=== PATIENT | female | born 1950 | race Caucasian/White ===

== ENCOUNTER 2024-10-26 14:21 | Outpatient (AMB) | payer MEDICARE, SELFPAY ==
--- NOTE | 2024-10-26 14:25 | HO.NEPHOV_ITS ---
Vital Signs 10/26/24 14:31 Height 5 ft 8 in Weight 183 lb 2 oz BMI 27.8 BP 150/72 H Blood Pressure Location Lt brachial Position Sitting Pulse 61 Pulse Source Pulse Oximeter Pulse Oximetry (%) 95 Oxygen Delivery Method Room Air Intake Visit Reasons: ENP: Abnormality of albumin-Conf Supervisor Of Instruction Required: No Accompanied by: Spouse Allergies hydrochlorothiazide Allergy (Verified 10/26/24 14:31) Unknown lisinopril Allergy (Verified 10/26/24 14:31) Unknown verapamil Allergy (Verified 10/26/24 14:31) Unknown adhesives Allergy (Uncoded 10/24/24 14:54) Unknown HPI Comments Details: I had the privilege of seeing Jessica in consultation for CKD and hypertension. She is a delightful 74 year old with H/O hypertension, dyslipidemia, CAD as well as cardiac arrest in 2009. She also has H/O CVA. She has H/O proteinuria. She has no H/O DM. She has some edema. She denies chest pain, SOB, PND or orthopnea. She is not aware of any renal artery stenosis. She denies nausea, vomiting, diarrhea, abdominal pain or orthostatic symptoms. She has no recurrent sore throat, epistaxis, hematuria, photosensitivity, skin rashes, sensori neural deafness. She did not have other complaints at the time of this office visit [facility] Medical History (Updated 12/09/24 @ 21:13 by Phani Lucas MD) Cerebral infarction Atrial fibrillation Pacemaker CAD (coronary artery disease) Hyperlipidemia Hypertension Surgical History (Updated 10/26/24 @ 14:28 by Becky Saleh MA) H/O heart artery stent H/O wrist surgery History of cataract surgery S/P ablation of atrial fibrillation Family History (Updated 10/26/24 @ 14:28 by Becky Saleh MA) Brother Cancer Heart disease Hypertension Atrial fibrillation Father Heart disease Sister Stroke Hypertension Social History (Updated 10/26/24 @ 14:26 by Becky Saleh MA) Alcohol intake: current Comment: Wine- Occasionally Patient Tobacco Use Status: Former Tobacco user Review of Systems Const All systems reviewed & are unremarkable except as noted in HPI and below Physical Exam Vital Signs: Last Vital Signs Pulse 61 10/26/24 14:31 BP 150/72 H 10/26/24 14:31 Pulse Ox 95 02/27/25 14:31 Oxygen Delivery Method Room Air 02/27/25 14:31 BMI result Body Mass Index 27.8 Const General: comfortable and no acute distress Orientation/consciousness: patient oriented x3 HEENT Head: Yes normocephalic Mouth: Normal oral and palatal mucosa present Eyes EOM: EOMs intact bilaterally Neck Neck: Yes supple Resp Auscultation: clear to auscultation bilaterally Cardio Jugular venous distension: no JVD Rate: regular rate GI Palpation (GI): Soft to palpation Auscultation: normal bowel sounds General: Yes no CVA tenderness Back/Spine/Pelvis Back: no CVA tenderness Skin General skin exam: no rashes or lesions noted Neuro General: patient oriented x3 and moves all extremities Extrem General: Yes edema Results Reviewed Nephrology Results: No Data to Display Assessment & Plan Assessment & Plan (1) Hypertension: Code(s): I10 - Essential (primary) hypertension Category: Medical Qualifiers: Hypertension type: primary hypertension Qualified Code(s): I10 - Essential (primary) hypertension (2) CKD stage 3a, GFR 45-59 ml/min: Code(s): N18.31 - Chronic kidney disease, stage 3a Category: Medical Plan 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 She has H/O CAD as well as CVA. She has H/O mild proteinuria. She is on Valsartan. She has some edema. I started her on furosemide. She may need Doppler of renal arteries. Her serum creatinine is currently stable. She does not take excess Na and avoids NSAID's. I did not make any other medication changes but further management is pending evolving data. Answered all questions. Orders: Orders Immunofixation Pnl, Serum 3 Months N18.31 - Chronic kidney disease, stage 3a, I10 - Essential (primary) hypertension Blood Urea Nitrogen 6 Months I10 - Essential (primary) hypertension, N18.31 - Chronic kidney disease, stage 3a Creatinine 3 Months N18.31 - Chronic kidney disease, stage 3a, I10 - Essential (primary) hypertension Blood Urea Nitrogen 3 Months N18.31 - Chronic kidney disease, stage 3a, I10 - Essential (primary) hypertension Electrolytes 3 Months N18.31 - Chronic kidney disease, stage 3a, I10 - Essential (primary) hypertension Calcium 3 Months N18.31 - Chronic kidney disease, stage 3a, I10 - Essential (primary) hypertension Creatinine 6 Months I10 - Essential (primary) hypertension, N18.31 - Chronic kidney disease, stage 3a Electrolytes 6 Months I10 - Essential (primary) hypertension, N18.31 - Chronic kidney disease, stage 3a Medications: New furosemide (Lasix) 20 mg PO 3XW 40 tabs 3RF 3 months Coding Level of Care Code New Pt Level 4 (89838) Diagnoses Primary hypertension I10 Hypertension type: primary hypertension CKD stage 3a, GFR 45-59 ml/min N18.31
[2024-10-26 14:31] VITALS: BP 150/72; PULSE 61; O2SAT 95; BMI 27.8
--- OUTSIDE RECORDS SUMMARY | 2024-10-26 17:29 | XMS_ITS | Clinical Summary ---
Author Organization [address] [place] [address] [place] [phone] Phone Care Team Providers Care Retail Account Manager Name Role Phone Loyd Moore MD Primary Care Provider [phone] Allergies Active Allergy Reactions Criticality Noted Date Comments Hydrochlorothiazide Rash Low 10/30/2019 Lisinopril Cough 10/30/2019 cough Verapamil Nausea Only 07/30/2020 Upset stomach Medications rosuvastatin (CRESTOR) 40 mg tablet Take 1 tablet (40 mg total) by mouth 1 (one) time each day. Active valsartan (DIOVAN) 320 mg tablet Take 1 tablet (320 mg total) by mouth 1 (one) time each day. Active nitroglycerin (NITROSTAT) 0.[address] 1 Tab under the tongue as needed for Chest pain. - Sublingual Active DICLOFENAC SODIUM TOP Place on the skin if needed. Diclofenac Sodium 1 % Gel-Apply 1 Int'l Units topically as needed. - Topical Active cholecalciferol (VITAMIN D-3) 25 mcg (1,000 unit) tablet Take 4 tablets (4,000 Units total) by mouth 1 (one) time each day. Active alendronate (FOSAMAX) 70 mg tablet Take 1 tablet (70 mg total) by mouth every 7 (seven) days. 4 Active aspirin 81 mg EC tablet Take 1 tablet (81 mg total) by mouth 1 (one) time each day. Active clopidogreL (PLAVIX) 75 mg tablet Take 1 tablet (75 mg total) by mouth 1 (one) time each day. Active amLODIPine (NORVASC) 10 mg tabletIndication s:Hypertension, unspecified type Take 1 tablet (10 mg total) by mouth 1 (one) time each day. 90 each 3 4 Active Active Problems Problem Noted Date Diagnosed Date Permanent atrial fibrillation 07/20/2024 PAH (pulmonary artery hypertension) 07/20/2024 Nonrheumatic tricuspid valve regurgitation 07/20 Nonrheumatic mitral valve regurgitation 07/20/20 24 Presence of Watchman left atrial appendage closu re device 07/10/2024 Mixed hyperlipidemia 06/13/2024 Edema 06/13/2024 Postural dizziness with presyncope 06/13/2024 Cough 06/13/2024 Coronary arteriosclerosis 06/13/2024 Assessment & Plan (07/03/2024 10:33 AM EST): No active angina. Tolerating aspirin, blood pressure lowering medicines and antiplatelet therapy with Plavix. Significant bruising noted. Continues on rosuvastatin with excellent lipid control. Nonrheumatic aortic valve regurgitation 06/13/20 24 Chronic venous insufficiency 06/13/2024 Occlusion of middle cerebral artery 06/13/2024 HTN (hypertension) 06/13/2024 Assessment & Plan (07/03/2024 10:34 AM EST): Systolic hypertension is not adequately controlled on current medicines. She confirmed that her home readings are elevated as well. She will continue a low- sodium diet, avoidance of heavy alcohol or constant NSAID use. Am going to increase amlodipine to 10 mg daily. Resolved Problems Problem Noted Date Diagnosed Date Resolved Date Arrhythmia 06/13/2024 07/20/2024 Assessment & Plan (07/03/2024 10:44 AM EST): Chronic persistent atrial fibrillation status post AV node ablation and permanent pacemaker. Status post Watchman device. Continue dual antiplatelet therapy until October. Will schedule transesophageal echocardiogram. Encounters Date Type Department Care Team Description 09/06/2024 9:55 AM EST Ancillary Procedure [facility] - [address] [place] [address] from Last 3 Months Immunizations Name Administration Dates Next Due Pfizer (ages 12 & older) VILLA S-CoV-2 COVID-19, mRNA, LNP-S, katie-sucrose, preservative free 01/15/2022 Pfizer SARS-CoV-2 COVID-19, mRNA, LNP-S, preservative free 06/19/2021,11/25/2020,11/03/2020 Surgical History Surgery Date Site/Laterality Comments CARDIAC CATH PROCEDURE Medical History Medical History Date Comments CKD (chronic kidney disease) Aphasia Social History Tobacco Use Types Packs/Day Years [...] Orientation Straight 07/10/2024 11 :29 AM EST Obstetrics History Last Filed Vital Signs Vital Sign Reading Time Taken Comments Blood Pressure 136/70 07/20/2024 3:16 PM EST Pulse 78 07/20/2024 3:16 PM EST Temperature 36.6 ??C (97.8 ??F) 07/10/2024 11:[address] Respiratory Rate 18 07/10/2024 11:55 AM EST Oxygen Saturation 98% 07/20/2024 3:16 PM EST Inhaled Oxygen Concentration - - Weight 81.2 kg (179 lb) 07/20/2024 3:16 PM EST Height 172.7 cm (5' 8 ) 07/20/2024 3:16 PM EST Body Mass Index 27.22 07/20/2024 3:16 PM EST Plan of Treatment Upcoming Encounters Date Type Department Care Team (Late st Contact Info) Description 12/07/2024 8:30 AM EDT Ancillary Procedure [facility] - [address] [place] [address] 01/17/2025 1:30 PM EDT Ancillary Procedure [facility] - [address] [phone] Health Maintenance Due Date Last Done Comments Pneumococcal Vaccine: 50+ Years (1 of 1 - PCV) 1998 Depression Screening 08/06/2022 Falls Risk Assessment 08/06/2022 Hepatitis C Screening 08/06/2022 Osteoporosis Screening (Bone Density Screening) 08/06/2022 Social Influencers of Health Screening 08/06/2022 RSV Immunization Patients 60+ Years Old (1 - 1-dose 75+ series) 2023 Medicare Annual Wellness Visit 10/15/2023 10/15/2022 COVID-19 Vaccine ( - season) 2024 01/15/2022, 06/19/2021, 11/25/2020, Additional history exists Influenza Vaccine (#1) 2024 , 05/11/2023, 05/25/2022, Additional history exists Hypertension/CHF/CAD Annual BMP Blood Test 10/06/2025 10/06/2024, 05/02/2024, 05/02/2024 Cholesterol Screening (Lipid Panel) 10/06/2029 10/06/2024 DTaP,Tdap,and Td Vaccines (2 - Td or Tdap) 05/23/2032 05/23/2022 Zoster Vaccines Completed 04/10/2024, 0601/2024, 07/09/2014 HIB Vaccines Aged Out No longer eligi ble based on patient's age to complete this topic HPV Vaccines Aged Out No longer eligi ble based on patient's age to complete this topic Hepatitis A Vaccines Aged Out No long er eligible based on patient's age to complete this topic Hepatitis B Vaccines Aged Out No long er eligible based on patient's age to complete this topic IPV Vaccines Aged Out No longer eligi ble based on patient's age to complete this topic MMR Vaccines Aged Out No longer eligi ble based on patient's age to complete this topic Meningococcal ACWY Vaccine Aged Out N o longer eligible based on patient's age to complete this topic Meningococcal B Vacine Aged Out No lo nger eligible based on patient's age to complete this topic RSV Immunization Patients Under 20 months Aged Out No longer eligible based on patient's age to complete this topic Varicella Vaccines Aged Out No longer eligible based on patient's age to complete this topic Medical Devices Implanted Type Area Quarantine Officer Device Identifier Shelf Expiration Date Model / Serial / Lot Medt-Card [id number] Implanted:03/2020 (Quantity not on file) Cardiac Pacemaker [employer] - CARDIAC RHYTH-CRDM [id number] / [id number] S / Device Clsur Watchman Flx Pro Aurea 35mm Bsci-Prnt [id number] Implanted:Qty : 1 on 05/11/2024 by Chito Cuellar MD Left: Chest Your Image by Brooke BRANDEN 01/19/2027 [id number] / / [id number] Procedures Procedure Name Priority Date/Time Associated Diagnosis Comments MICROALBUMIN CREATININE URINE RATIO Routine 10/06/2024 12:40 PM EST Essential hypertension, malignant COMPREHENSIVE METABOLIC PANEL Routine 10/06/2024 9:27 AM EST Essential hypertension, malignant LIPID PANEL WITH REFLEX TO DIRECT LDL Routine 10/06/2024 9:27 AM EST Essential hypertension, malignant CARDIAC DEVICE CHECK- REMOTE- MURJ Routine 09/06/2024 9:51 AM EST from Last 3 Months Results * (ABNORMAL) Microalbumin creatinine urine ratio (10/06/2024 12:40 PM EST) Creatinine, Urine 129.0 mg/dL LAB CHEMISTRY METHOD 10/06/2024 3:52 PM EST [facility] Microalb, Ur 474.0(H) 0.0 - 29.0 mg/L LAB CHEMISTRY METHOD 10/06/2024 3:52 PM EST [facility] Microalb/Crea t Ratio 367(H) <30 mg/g creat LAB CHEMISTRY METHOD 10/06/2024 3:52 PM EST [facility] Urine Urine specimen obtained by clean catch procedure / Unknown Non-blood Collection / Unknown 10/06/2024 12:40 PM EST 10/06/2024 12:40 PM EST us Vi [facility] URINE ORDERABLES Final Result [facility] [address] [place] [address], [place] [phone] * Lipid panel with reflex to direct LDL (10/06/2024 9:27 AM EST) Cholesterol 134 0 - 200 mg/dL LAB CHEMISTRY METHOD 10/06/2024 12:57 PM EST [facility] Triglycerides 49 0 - 150 mg/dL LAB CHEMISTRY METHOD 10/06/2024 12:57 PM EST [facility] HDL 83 >=40 mg/dL LAB CHEMISTRY METHOD 10/06/2024 12:57 PM [facility] LDL Calculated 41 0 - 100 mg/dL LAB CHEMISTRY METHOD 10/06/2024 12:57 PM [facility] VLDL Cholesterol Huey 9.8 mg/dL LAB CHEMISTRY METHOD 10/06/2024 12:57 PM [facility] Non HDL Chol. (LDL+VLDL) 51 <145 mg/dL LAB CHEMISTRY METHOD 10/06/2024 12:57 PM [facility] Chol/HDL Ratio 1.6 0.0 - 4.4 LAB CHEMISTRY METHOD 10/06/2024 12:57 PM [facility] Blood Venous blood specimen / Unknown Venipuncture / Unknown 10/06/2024 9:27 AM EST 10/06/2024 9:27 AM EST us Vi [facility] BLOOD ORDERABLES Final Result [facility] [address] [place] [address], [place] [phone] * (ABNORMAL) Comprehensive metabolic panel (10/06/2024 9:27 AM EST) Sodium 140 133 - 145 mmol/L LAB CHEMISTRY METHOD 10/06/2024 12:54 PM [facility] Potassium 4.3 3.5 - 5.5 mmol/L LAB CHEMISTRY METHOD 10/06/2024 12:54 PM [facility] Chloride 109 96 - 110 mmol/L LAB CHEMISTRY METHOD 10/06/2024 12:54 PM [facility] CO2 24 21 - 32 mmol/L LAB CHEMISTRY METHOD 10/06/2024 12:54 PM [facility] Anion Gap 7 3 - 11 LAB CHEMISTRY METHOD 10/06/2024 12:54 PM [facility] Glucose 92 70 - 100 mg/dL LAB CHEMISTRY METHOD 10/06/2024 12:54 PM [facility] BUN 27(H) 5 - 25 mg/dL LAB CHEMISTRY METHOD 10/06/2024 12:54 PM [facility] Creatinine 1.11(H) 0.50 - 1.10 mg/dL LAB CHEMISTRY METHOD 10/06/2024 12:54 PM [facility] eGFR 52(L) >=60 mL/min/1. 73m2 LAB CHEMISTRY METHOD 10/06/2024 12:54 PM [facility] Comment:Calculation based on the??Chronic Kidney Disease Epidemiology Collaboration (CKD-EPI) equation refit??without adjustment for race. BUN/Creatinine Ratio 24.3 LAB CHEMISTRY METHOD 10/06/2024 12:54 PM [facility] Calcium 9.1 8.5 - 10.5 mg/dL LAB CHEMISTRY METHOD 10/06/2024 12:54 PM [facility] AST (SGOT) 21 10 - 42 unit/L LAB CHEMISTRY METHOD 10/06/2024 12:54 PM [facility] ALT (SGPT) 17 10 - 60 unit/L LAB CHEMISTRY METHOD 10/06/2024 12:54 PM [facility] Alkaline Phosphatase 76 42 - 121 unit/L LAB CHEMISTRY METHOD 10/06/2024 12:54 PM EST [facility] Total Protein 6.8 6.0 - 8.0 g/dL LAB CHEMISTRY METHOD 10/06/2024 12:54 PM EST [facility] Albumin 3.9 3.2 - 5.0 g/dL LAB CHEMISTRY METHOD 10/06/2024 12:54 PM EST [facility] Total Bilirubin 0.7 0.0 - 1.4 mg/dL LAB CHEMISTRY METHOD 10/06/2024 12:54 PM EST [facility] Blood Venous blood specimen / Unknown Venipuncture / Unknown 10/06/2024 9:27 AM EST 10/06/2024 9:27 AM EST [facility] BLOOD ORDERABLES Final Result Performing Organization Address City/State/[facility] Co de Phone Number [facility] [address] [place] [address], * Cardiac device check - Remote- MURJ (09/06/2024 9:51 AM EST) Date Time Interrogation Session [id number] CV DEVICE CHECK Type Interrogation Session Remote CV DEVICE CHECK Implantable Pulse Generator Quarantine Officer MDT CV DEVICE CHECK Implantable Pulse Generator Type IPG CV DEVICE CHECK Implantable Pulse Generator Model [id number] CV DEVICE CHECK Implantable Pulse Generator Serial Number [id number] CV DEVICE CHECK Implantable Pulse Generator Implant Date [id number] CV DEVICE CHECK Battery Remaining Longevity 96.0 CV DEVICE CHECK Battery Voltage 2.980 CV D EVICE CHECK Battery CASH APPLICATION CLERK Trigger 2.558 CV DEVICE CHECK Battery Status Middle of Service CV DEVICE CHECK Nish Statistic RV Percent Paced 99.99 CV DEVICE CHECK Lead Channel Sensing Intrinsic Amplitude 11.700 CV DEVICE CHECK Lead Channel Setting Sensing Sensitivity 2.00 CV DEVICE CHECK Lead Channel Impedance Value 530 CV DEVICE CHECK Lead Channel Pacing Threshold Amplitude 0.500 CV DEVICE CHECK Lead Channel Pacing Threshold Pulse Width 0.2 CV DEVICE CHECK Lead Channel RV Pacing Threshold Date 2024-09-05 CV DEVICE CHECK Lead Channel Setting Pacing Amplitude 1.000 CV DEVICE CHECK Lead Channel Setting Pacing Pulse Width 0.2 CV DEVICE CHECK Nish Setting Mode (NBG Code) VVIR CV DEVICE CHECK Nish Setting Lower Rate Limit 60 CV DEVICE CHECK Nish Setting Maximum Sensor Rate 120 CV DEVICE CHECK Date of Service 2024-09-15 CV DEVICE CHECK Anatomical Region Laterality Modality Device Interroga tion 09/05/2024 12:4 7 PM EST Impressions 09/06/2024 9:42 AM EST Normal Remote: No Events * Normal Device Function * Alerts or events: None * Battery: OK, 8.00 yrs * Sensing, impedance and thresholds reviewed * Programmed parameters reviewed * Presenting rhythm reviewed * Heart Rate Histograms reviewed * No significant changes noted Normal Remote: No Events * Normal Device Function * Alerts or events: None * Battery: , * Sensing, impedance and thresholds reviewed * Programmed parameters reviewed * Presenting rhythm reviewed * Heart Rate Histograms reviewed * No significant changes noted Narrative Procedure Note Chito Cuellar MD - 09/06/2024 IMPRESSION: Normal Remote: No Events * Normal Device Function * Alerts or events: None * Battery: OK, 8.00 yrs * Sensing, impedance and thresholds reviewed * Programmed parameters reviewed * Presenting rhythm reviewed * Heart Rate Histograms reviewed * No significant changes noted Normal Remote: No Events * Normal Device Function * Alerts or events: None * Battery: , * Sensing, impedance and thresholds reviewed * Programmed parameters reviewed * Presenting rhythm reviewed * Heart Rate Histograms reviewed * No significant changes noted Chito Cuellar MD CV IMPLANTABLE CARDIAC DEVICE PROCEDURES Final Result from Last 3 Months Insurance MEDICARE [facility] Advance Directives Documents on File Type Date Recorded Patient Plain Goods Hemmer Expl anation Health Care Decision (hx) 05/11/2024 ADVANCE DIRECTIVE AN D LIVING WILL Health Care Decision (hx) 02/14/2024 ADVANCE DIRECTIVE Health Care Decision (hx) 02/14/2024 ADVANCE DIRECTIVE Care Teams Retail Account Manager Relationship Specialty Start Date End Date Loyd Moore MD [address] [place] [phone] PCP - General 12/07/23
--- OUTSIDE RECORDS SUMMARY | 2024-10-26 17:29 | XMS_ITS ---
Author Organization [facility] Address [address] [place] [address] Care Team Providers [place] Dispatch Supervisor Name Role Phone ISAEL ANETTE Primary Care Provider [phone] Allergies Allergen (clinical drug ingredient) Drug/Non Drug Allergy documented on EMR Reaction Allergy Type Onset Date Status adhesives (uncoded) Unknown Allergy Active hydrochlorothiazide hydroCHLOROthiazide Unknown D rug Allergy Active Lisinopril Unknown Drug Allergy Active verapamil Verapamil HCl Unknown Drug Allergy Active amlodipine Amlodipine Dependent edema Drug Allergy 10/05/19 25 Active Reason For Referral Reason CKD 3A- Dr Lucas Diagnosis 1 Chronic kidney disea se, stage 3 unspecified (N18.30) Referral Organization [facility] Referring Provider First Name ANETTE Referring Provider Last Name MIKHAILCem Referring Provider Speciality Internal M edicine Referred Provider Specialty Nephrology General Notes Referral faxed to [facility]. Please call patient to schedule.Malini Christy 10/20/2024 09:48:06 AM > Referral Priority Routine REASON FOR VISIT 1 week follow up Medications Medication SIG (Take, Route, Frequency, Duration) Notes Start Date End Date Status Sucralfate 1 GM 1 tablet on an empty stomach Orally Twice a day for 30 days 10/05/2024 Active Aspir-81 Active Clopidogrel Bisulfate 75 MG 1 tablet Ora lly Once a day Active Vitamin D 25 MCG (1000 UT) 1 tablet Oral ly Once a day Active Carvedilol 6.25 MG 1 tablet with food O rally Twice a day for 90 days Active Pantoprazole Sodium 20 MG TAKE 1 TABLET BY MOUTH DAILY 0.5 TO 1 HOUR BEFORE BREAKFAST for 90 Active Rosuvastatin Calcium 40 MG 1 tablet Oral ly Once a day Active Diovan 320 MG 1 tablet Orally Once a day Active Social History Tobacco Use: Social History Observation Description Date Details (start date - stop date) Former Smoker NA - NA Tobacco Use/Smoking Question Answer Notes Are you a former smoker How long has it been since you last smoked? > 10 years Problems Problem Type SNOMED Code ICD Code Onset Dates Problem Status W/U Status Risk Notes Problem Peripheral venous insufficiency (58103071) Venous insufficiency (chronic) (peripheral) (I87.2) Active confirmed Vital Signs Temperature 95.6 degrees Fahrenheit 10/11/19 25 Oximetry 97 % 10/11/2024 Heart Rate 63 /min 10/11/2024 Blood pressure systolic 130 mm Hg 10/11/19 25 Blood pressure diastolic 80 mm Hg 025 Weight 179.4 lbs 10/11/2024 BMI 27.27 kg/m2 10/11/2024 Height 5'8 in 10/11/2024 Encounters Encounter Location Date Provider Diagnosis [facility] [address] [address] 10/11/2024 ANETTE KIRKLAND Venous insufficiency (chronic) (peripheral) I87.2 ; Essential (primary) hypertension I10 ; Mixed hyperlipidemia E78.2 ; Unspecified atrial fibrillation I48.91 and Gastro-esophageal reflux disease without esophagitis K21.9 Assessments Encounter Date Diagnosis (ICD Code) Assessment Notes Treatment Notes Treatment Clinical Notes Section Notes 10/11/2024 Venous insufficiency (chronic) (peripheral) (ICD-10 - I87.2) Mrs Flores is a 74-year-old lady with CAD; s/p cardiac arrest in 2009, status post pacemaker for sick sinus rhythm, atrial fibrillation s/p ablation x 3; follows up with Dr Alvarado at [facility], hypertension and hyperlipidemia is here for follow-up. She was seen for acid reflux and bilateral pedal edema and amlodipine was stopped on last visit. Plan is as follows Acid reflux. She is off alendronate and she is on Protonix 20 mg 1 tablet daily along with sucralfate 1 g twice a day and dietary restrictions discussed. She is also waiting to see GI for upper endoscopy. Bilateral venous insufficiency. Amlodipine 5 mg was stopped on last visit but she has significant reticular veins and varicose veins which most likely is the reason for her bilateral pedal edema. At this point low-sodium diet, keep legs elevated and use compression stockings. Chronic kidney disease stage IIIa. She has mild bilateral pedal edema which is coming from venous insufficiency. She is given referral to Dr. Lucas for further evaluation and she may need diuretics for pedal edema. avoid NSAIDs and take Tylenol for pain Hypertension. Blood pressure well controlled on Coreg 6.25 mg 1 tablet twice a day and she is also on Diovan 320 mg 1 tablet daily. Atrial fibrillation status post ablation and watchman procedure. She is in sinus rhythm. She is on Plavix until October 2024. She is rate controlled. Hyperlipidemia. Continue Crestor 40 mg daily 10/11/2024 Essential (primary) hypertension (ICD-10 - I10) Mrs Flores is a 74-year-old lady with CAD; s/p cardiac arrest in 2009, status post pacemaker for sick sinus rhythm, atrial fibrillation s/p ablation x 3; follows up with Dr Alvarado at [facility], hypertension and hyperlipidemia is here for follow-up. She was seen for acid reflux and bilateral pedal edema and amlodipine was stopped on last visit. Plan is as follows Acid reflux. She is off alendronate and she is on Protonix 20 mg 1 tablet daily along with sucralfate 1 g twice a day and dietary restrictions discussed. She is also waiting to see GI for upper endoscopy. Bilateral venous insufficiency. Amlodipine 5 mg was stopped on last visit but she has significant reticular veins and varicose veins which most likely is the reason for her bilateral pedal edema. At this point low-sodium diet, keep legs elevated and use compression stockings. Chronic kidney disease stage IIIa. She has mild bilateral pedal edema which is coming from venous insufficiency. She is given referral to Dr. Lucas for further evaluation and she may need diuretics for pedal edema. avoid NSAIDs and take Tylenol for pain Hypertension. Blood pressure well controlled on Coreg 6.25 mg 1 tablet twice a day and she is also on Diovan 320 mg 1 tablet daily. Atrial fibrillation status post ablation and watchman procedure. She is in sinus rhythm. She is on Plavix until October 2024. She is rate controlled. Hyperlipidemia. Continue Crestor 40 mg daily 10/11/2024 Mixed hyperlipidemia (ICD-10 - E78.2) Mrs Flores is a 74-year-old lady with CAD; s/p cardiac arrest in 2009, status post pacemaker for sick sinus rhythm, atrial fibrillation s/p ablation x 3; follows up with Dr Alvarado at [facility], hypertension and hyperlipidemia is here for follow-up. She was seen for acid reflux and bilateral pedal edema and amlodipine was stopped on last visit. Plan is as follows Acid reflux. She is off alendronate and she is on Protonix 20 mg 1 tablet daily along with sucralfate 1 g twice a day and dietary restrictions discussed. She is also waiting to see GI for upper endoscopy. Bilateral venous insufficiency. Amlodipine 5 mg was stopped on last visit but she has significant reticular veins and varicose veins which most likely is the reason for her bilateral pedal edema. At this point low-sodium diet, keep legs elevated and use compression stockings. Chronic kidney disease stage IIIa. She has mild bilateral pedal edema which is coming from venous insufficiency. She is given referral to Dr. Lucas for further evaluation and she may need diuretics for pedal edema. avoid NSAIDs and take Tylenol for pain Hypertension. Blood pressure well controlled on Coreg 6.25 mg 1 tablet twice a day and she is also on Diovan 320 mg 1 tablet daily. Atrial fibrillation status post ablation and watchman procedure. She is in sinus rhythm. She is on Plavix until October 2024. She is rate controlled. Hyperlipidemia. Continue Crestor 40 mg daily 10/11/2024 Unspecified atrial fibrillation (ICD-10 - I48.91) Mrs Flores is a 74-year-old lady with CAD; s/p cardiac arrest in 2009, status post pacemaker for sick sinus rhythm, atrial fibrillation s/p ablation x 3; follows up with Dr Alvarado at [facility], hypertension and hyperlipidemia is here for follow-up. She was seen for acid reflux and bilateral pedal edema and amlodipine was stopped on last visit. Plan is as follows Acid reflux. She is off alendronate and she is on Protonix 20 mg 1 tablet daily along with sucralfate 1 g twice a day and dietary restrictions discussed. She is also waiting to see GI for upper endoscopy. Bilateral venous insufficiency. Amlodipine 5 mg was stopped on last visit but she has significant reticular veins and varicose veins which most likely is the reason for her bilateral pedal edema. At this point low-sodium diet, keep legs elevated and use compression stockings. Chronic kidney disease stage IIIa. She has mild bilateral pedal edema which is coming from venous insufficiency. She is given referral to Dr. Lucas for further evaluation and she may need diuretics for pedal edema. avoid NSAIDs and take Tylenol for pain Hypertension. Blood pressure well controlled on Coreg 6.25 mg 1 tablet twice a day and she is also on Diovan 320 mg 1 tablet daily. Atrial fibrillation status post ablation and watchman procedure. She is in sinus rhythm. She is on Plavix until October 2024. She is rate controlled. Hyperlipidemia. Continue Crestor 40 mg daily 10/11/2024 Gastro-esophageal reflux disease without esophagitis (ICD-10 - K21.9) Mrs Flores is a 74-year-old lady with CAD; s/p cardiac arrest in 2009, status post pacemaker for sick sinus rhythm, atrial fibrillation s/p ablation x 3; follows up with Dr Alvarado at [facility], hypertension and hyperlipidemia is here for follow-up. She was seen for acid reflux and bilateral pedal edema and amlodipine was stopped on last visit. Plan is as follows Acid reflux. She is off alendronate and she is on Protonix 20 mg 1 tablet daily along with sucralfate 1 g twice a day and dietary restrictions discussed. She is also waiting to see GI for upper endoscopy. Bilateral venous insufficiency. Amlodipine 5 mg was stopped on last visit but she has significant reticular veins and varicose veins which most likely is the reason for her bilateral pedal edema. At this point low-sodium diet, keep legs elevated and use compression stockings. Chronic kidney disease stage IIIa. She has mild bilateral pedal edema which is coming from venous insufficiency. She is given referral to Dr. Lucas for further evaluation and she may need diuretics for pedal edema. avoid NSAIDs and take Tylenol for pain Hypertension. Blood pressure well controlled on Coreg 6.25 mg 1 tablet twice a day and she is also on Diovan 320 mg 1 tablet daily. Atrial fibrillation status post ablation and watchman procedure. She is in sinus rhythm. She is on Plavix until October 2024. She is rate controlled. Hyperlipidemia. Continue Crestor 40 mg daily Plan Of Treatment Medication Medication Name Sig Start Date Stop Date Notes Carvedilol 6.25 MG 1 tablet with food O rally Twice a day for 90 days Referrals Referral Date Details 10/11/2024 10/11/2024, CKD 3A- Dr Lucas Next Appt Details Follow Up: 6 Months, Reason: Provider Name:Vi milian, 04/10/2025 09:30:00 AM, [address], [place], [address], Progress Notes * INDIRA FLORESOB:[birth year] (74 yo F)Acc No.[id number]:10/11/2024 Progress Notes Patient:MANOJ CRUMP Provider:?ANETTE KIRKLAND MD :1950???Age:74 Y???Sex:Female D ate:10/11/2024 Address:[address] [place] [address] Subjective: * Chief Complaints: * ???1 week follow up * HPI: ???Internal Medicine:?Mrs Flores is a 74-year-old lady with CAD; s/p cardiac arrest in 2009, status post pacemaker for sick sinus rhythm, atrial fibrillation s/p ablation x 3; follows up with Dr Alvarado at [facility], hypertension and hyperlipidemia here for Acid reflux and feeling gassy, she states that her symptoms started while she was on alendronate which she has stopped taking the medication and has informed the provider.? She was started on Protonix 20 mg daily along with sucralfate 1 g twice a day and she mentioned her symptoms has improved. ?She also mentions that her lower extremities have been swelling. Her amlodipine was stopped and there is a slight improvement in bilateral pedal edema.? Her recent blood work shows chronic kidney disease stage IIIa.? She has significant reticular veins and bilateral pedal edema because of venous insufficiency. She denies any chest pain, shortness of breath, dyspnea on exertion, orthopnea.? She does not have history of CHF.? The previous kidney function was remarkable for GFR of 51.? and amlodipine 5 mg. was stopped on last appointment?She does not appear anxious or depressed. She denies any other active issues or concerns. * ROS:?General/Constitutional:?Overall health?Good.?Change in appetite?denies.?Chills?denies.?Fever?denies.?Night sweats?denies.?Sleep disturbance?denies.?Weight gain?denies.?Weight loss?denies.?Neurologic:?Difficulty speaking?denies.?Dizziness?denies.?Gait abnormality?denies.?Headache?denies.?Loss of strength?denies.?Memory loss?denies.?Seizures?denies.?Tingling/Numbness?denies .?Ophthalmologic:?Blurred vision?denies.?Discharge?denies.?Dry eye?denies.?Red eye?denies.?ENT:?Change in Voice?Denies.?Cold Symptoms?Denies.?Dizziness?Denies.?Nasal Congestion?Denies.?Otalgia?Denies.?postnasal drip?Denies.?Blocked ear?denies.?Nosebleed?denies.?Snoring?denies.?Cardiovascular:?Diaphoresis?Denies.?Pedal Edema?Denies.?PND (Paroxsymal nocturnal dyspnea)?Denies.?Chest pain?denies.?Difficulty laying flat?denies.?Dyspnea on exertion?denies.?Heart murmur?denies.?Orthopnea?denies.?Respiratory:?Snoring?denies.?Asthma?denies.?Cough?denies.?Shortness of breath with exertion?denies.?Sputum production?denies.?Wheezing?denies.?Gastrointestinal:?Abdominal pain?Acid reflux and feeling gassy.?Change in bowel habits?denies.?Constipation?denies.?Decreased appetite?denies.?Diarrhea?denies.?Heartburn?denies.?Nausea?denies.?Vomiting?yanira es.?Musculoskeletal:?tingling/numbness?Denies.?myalgias?Denies.?Joint Swelling?Denies.?extremeties?normal.?Arthritis?denies.?Back problems?denies.?Carpal tunnel?denies.?Joint stiffness?denies.?Muscle aches?denies.?Endocrine:?Bowel Changes?Denies.?Breast Discharge?Denies.?poor libido?Denies.?Cold intolerance?denies.?Excessive sweating?denies.?Excessive thirst?denies.?Frequent urination?denies.?Thyroid problems?denies.?Skin:?Bruising?Denies.?Eczema?denies.?Hair changes?denies.?Rash?denies.?Skin lesion(s)?denies.?Psychiatric:?Anxiety?denies.?Depressed mood?denies.?Difficulty sleeping?denies.?Nervous breakdown?denies.?Substance abuse?denies.?Urology:?abnormal menstrual bleeding?denies.?blood in urine?denies.?burning on urination?denies.?difficulty urinating?denies.?discharge?denies.?dysuria?denies.? * Medical History:? * Surgical History:? * Hospitalization/Major Diagno stic Procedure:? * Family History:?Siblings: br other had cancer, diagnosed with Heart Disease.?Father: diagnosed with Heart Disease.? * Social History:?Tobacco Use:?Tobacco Use/Smoking?Are you a?former smoker ?How long has it been since you last smoked??> 10 years ???Drugs/Alcohol:?Do you drink alcohol?: yes?.?What kind of alcohol do you drink: wine 2-3 a week. ???Miscellaneous:?Children: 2 adopted. ?Exercise: Patient exercises. ?Marital status: . 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 * Medications:?TakingSucralfat e 1 GM Tablet 1 tablet on an empty stomach Orally Twice a day Aspir-81 Clopidogrel Bisulfate 75 MG Tablet 1 tablet Orally Once a day Vitamin D 25 MCG (1000 UT) Tablet 1 tablet Orally Once a day Diovan 320 MG Tablet 1 tablet Orally Once a day Rosuvastatin Calcium 40 MG Tablet 1 tablet Orally Once a day Carvedilol 6.25 MG Tablet 1 tablet with food Orally Twice a day Pantoprazole Sodium 20 MG Tablet Delayed Release TAKE 1 TABLET BY MOUTH DAILY 0.5 TO 1 HOUR BEFORE BREAKFAST Taking Sucralfate 1 GM Tablet 1 tablet on an empty stomach Orally Twice a day Taking Aspir-81 Taking Clopidogrel Bisulfate 75 MG Tablet 1 tablet Orally Once a day Taking Vitamin D 25 MCG (1000 UT) Tablet 1 tablet Orally Once a day Taking Diovan 320 MG Tablet 1 tablet Orally Once a day Taking Rosuvastatin Calcium 40 MG Tablet 1 tablet Orally Once a day Taking Carvedilol 6.25 MG Tablet 1 tablet with food Orally Twice a day Taking Pantoprazole Sodium 20 MG Tablet Delayed Release TAKE 1 TABLET BY MOUTH DAILY 0.5 TO 1 HOUR BEFORE BREAKFAST DiscontinuedMucinex 600 MG Tablet Extended Release 12 Hour 1 tablet as needed Orally every 12 hrs guaiFENesin-Codeine 100- 10 MG/5ML Solution 5 mL as needed Orally every 8 hrs Warfarin Sodium 2.5 MG Tablet 1 tablet Orally as directedMedication List reviewed and reconciled with the patientDiscontinued Mucinex 600 MG Tablet Extended Release 12 Hour 1 tablet as needed Orally every 12 hrs Discontinued guaiFENesin-Codeine 100-10 MG/5ML Solution 5 mL as needed Orally every 8 hrs Discontinued Warfarin Sodium 2.5 MG Tablet 1 tablet Orally as directedMedication List reviewed and reconciled with the patient * Allergies:?adhesives: Allerg yhydroCHLOROthiazide: AllergyVerapamil HCl: AllergyLisinopril: AllergyAmlodipine: Dependent edema - Side Effects - Onset Date 10/05/2024no[Allergies Verified] Objective: * Vitals:?Temp: 95.6 F, Oxygen sat %: 97 %, HR: 63 /min, BP: 118/78 mm Hg, 130/80 mm Hg, Wt: 179.4 lbs, BMI: 27.27 Index, Ht: 5'8 . * ???Past Orders: ???Lab:COMPREHENSIVE METABOL IC PANEL (Order Date - 10/06/2024) (Collection Date & Time - 10/06/2024 09:27 AM) ? Value Reference Range ?Sodium 140 133-145 - mmo l/L ?Potassium 4.3 3.5-5.5 - mmol/L ?Chloride 109 96-110 - mm ol/L ?CO2 24 21-32 - mmol/L ?Anion Gap 7 3-11 - ?Glucose 92 70-100 - mg/ dL ?BUN 27 H 5-25 - mg/dL ?Creatinine 1.11 H 0.50-1.10 - mg/dL ?eGFR 52 L >=60 - mL/min/1 .73m2 ?BUN/Creatinine Ratio 24.3 - ?Calcium 9.1 8.5-10.5 - m g/dL ?AST (SGOT) 21 10-42 - u nit/L ?ALT (SGPT) 17 10-60 - u nit/L ?Alkaline Phosphatase 76 42-121 - unit/L ?Total Protein 6.8 6.0-8. 0 - g/dL ?Albumin 3.9 3.2-5.0 - g/ dL ?Total Bilirubin 0.7 0.0- 1.4 - mg/dL ???Lab:MICROALBUMIN CREATINI NE URINE RATIO (Order Date - 10/06/2024) (Collection Date & Time - 10/06/2024 12:40 PM) ? Value Reference Range ?Creatinine, Urine 129.0 - mg/dL ?Microalb, Ur 474.0 H 0.0-29. 0 - mg/L ?Microalb/Creat Ratio 367 H <30 - mg/g creat ???Lab:LIPID PANEL WITH REFL EX TO DIRECT LDL (Order Date - 10/06/2024) (Collection Date & Time - 10/06/2024 09:27 AM) ? Value Reference Range ?Cholesterol 134 0-200 - mg/dL ?Triglycerides 49 0-150 - mg/dL ?HDL 83 >=40 - mg/dL ?LDL Calculated 41 0-100 - mg/dL ?VLDL Cholesterol Huey 9.8 - mg/dL ?Non HDL Chol. (LDL+VLDL) 51 <145 - mg/dL ?Chol/HDL Ratio 1.6 0.0-4 .4 - * Examination: ???General Examination: ?Psychiatry?Normal.?GENERAL APPEARANCE:?Well developed, well nourished, in no acute distress.?MUSCULOSKELETAL:?Normal.?HEAD:?Normocephalic, atraumatic.?EYES:?Pupils equal, round, reactive to light and accommodation, sclera non-icteric.?EARS:?Normal.?ORAL CAVITY:?Normal.?THROAT:?Clear.?OROPHARYNX?Normal.?SINUSES?Normal.?NECK/THYROID:?Neck supple, full range of motion, no cervical lymphadenopathy.?SKIN:?Warm and dry, no suspicious lesions.,varicose veins are noted BL, more pronounced on the right.?HEART:?S1, S2 normalregular rate and rhythmgrade 2/6 systolic murmur at right upper sternal border.?LUNGS:?Normal.?BREASTS:?__.?ABDOMEN:?Soft, nontender, nondistended, bowel sounds present, normal.?EXTREMITIES:?2+ pitting edema right lower extremity.?PERIPHERAL PULSES:?Normal.?NEUROLOGIC:?Nonfocal,? appropriate?motor strength normal upper and lower extremities, sensory exam intact.?FEMALE GENITOURINARY:?__.?MALE GENITOURINARY:?__.?PODIATRIC:?Normal.?Assembler For Puller Over Hand? .? Assessment: * Assessment: 1.?Essential (primary) hyper tension - I10 (Primary)???2.?Venous insufficiency (chronic) (peripheral) - I87.2???3.?Mixed hyperlipidemia - E78.2???4.?Unspecified atrial fibrillation - I48.91???5.?Gastro-esophageal reflux disease without esophagitis - K21.9??? Mrs Flores is a 74-year-ol d lady with CAD; s/p cardiac arrest in 2009, status post pacemaker for sick sinus rhythm, atrial fibrillation s/p ablation x 3; follows up with Dr Alvarado at [facility], hypertension and hyperlipidemia is here for follow-up.? She was seen for acid reflux and bilateral pedal edema and amlodipine was stopped on last visit.? Plan is as follows Acid reflux.? She is off alendronate and she is on Protonix 20 mg 1 tablet daily along with sucralfate 1 g twice a day and dietary restrictions discussed.? She is also waiting to see GI for upper endoscopy. Bilateral venous insufficiency.? Amlodipine 5 mg was stopped on last visit but she has significant reticular veins and varicose veins which most likely is the reason for her bilateral pedal edema.? At this point low-sodium diet, keep legs elevated and use compression stockings. Chronic kidney disease stage IIIa.? She has mild bilateral pedal edema which is coming from venous insufficiency.? She is given referral to Dr. Lucas for further evaluation and she may need diuretics for pedal edema. avoid NSAIDs and take Tylenol for pain Hypertension.? Blood pressure well controlled on Coreg 6.25 mg 1 tablet twice a day and she is also on Diovan 320 mg 1 tablet daily. Atrial fibrillation status post ablation and watchman procedure.? She is in sinus rhythm.? She is on Plavix until October 2024.? She is rate controlled. Hyperlipidemia.? Continue Crestor 40 mg daily Plan: * Treatment: 2.?Others? Referral To:Nephrology ?Reason:CKD 3A- Dr Lucas * Procedure Codes:? * Follow Up:?6 Months * * Sign off status: Completed true * Provider:?ANETTE KIRKLAND MD Date:?10/11 Generated for Efern rodríguez/Kong/eTransmitting on:?10/26/2024 05:29 PM EST History and Physical Notes * HPI (History of Present Illness) Category Sub-Category Detail Notes Category Not es Internal Medicine Mrs Flores is a 74-year-old lady with CAD; s/p cardiac arrest in 2009, status post pacemaker for sick sinus rhythm, atrial fibrillation s/p ablation x 3; follows up with Dr Alvarado at [facility], hypertension and hyperlipidemia here for Acid reflux and feeling gassy, she states that her symptoms started while she was on alendronate which she has stopped taking the medication and has informed the provider. She was started on Protonix 20 mg daily along with sucralfate 1 g twice a day and she mentioned her symptoms has improved. She also mentions that her lower extremities have been swelling. Her amlodipine was stopped and there is a slight improvement in bilateral pedal edema. Her recent blood work shows chronic kidney disease stage IIIa. She has significant reticular veins and bilateral pedal edema because of venous insufficiency. She denies any chest pain, shortness of breath, dyspnea on exertion, orthopnea. She does not have history of CHF. The previous kidney function was remarkable for GFR of 51. and amlodipine 5 mg. was stopped on last appointment She does not appear anxious or depressed. She denies any other active issues or concerns. Examination Category Sub-Category Detail Notes Category Not es General Examination GENERAL APPEARANCE: Well dev eloped, well nourished, in no acute distress HEAD: Normocephalic, atrau matic EYES: Pupils equal, round, reactive to light and accommodation, sclera non-icteric EARS: Normal THROAT: Clear NECK/THYROID: Neck supple, full ra nge of motion, no cervical lymphadenopathy HEART: S1, S2 normal regula r rate and rhythm grade 2/6 systolic murmur at right upper sternal border LUNGS: Normal ABDOMEN: Soft, nontender, non distended, bowel sounds present, normal NEUROLOGIC: Nonfocal, appropriat e motor strength normal upper and lower extremities, sensory exam intact SKIN: Warm and dry, no jai picious lesions. , varicose veins are noted BL, more pronounced on the right EXTREMITIES: 2+ pitting edema rig ht lower extremity PERIPHERAL PULSES: Normal BREASTS: __ MUSCULOSKELETAL: Normal MALE GENITOURINARY: __ FEMALE GENITOURINARY: __ ORAL CAVITY: Normal PODIATRIC: Normal Psychiatry Normal OROPHARYNX Normal SINUSES Normal Assembler For Puller Over Hand Consultation Request Notes Referral Date Referring Provider Referred Provider Not es 10/11/2024 ANETTE KIRKLAND , CKD 3A- Dr Collado iel
--- OUTSIDE RECORDS SUMMARY | 2024-10-26 17:29 | XMS_ITS | Encounter Summary ---
Author Organization [facility] Address [address] [place] [address] Care Team Providers Care Final Inspector Balance Wheel Name Role Phone Loyd Moore MD Primary Care Provider [phone] Reason for Referral * Imaging (Routine) - Closed Specialty Diagnoses / Procedures Referred By Yuval liang Referred To Contact Cardiology Diagnoses Paroxysmal atrial fibrillation (CMS/HCC) Procedures Transesophageal echocardiogram (ANA) with possible cardioversion with PRN contrast TX ECHOCARDIOGRAPHY TRANSESOPHAGEAL REAL-TIME W IMG DOC INCL PROBE PLCMNT TX ECHOCARDIOGRAPHY DOPPLER COLOR FLOW MAPPING TX DOPPLER ECHO COMPLETE TX CARDIOVERSION ELECTIVE ELECTRICAL CONVERSION ARRHYTHMIA EXTERNAL Chito Cuellar MD [address] [place] [address] Phone: tel: fax: [facility] Referral ID Status Reason Start Date Expiration Date Visits Re quested Visits Authorized [id number] Closed 07/03/2024 07/03/2025 1 1 Reason for Visit * Imaging (Routine) - Closed Specialty Diagnoses / Procedures Referred By Yuval liang Referred To Contact Cardiology Diagnoses Paroxysmal atrial fibrillation (CMS/HCC) Procedures Transesophageal echocardiogram (ANA) with possible cardioversion with PRN contrast TX ECHOCARDIOGRAPHY TRANSESOPHAGEAL REAL-TIME W IMG DOC INCL PROBE PLCMNT TX ECHOCARDIOGRAPHY DOPPLER COLOR FLOW MAPPING TX DOPPLER ECHO COMPLETE TX CARDIOVERSION ELECTIVE ELECTRICAL CONVERSION ARRHYTHMIA EXTERNAL Chito Cuellar MD [address] [address] Phone: tel: fax: [facility] Referral ID Status Reason Start Date Expiration Date Visits Re quested Visits Authorized [id number] Closed 07/03/2024 07/03/2025 1 1 Encounter Details Date Type Department Care Team (Latest Contact Info) Description 07/10/2024 12:30 PM EST Hospital Encounter [facility] Cardiac Slot Supervisor [address] [place] [id number] Alecia Pastor MD [address] [place] [address] Paroxysmal atrial fibrillation (CMS/HCC) Social History Tobacco Use Types Packs/Day Years [...] 60 07/10/2024 11:55 AM EST Temperature 36.6 ??C (97.8 ??F) 07/10/2024 [...] AM EST Ridgisel gonzalez is , Brendan. [phone] documented in this encounter Plan of Treatment Upcoming Encounters Date Type Department Care Team (Late st Contact Info) Description 12/07/2024 8:30 AM EDT Ancillary Procedure [facility] [address] [facility] [address] [place] [address] 01/17/2025 1:30 PM EDT Ancillary Procedure [facility] [address] [place] [address] documented as of this encounter Procedures Procedure Name Priority Date/Time Associated Diagnosis Comments ANA COMPLETE W/COLOR FLOW AND SPECTRAL DOPPLER Routine 07/10/2024 12:52 PM EST Paroxysmal atrial fibrillation (CMS/HCC) documented in this encounter Results * AAN COMPLETE W/COLOR FLOW AND SPECTRAL DOPPLER (07/10/2024 [...] Angiograph y Narrative 07/12/2024 4:37 PM EST ?There is a well-positioned left atrial appendage occlusion device seen at the ostium of the left atrial appendage. ??There is a small insignificant leak around the device at its inferior aspect. ??Vena contracta measurement was only 0.22 cm. ?Trileaflet aortic valve which demonstrates moderate regurgitation with a centrally directed jet. ??Leaflets are mildly thickened. ??There is no aortic stenosis. ?The ascending aorta is mildly dilated (4.0 cm). ??The aortic root is upper normal in size. ?Normal biventricular systolic function. Transesophageal echocardiogram performed post Watchman left atrial appendage occlusion procedure. ??Device is well-positioned. ??There is an insignificant leak around the device [...] workstation. The probe was inserted by the fire protection engineer. There was no probe insertion difficulty. by anesthesia. The patient had no complications. Estimated blood loss: no blood loss. No specimens were collected. Clinical Background Post Watchman device evaluation. us Chito Cuellar MD CV ECHO PROCEDURES Final Resul t documented in this encounter Visit Diagnoses Diagnosis Presence of Watchman left atrial appendage closure device- Primary Paroxysmal atrial fibrillation (CMS/HCC) Atrial fibrillation Encounter for adjustment or management of cardiac device documented in this encounter Admitting Diagnoses Diagnosis Presence of Watchman left atrial appendage closure device documented in this encounter Orders Admission Count Last Ordered Date First Orde red Date INITIATE OBSERVATION STATUS 1 07/10/2024 documented in this encounter Care Teams Final Inspector Balance Wheel Relationship Specialty Start Date End Date Loyd Moore MD [address] [place] [address] PCP - General 12/07/23 documented as of this encounter
--- OUTSIDE RECORDS SUMMARY | 2024-10-26 17:29 | XMS_ITS ---
Author Name [facility] Organization Unknown Results Test Name/Text Value Interpretation Date Range Source BLOOD BANK CMNT PATIENT-IMP Normal [id number] [facility] ABO+RH GP BLD Normal [id number] [facility] BLOOD BANK CMNT PATIENT-IMP Normal [id number] [facility] ABO+RH GP BLD Normal [id number] [facility] BLD GP AB SCN SERPL QL Normal [id number] [facility] PT TIME PPP 40.1sec Above high normal [id number] 10.5 - 13.3 [facility] INR PPP 3.4 Above high normal [id number] 0.8 - 1.1 [facility] GLUCOSE BLDC GLUCOMTR MCNC 85mg/dL Normal [id number] 70 - 199 [facility] PT TIME PPP 13.7sec Above high normal [id number] 10.5 - 13.3 [facility] INR PPP 1.1 Normal [id number] 0.8 - 1.1 [facility] History of Medication Use Medication Directions Dispensed Refills Start Date End Date Stat nitroglycerin (NITROSTAT) 0.[address] 1 Tab under the tongue as needed for Chest pain. - Sublingual active dimenhyDRINATE (DRAMAMINE) injection 25 mg 25 mg, Intravenous, Once as needed, nausea, Nausea, vomiting, Starting on Whitney 05/11/24 at 0913, For 1 dose, PACU/Phase 1Administer 3rd unless given in the OR if zofran and decadron are ineffective and patient continues to be symptomatic.??INTRA MUSCULAR: No dilution required INTRAVENOUS: Must dilute 05/11/2024 active metoprolol tartrate (LOPRESSOR) 25 MG tablet Take 25 mg by mouth 2 (two) times a day. active clopidogrel (PLAVIX) 75 MG tablet Take 75 mg by mouth daily. active meperidine (DEMEROL) 25 MG/ML injection 12.5 mg 12.5 mg, Intravenous, Every 30 min PRN, shivering not due to postoperative hypothermia., Starting on Whitney 05/11/24 at 0913, For 2 doses, PACU/Phase 1May repeat x 1 in 30 minutes. 05/11/2024 active HYDROmorphone (DILAUDID) injection 0.2 mg 0.2 mg, Intravenous, Every 15 min PRN, moderate pain (4-6), Starting on Whitney 05/11/24 at 0913, PACU/Phase 1FOR PACU USE ONLY.??If unable to take by mouth.??Do not exceed 2 mg.?? 05/11/2024 active dexamethasone (DECADRON) injection 4 mg 4 mg, Intravenous, Once as needed, other, nausea, vomiting, Starting on Whitney 05/11/24 at 0913, For 1 dose, PACU/Phase 1Administer 2nd unless given in the OR if zofran is ineffective and patient continues to be symptomatic. 05/11/2024 active amLODIPine (NORVASC) tablet 5 mg Take 5 mg by mouth daily. active Diclofenac Sodium 1 % GEL topical Place onto the skin. Right hip active Cholecalciferol (VITAMIN D) 50 MCG (2000 UT) tablet Take 2,000 Units by mouth daily. active acetaminophen (TYLENOL) tablet 650 mg 650 mg, Oral, Every 6 hours PRN, mild pain (1-3), Starting on Wihtney 05/11/24 at 0913, PACU/Phase 1 05/11/2024 active rosuvastatin (CRESTOR) tablet 40 mg Take 40 mg by mouth daily. active DICLOFENAC SODIUM TOP Place on the skin if needed. Diclofenac Sodium 1 % Gel-Apply 1 Int'l Units topically as needed. - Topical active valsartan (DIOVAN) tablet 320 mg Take 1 tablet (320 mg total) by mouth daily. active rosuvastatin (CRESTOR) 40 mg tablet Take 1 tablet (40 mg total) by mouth 1 (one) time each day. active Cholecalciferol (VITAMIN D) 50 MCG (2000 UT) tablet Take 2,000 Units by mouth daily. active Problems Problem Status Onset Date Problem Type Date of Resolution Source Old anterior myocardial infarction active 2024-06-13 ProblemAct [facility] Coronary arteriosclerosis active 2024-06-13 ProblemAct [facility] Chronic venous insufficiency active 2024-06-13 ProblemAct [facility] Nonrheumatic aortic valve regurgitation active 2024-06-13 ProblemAct [facility] Persistent atrial fibrillation active 2024-06-13 ProblemAct [facility] Postural dizziness with presyncope active 2024-06-13 ProblemAct [facility] Presence of Watchman left atrial appendage closure device active 2024-07-10 ProblemAct [facility] Longstanding persistent atrial fibrillation (HCC) active EncounterDiagnosisAct [facility] Occlusion of middle cerebral artery active 2024-06-13 ProblemAct [facility] HTN (hypertension) active 2024-06-13 ProblemAct [facility] Encounter for adjustment or management of cardiac device active EncounterDiagnosisAct [facility] Mixed hyperlipidemia active 2024-06-13 ProblemAct [facility] Edema active 2024-06-13 ProblemAct [facility] Cough active 2024-06-13 ProblemAct [facility] Abnormality of left atrial appendage active 2019-10-30 ProblemAct [facility] Family history of hypercoagulable state active 2019-10-30 ProblemAct [facility] Paroxysmal atrial fibrillation (HCC) active EncounterDiagnosisAct [facility] Presence of Watchman left atrial appendage closure device active 2024-05-11 ProblemAct [facility] Persistent atrial fibrillation active 2019-10-30 ProblemAct [facility] Atrial fibrillation active 2024-05-11 ProblemAct [facility] Immunizations Vaccine Date Source Lot Number Status [facility] SARS-CoV-2 COVID-19, mRNA, LNP-S, preservative free 06/19/2021 [facility] [id number] completed [facility] SARS-CoV-2 COVID-19, mRNA, LNP-S, preservative free 11/25/2020 [facility] [id number] completed [facility] SARS-CoV-2 COVID-19, mRNA, LNP-S, preservative free 11/03/2020 [facility] [id number] completed [facility] (ages 12 & older) VILLA S-CoV-2 COVID-19, mRNA, LNP-S, katie-sucrose, preservative free 01/15/2022 [facility] [id number] completed
--- OUTSIDE RECORDS SUMMARY | 2024-10-26 17:29 | XMS_ITS ---
Author Organization [facility] Address [address] [facility] [address] [place] [address] Care Team Providers Care Apns Name Role Phone ANETTE KIRKLAND Primary Care Provider REASON FOR VISIT Nephrology Referral Encounters Encounter Location Date Provider Diagnosis [facility] [address] [place] [address] 10/20/2024 ANETTE KIRKLAND Plan Of Treatment Next Appt Details Provider Name:Vi milian, 04/10/2025 09:30:00 AM, [address], [place], [address], Progress Notes * INDIRA [birth year]ORESOB:[birth year] (74 yo F)Acc No.[id number]:10/20/2024 Patient:?MANOJ FLORES :1950???Age:74 Y???Sex:Female Address:[facility] [place] [address] * true * Date:? Generated for Ardeni marcos/Kong/eTransmitting on:?10/26/2024 05:28 PM EST
--- OUTSIDE RECORDS SUMMARY | 2024-10-26 17:29 | XMS_ITS | Patient Health Record ---
Author Organization [facility] Address [address] [place] [address] Care Team Providers Care Wellness Health Coach Name Role Phone ISAELANETTE Primary Care Provider Vi Ornelas Unavailable [phone] Allergies Allergen (clinical drug ingredient) Drug/Non Drug Allergy documented on EMR Reaction Allergy Type Onset Date Status adhesives (uncoded) Unknown Allergy Active hydrochlorothiazide hydroCHLOROthiazide Unknown D rug Allergy Active Lisinopril Unknown Drug Allergy Active verapamil Verapamil HCl Unknown Drug Allergy Active amlodipine Amlodipine Dependent edema Drug Allergy 10/05/19 25 Active Results Component Value Reference Range Notes MICROALBUMIN CREATININE URIN E RATIO Reviewed date:10/10/2024 04:35:59 PM Interpretation: Performing Lab: Notes/Report: Creatinine, Urine 129.0 Microalb, Ur 474.0 0.0-29.0 mg/L Microalb/Creat Ratio 367 <30 mg/g creat COMPREHENSIVE METABOLIC PANE L Reviewed date:10/11/2024 01:32:37 PM Interpretation: Performing Lab: Notes/Report: Sodium 140 133-145 mmol/L Potassium 4.3 3.5-5.5 mmol/L Chloride 109 96-110 mmol/L CO2 24 21-32 mmol/L Anion Gap 7 3-11 Glucose 92 70-100 mg/dL BUN 27 5-25 mg/dL Creatinine 1.11 0.50-1.10 mg/dL eGFR 52 >=60 mL/min/1.73m2 Calculati on based on the Chronic Kidney Disease Epidemiology Collaboration (CKD-EPI) equation refit without adjustment for race. BUN/Creatinine Ratio 24.3 Calcium 9.1 8.5-10.5 mg/dL AST (SGOT) 21 10-42 unit/L ALT (SGPT) 17 10-60 unit/L Alkaline Phosphatase 76 42-121 unit/L Total Protein 6.8 6.0-8.0 g/dL Albumin 3.9 3.2-5.0 g/dL Total Bilirubin 0.7 0.0-1.4 mg/dL LIPID PANEL WITH REFLEX TO D IRECT LDL Reviewed date:10/11/2024 01:33:00 PM Interpretation: Performing Lab: Notes/Report: Cholesterol 134 0-200 mg/dL Triglycerides 49 0-150 mg/dL HDL 83 >=40 mg/dL LDL Calculated 41 0-100 mg/dL VLDL Cholesterol Huey 9.8 Non HDL Chol. (LDL+VLDL) 51 <145 mg/dL Chol/HDL Ratio 1.6 0.0-4.4 Reason For Referral Reason Evaluation and manag ement Diagnosis 1 Age-related osteopor osis without current pathological fracture (M81.0) Referral Organization [facility] Referring Provider First Name ANETTE Referring Provider Last Name MIKHAIL Referring Provider Speciality Internal [facility] Referred Provider Specialty Rheumatology General Notes Referral faxed to [facility] F: [phone] , please contact patient for scheduling Referral Priority Routine Reason EGD- Was on ALendron ate please evaluate and treat Diagnosis 1 Gastro-esophageal re flux disease without esophagitis (K21.9) Referral Organization [facility] Referring Provider First Name Vi Referring Provider Last Name Ceci Referred Provider Specialty Gastroentero logy General Notes referral was faxed [facility]. Please contact patient for scheduling.Jaron Rashida 10/05/2024 10:19:22 AM > Referral Priority Routine Reason Please evaluate and treat Diagnosis 1 Abnormality of album in (R77.0) Referral Organization [facility] Referring Provider First Name ANETTE Referring Provider Last Name [facility] Referring Provider Speciality Internal edicine Referred Provider Specialty Nephrology General Notes Referral faxed to [facility]. Please contact the patient to schedule.Willa Kayla 10/10/2024 04:33:47 PM > Referral Priority Urgent Reason CKD 3A- Dr Lucas Diagnosis 1 Chronic kidney disea se, stage 3 unspecified (N18.30) Referral Organization [facility] Referring Provider First Name ANETTE Referring Provider Last Name ISAEL Referring Provider Speciality Internal M edicine Referred Provider Specialty Nephrology General Notes Referral faxed to [facility]. Please call patient to schedule.Malini Christy 10/20/2024 09:48:06 AM > Referral Priority Routine Medications Medication SIG (Take, Route, Frequency, Duration) Notes Start Date End Date Status Pantoprazole Sodium 20 MG TAKE 1 TABLET BY MOUTH DAILY 0.5 TO 1 HOUR BEFORE BREAKFAST for 90 Active Sucralfate 1 GM 1 tablet on an empty stomach Orally Twice a day for 30 days 10/05/2024 Active Aspir-81 Active Clopidogrel Bisulfate 75 MG 1 tablet Ora lly Once a day Active Vitamin D 25 MCG (1000 UT) 1 tablet Oral ly Once a day Active Diovan 320 MG 1 tablet Orally Once a day Active Rosuvastatin Calcium 40 MG 1 tablet Oral ly Once a day Active Carvedilol 6.25 MG 1 tablet with food O rally Twice a day for 90 days Active Immunizations Vaccine Route Administration Date Status Comme nts COVID 19 Pfizer Unknown 11/03/2020 Administered COVID 19 Pfizer Unknown 11/25/2020 Administered COVID 19 Pfizer Unknown 06/19/2021 Administered COVID Pfizer Unknown 01/15/2022 Administered Flu IM Intramuscular 05/16/2024 Administered Influenza, seasonal, injectable, 6-35 months Unknown 05/11/2023 Administered Shingrix Unknown 02/03/2024 Administered Tdap Unknown 05/23/2022 Administered Zoster Unknown 07/09/2014 Administered Social History Tobacco Use: Social History Observation Description Date Details (start date - stop date) Former Smoker NA - NA Tobacco Use/Smoking Question Answer Notes Are you a former smoker How long has it been since you last smoked? 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) Essential (hemorrhagic) thrombocythemia (D47.3) Active confirmed Problem Mixed hyperlipidemia (245493999) Mixed hyperlipidemia (E78.2) Active confirmed Problem Atrial fibrillation (92004300) Unspecified atrial fibrillation (I48.91) Active confirmed Problem Cerebral infarction (174733177) Cerebral infarction, unspecified (I63.9) Active confirmed Problem Pain co-occurrent and due to varicose veins of bilateral legs (84712041458141344 ) Varicose veins of bilateral lower extremities with pain (I83.813) Active confirmed Problem Peripheral venous insufficiency (87589137) Venous insufficiency (chronic) (peripheral) (I87.2) Active confirmed Problem Gastro-esophageal reflux disease without esophagitis (337371067) Gastro-esophageal reflux disease without esophagitis (K21.9) Active confirmed Problem Age-related osteoporosis (183071987) Age-related osteoporosis without current pathological fracture (M81.0) Active confirmed Problem Cardiac murmur, unspecified (R01.1) Active confirmed Problem Cardiac pacemaker in situ (455358604) Presence of cardiac pacemaker (Z95.0) Active confirmed Problem Essential hypertension (30408314) Essential (primary) hypertension (I10) Active confirmed Problem Chronic kidney disease stage 3 (disorder) (029035392) Chronic kidney disease, stage 3 unspecified (N18.30) Active confirmed Problem Atherosclerotic heart disease of [place] coronary artery without angina pectoris (624613653458616) Coronary artery disease involving [place] coronary artery of [place] heart without angina pectoris (I25.10) Active confirmed Problem Age-related osteoporosis (773688535) Osteoporosis without current pathological fracture, unspecified osteoporosis type (M81.0) Active confirmed Vital Signs Heart Rate 63 /min 10/11/2024 Temperature 95.6 degrees Fahrenheit 10/11/2024 Blood pressure diastolic 80 mm Hg 10/11/2024 Oximetry 97 % 10/11/2024 Height 5'8 in 10/11/2024 Blood pressure systolic 130 mm Hg 10/11/2024 Weight 179.4 lbs 10/11/2024 BMI 27.27 kg/m2 10/11/2024 Encounters Encounter Location Date Provider Diagnosis [address] [address] 01/04/2024 ANETTE KIRKLAND Cerebral infarction, unspecified I63.9 and Unspecified atrial fibrillation I48.[address] [address] 04/05/2024 Vi Ornelas Personal history of other (healed) physical injury and trauma Z87.[address] [address] 05/16/2024 ANETTE KIRKLAND Encounter for genera l adult medical examination without abnormal findings Z00.00 ; Mixed hyperlipidemia E78.2 and Essential (primary) hypertension I10 [facility] [address] [place] [address] 05/29/2024 CHEEMA GUL Viral infection, unspecified B34.9 [facility] [address] [place] [address] 10/05/2024 Ghadeer Mazloum Gastro-esophageal reflux disease without esophagitis K21.9 ; Essential (primary) hypertension I10 and Edema, unspecified R60.9 [facility] [address] [place] [address] 10/11/2024 CHEEMA GUL Venous insufficiency (chronic) (peripheral) I87.2 ; Essential (primary) hypertension I10 ; Mixed hyperlipidemia E78.2 ; Unspecified atrial fibrillation I48.91 and Gastro-esophageal reflux disease without esophagitis K21.9 [facility] [address] [place] [address] 12/17/[address] [place] [address] 02/01/[address] [place] [address] 04/04/[address] [place] [address] [place] [address] 10/05/[address] [place] [address] 10/10/[address] [place] [address] 10/20/[address] [place] [address] 11/09/2023 CHEEMA GU Osteoporosis without current pathological fracture, unspecified osteoporosis type M81.[address] [address] [facility] [address] [address] 12/13/2023 [facility] [address] [address] 10/05/2024 Vi Ornelas Assessments Encounter Date Diagnosis (ICD Code) Assessment Notes Treatment Notes Treatment Clinical Notes Section Notes 11/09/2023 Osteoporosis without current pathological fracture, unspecified osteoporosis type (ICD-10 - M81.0) 01/04/2024 Cerebral infarction, unspecified (ICD-10 - I63.9) Mrs Atkinson is a 73-year-old lady with CAD; s/p cardiac arrest in 2009, status post pacemaker for sick sinus rhythm, atrial fibrillation s/p ablation x 3; follows up with Dr Alvarado at [facility] Cardiology, hypertension and hyperlipidemia here for hospital discharge follow up. Plan is as follows: Atrial fibrillation. She is rate-controlled and in sinus rhythm. Continue Eliquis 5 MG twice a day. she is an appropriate candidate for watchman Cerebral Infarction. CT imaging showed cut off at distal right posterior M2 branch. She is a poor candidate for thrombectomy as per neurology evaluation. She is stable at this point and she is on right medications and Plavix was added to Eliquis.She is on statins and blood pressure is well controlled Discharge notes discussed with patient and questions answered. Scribe services used to formulate this note under HIPAA compliance and under [place] law mandated for scribe services. Patient aware of service. Verbal consent and written consent taken from the patient. Patient understands and verbalizes understanding of the scribes services and all questions answered regarding scribes services. Patient agrees to use of scribes services. 04/05/2024 Personal history of other (healed) physical injury and trauma (ICD-10 - Z87.828) Mrs Atkinson is a 73-year-old lady with CAD; s/p cardiac arrest in 2009, status post pacemaker for sick sinus rhythm, atrial fibrillation s/p ablation x 3; follows up with Dr Alvarado at [facility], hypertension and hyperlipidemia here for wound on the right leg. plan as follows: Healed wound: - She was seen by wound care clinic for treatment and management. She is concerned about black eschar forming. PE shows a healed wound with black scab. No drainage or oozing to be concerned about. 05/16/2024 Encounter for general adult medical examination without abnormal findings (ICD-10 - Z00.00) Mrs Atkinson is a 74-year-old lady with CAD; s/p cardiac arrest in 2009, status post pacemaker for sick sinus rhythm, atrial fibrillation s/p ablation x 3; follows up with Dr Alvarado at [facility], hypertension and hyperlipidemia here for medicare annual wellness visit. Plan is as follows: Hypertension. Blood pressure well controlled on Diovan 320 MG, amlodipine 5 MG and clopidogrel 75 MG once a day. Hyperlipidemia. Continue Rosuvastatin 40 MG once a day. Atrial fibrillation s/p ablation x 3; follows up with Dr Alvarado at [facility] Eye screening. She sees her social service director regularly. Dental screening. She sees dentist regularly. Breast cancer screening. She is up-to-date on her mammogram. Female screening. She follows up with her tail end rider for breast and pelvic exams. Osteoporosis screening. She is up to date on BMD. Colon cancer screening. She had a cologuard done and it is good for 3 years. Immunizations. She is up-to-date on her COVID, TDAP, pneumonia and shingles vaccinations. Flu shot administered in the office today Screening blood work before next appointment. General health concerns discussed with patient. Scribe services used to formulate this note under HIPAA compliance and under [place] law mandated for scribe services. Patient aware of service. Verbal consent and written consent taken from the patient. Patient understands and verbalizes understanding of the scribes services and all questions answered regarding scribes services. Patient agrees to use of scribes services. 05/29/2024 Viral infection, unspecified (ICD-10 - B34.9) Mrs Atkinson is a 74-year-old lady with CAD; s/p cardiac arrest in 2009, status post pacemaker for sick sinus rhythm, atrial fibrillation s/p ablation x 3; follows up with Dr Alvarado at [facility] Cardiology, hypertension and hyperlipidemia here for complaining of cough which started last . She tested for COVID twice which came out negative. Denies fever/chills. Plan is as follows: Viral infection. Start guaifenesin-Codein e, 100-10 MG/5ML, 5 mL as needed, every 8 hrs for 7 days. Discussed it may take some time for symptoms to clear. Advised appropriate hydration. General health concerns discussed with patient. Scribe services used to formulate this note under HIPAA compliance and under [place] law mandated for scribe services. Patient aware of service. Verbal consent and written consent taken from the patient. Patient understands and verbalizes understanding of the scribes services and all questions answered regarding scribes services. Patient agrees to use of scribes services. 10/05/2024 Gastro-esophageal reflux disease without esophagitis (ICD-10 - K21.9) Mrs Atkinson is a 74-year-old lady with CAD; s/p cardiac arrest in 2009, status post pacemaker for sick sinus rhythm, atrial fibrillation s/p ablation x 3; follows up with Dr Alvarado at [facility] Cardiology, hypertension and hyperlipidemia here for Multiple chief complaints. She states that she was on alendronate for osteoporosis prescribed by a jet wiper which she has discontinued. She also complains of lower extremity swelling. GERD - It is most likely in the setting of being on alendronate as it is known to cause esophagitis. However she has discontinued the medication. I will start patient on pantoprazole and sucralfate. We will also do a referral to GI for endoscopy. - Patient is to follow with her jet wiper on alternative for alendronate possible injections Hypertension/edema - Unilateral right lower extremity pitting edema It is noted. There is 2+ bilateral edema. No tenderness to palpate, nontender and not warm, negative Homans sign. No concern for cellulitis, DVT. Her symptoms are more consistent With dependent edema secondary to being on amlodipine. I have switched patient to Coreg 6.25 twice daily. I have also advised patient on increasing hydration, for compression stockings and elevate the legs. -We will follow up in 1 week on blood pressure and acid reflux Screening blood work before next appointment General concerns have been discussed I have rendered the services for this patient under direct supervision of Dr. Kirkland, who did not see the patient but was available upon request 10/05/2024 Essential (primary) hypertension (ICD-10 - I10) Mrs Atkinson is a 74-year-old lady with CAD; s/p cardiac arrest in 2009, status post pacemaker for sick sinus rhythm, atrial fibrillation s/p ablation x 3; follows up with Dr Alvarado at [facility] Cardiology, hypertension and hyperlipidemia here for Multiple chief complaints. She states that she was on alendronate for osteoporosis prescribed by a jet wiper which she has discontinued. She also complains of lower extremity swelling. GERD - It is most likely in the setting of being on alendronate as it is known to cause esophagitis. However she has discontinued the medication. I will start patient on pantoprazole and sucralfate. We will also do a referral to GI for endoscopy. - Patient is to follow with her jet wiper on alternative for alendronate possible injections Hypertension/edema - Unilateral right lower extremity pitting edema It is noted. There is 2+ bilateral edema. No tenderness to palpate, nontender and not warm, negative Homans sign. No concern for cellulitis, DVT. Her symptoms are more consistent With dependent edema secondary to being on amlodipine. I have switched patient to Coreg 6.25 twice daily. I have also advised patient on increasing hydration, for compression stockings and elevate the legs. -We will follow up in 1 week on blood pressure and acid reflux Screening blood work before next appointment General concerns have been discussed I have rendered the services for this patient under direct supervision of Dr. Kirkland, who did not see the patient but was available upon request 10/11/2024 Venous insufficiency (chronic) (peripheral) (ICD-10 - I87.2) Mrs Atkinson is a 74-year-old lady with CAD; s/p cardiac arrest in 2009, status post pacemaker for sick sinus rhythm, atrial fibrillation s/p ablation x 3; follows up with Dr Alvarado at [facility] Card[facility], hypertension and hyperlipidemia is here [...] Essential (primary) hypertension (ICD-10 - I10) Mrs Atkinson is a 74-year-old lady with CAD; s/p cardiac arrest in 2009, status post pacemaker for sick sinus rhythm, atrial fibrillation s/p ablation x 3; follows up with Dr Alvarado at [facility] Cardiology, hypertension and hyperlipidemia is here [...] 10/11/2024 Mixed hyperlipidemia (ICD-10 - E78.2) Mrs Atkinson is a 74-year-old lady with CAD; s/p cardiac arrest in 2009, status post pacemaker for sick sinus rhythm, atrial fibrillation s/p ablation x 3; follows up with Dr Alvarado at [facility] Cardiology, hypertension and hyperlipidemia is here [...] controlled. Hyperlipidemia. Continue Crestor 40 mg daily 10/05/2024 Edema, unspecified (ICD-10 - R60.9) Mrs Atkinson is a 74-year-old lady with CAD; s/p cardiac arrest in 2009, status post pacemaker for sick sinus rhythm, atrial fibrillation s/p ablation x 3; follows up with Dr Alvarado at [facility], hypertension and hyperlipidemia here for Multiple chief complaints. She states that she was on alendronate for osteoporosis prescribed by a jet wiper which she has discontinued. She also complains of lower extremity swelling. GERD - It is most likely in the setting of being on alendronate as it is known to cause esophagitis. However she has discontinued the medication. I will start patient on pantoprazole and sucralfate. We will also do a referral to GI for endoscopy. - Patient is to follow with her jet wiper on alternative for alendronate possible injections Hypertension/edema - Unilateral right lower extremity pitting edema It is noted. There is 2+ bilateral edema. No tenderness to palpate, nontender and not warm, negative Homans sign. No concern for cellulitis, DVT. Her symptoms are more consistent With dependent edema secondary to being on amlodipine. I have switched patient to Coreg 6.25 twice daily. I have also advised patient on increasing hydration, for compression stockings and elevate the legs. -We will follow up in 1 week on blood pressure and acid reflux Screening blood work before next appointment General concerns have been discussed I have rendered the services for this patient under direct supervision of Dr. Kirkland, who did not see the patient but was available upon request 05/16/2024 Mixed hyperlipidemia (ICD-10 - E78.2) Mrs Atkinson is a 74-year-old lady with CAD; s/p cardiac arrest in 2009, status post pacemaker for sick sinus rhythm, atrial fibrillation s/p ablation x 3; follows up with Dr Alvarado at [facility] Card[facility], hypertension and hyperlipidemia here for medicare annual wellness visit. Plan is as follows: Hypertension. Blood pressure well controlled on Diovan 320 MG, amlodipine 5 MG and clopidogrel 75 MG once a day. Hyperlipidemia. Continue Rosuvastatin 40 MG once a day. Atrial fibrillation s/p ablation x 3; follows up with Dr Alvarado at [facility] Cardiology Eye screening. She sees her social service director regularly. Dental screening. She sees dentist regularly. Breast cancer screening. She is up-to-date on her mammogram. Female screening. She follows up with her tail end rider for breast and pelvic exams. Osteoporosis screening. She is up to date on BMD. Colon cancer screening. She had a cologuard done and it is good for 3 years. Immunizations. She is up-to-date on her COVID, TDAP, pneumonia and shingles vaccinations. Flu shot administered in the office today Screening blood work before next appointment. General health concerns discussed with patient. Scribe services used to formulate this note under HIPAA compliance and under [place] law mandated for scribe services. Patient aware of service. Verbal consent and written consent taken from the patient. Patient understands and verbalizes understanding of the scribes services and all questions answered regarding scribes services. Patient agrees to use of scribes services. 01/04/2024 Unspecified atrial fibrillation (ICD-10 - I48.91) Mrs Atkinson is a 73-year-old lady with CAD; s/p cardiac arrest in 2009, status post pacemaker for sick sinus rhythm, atrial fibrillation s/p ablation x 3; follows up with Dr Alvarado at [facility] Cardiology, hypertension and hyperlipidemia here for hospital discharge follow up. Plan is as follows: Atrial fibrillation. She is rate-controlled and in sinus rhythm. Continue Eliquis 5 MG twice a day. she is an appropriate candidate for watchman Cerebral Infarction. CT imaging showed cut off at distal right posterior M2 branch. She is a poor candidate for thrombectomy as per neurology evaluation. She is stable at this point and she is on right medications and Plavix was added to Eliquis.She is on statins and blood pressure is well controlled Discharge notes discussed with patient and questions answered. Scribe services used to formulate this note under HIPAA compliance and under [place] law mandated for scribe services. Patient aware of service. Verbal consent and written consent taken from the patient. Patient understands and verbalizes understanding of the scribes services and all questions answered regarding scribes services. Patient agrees to use of scribes services. 05/16/2024 Essential (primary) hypertension (ICD-10 - I10) Mrs Atkinson is a 74-year-old lady with CAD; s/p cardiac arrest in 2009, status post pacemaker for sick sinus rhythm, atrial fibrillation s/p ablation x 3; follows up with Dr Alvarado at [facility] Cardiology, hypertension and hyperlipidemia here for medicare annual wellness visit. Plan is as follows: Hypertension. Blood pressure well controlled on Diovan 320 MG, amlodipine 5 MG and clopidogrel 75 MG once a day. Hyperlipidemia. Continue Rosuvastatin 40 MG once a day. Atrial fibrillation s/p ablation x 3; follows up with Dr Alvarado at [facility] Cardiology Eye screening. She sees her social service director regularly. Dental screening. She sees dentist regularly. Breast cancer screening. She is up-to-date on her mammogram. Female screening. She follows up with her tail end rider for breast and pelvic exams. Osteoporosis screening. She is up to date on BMD. Colon cancer screening. She had a cologuard done and it is good for 3 years. Immunizations. She is up-to-date on her COVID, TDAP, pneumonia and shingles vaccinations. Flu shot administered in the office today Screening blood work before next appointment. General health concerns discussed with patient. Scribe services used to formulate this note under HIPAA compliance and under [place] law mandated for scribe services. Patient aware of service. Verbal consent and written consent taken from the patient. Patient understands and verbalizes understanding of the scribes services and all questions answered regarding scribes services. Patient agrees to use of scribes services. 10/11/2024 Unspecified atrial fibrillation (ICD-10 - I48.91) Mrs Atkinson is a 74-year-old lady with CAD; s/p cardiac arrest in 2009, status post pacemaker for sick sinus rhythm, atrial fibrillation s/p ablation x 3; follows up with Dr Alvarado at [facility] Cardiology, hypertension and hyperlipidemia is here [...] disease without esophagitis (ICD-10 - K21.9) Mrs Atkinson is a 74-year-old lady with CAD; s/p cardiac arrest in 2009, status post pacemaker for sick sinus rhythm, atrial fibrillation s/p ablation x 3; follows up with Dr Alvarado at [facility] Cardiology, hypertension and hyperlipidemia is here [...] Crestor 40 mg daily Plan Of Treatment Pending Test Test Name Order Date Bone Density 10/11/2023 Albumin/Creatinine Ratio,[id number] Lipid Panel-[id number] 10/05/2024 Comp. Metabolic Panel [id number] 2024 Future Test Test Name Order Date Bone Density 09/20/2023 Next Appt Details Provider Name:Vi milian, 04/10/2025 09:30:00 AM, [address] [place] [address], [phone], Insurance Providers Payer Name Payer Address Payer Phone Subscriber Number Group Number Insured Name Patient Relationship to Insured Coverage Start Date Coverage End Date Medicare [address] MIRIAMAUSTINPranay KORINASTEVE [phone] [id number] MANOJ ATKINSON Self - patient is the insured 3 [facility] [address] [place] [address] [id number] MANOJ ATKINSON Self - patient is the insured Medical (General) History Medical History History ICD Code hypertension hyperlipidemia CAD and s/p Cardiac arrest in 2009 s/p Pacemaker for SSS Atrial Fib AND S/P ABLATION 3 Times cerebral infarction middle cerebral rajiv ry Surgical History Surgery Date(Month/Year) bilateral cataract surgery s/p pacemaker right wrist fracture 2022
--- OUTSIDE RECORDS SUMMARY | 2024-10-26 17:29 | XMS_ITS ---
Author Organization [facility] Address [address] [address] Care Team Providers Care Order To Delivery Supervisor Name Role Phone ISAEL ANETTE Primary Care Provider Reason For Referral Reason Please evaluate and treat Diagnosis 1 Abnormality of album in (R77.0) Referral Organization [facility] Referring Provider First Name ANETTE Referring Provider Last Name ISAEL Referring Provider Speciality Internal M edicine Referred Provider Specialty Nephrology General Notes Referral faxed to [facility]. Please contact the patient to schedule.Willa Kayla 10/10/2024 04:33:47 PM > Referral Priority Urgent REASON FOR VISIT Nephrology Referral Encounters Encounter Location Date Provider Diagnosis [address] [address] 10/10/2024 ANETTE KIRKLAND Plan Of Treatment Referrals Referral Date Details 10/10/2024 10/10/2024, Please e valuate and treat Next Appt Details Provider Name:iV milian, 04/10/2025 09:30:00 AM, [address] [place] [address], [phone], Progress Notes * DIKRSCOTT LeónRAINAOB:[birth year] (74 yo F)Acc No.[id number]:10/10/2024 Patient:?MANOJ FLORES :1950???Age:74 Y???Sex:Female Address:[address] [place] [address] Subjective: * Chief Complaints: * ???Nephrology Referral * Medical History:? * Surgical History:? * Hospitalization/Major Diagno stic Procedure:? * Medications:? Objective: * Vitals:? * Physical Examination:? Assessment: Plan: * Treatment: * Procedure Codes:? * true * Date:? Generated for Efren rodríguez/Kong/Keithsmitting on:?10/26/2024 05:28 PM EST Consultation Request Notes Referral Date Referring Provider Referred Provider Not moises 10/10/2024 ANETTE KIRKLAND , Please evaluat e and treat
--- OUTSIDE RECORDS SUMMARY | 2024-10-26 17:29 | XMS_ITS | Clinical Summary ---
Author Organization [facility] Address [address] [place] [address] Care Team Providers Care Dean For Student Affairs Name Role Phone Dallin Eubanks MD Primary Care Provider [phone] Allergies Active Allergy Reactions Criticality Noted Date Comments Hydrochlorothiazide Rash Low 10/30/2019 Lisinopril 10/30/2019 cough Verapamil Other (See Comments) 04/24/2024 Upset stomach Medications Medication Sig Dispensed Refills Start Date End Date Status valsartan (DIOVAN) tablet 320 mg Take 1 tablet (320 mg total) by mouth daily. 0 Active Cholecalciferol (VITAMIN D) 50 MCG (2000 UT) tablet Take 2,000 Units by mouth daily. 0 Active rosuvastatin (CRESTOR) tablet 40 mg Take 1 tablet (40 mg total) by mouth every night at bedtime. 0 Active amLODIPine (NORVASC) tablet 5 mg Take 1 tablet (5 mg total) by mouth every night at bedtime. 0 Active Diclofenac Sodium 1 % GEL topical Place onto the skin. Right hip 0 Active aspirin EC 81 MG tablet Take 1 tablet (81 mg total) by mouth every night at bedtime. 0 Active clopidogrel (Plavix) 75 MG tablet Take 1 tablet (75 mg total) by mouth daily. 30 tablet 11 05/11/2024 05/11/2025 Active Active Problems Problem Noted Date Diagnosed Date Presence of Watchman left atrial appendage closu re device 05/11/2024 Atrial fibrillation 05/11/2024 Family history of hypercoagulable state 10/30/19 20 Persistent atrial fibrillation 10/30/2019 Abnormality of left atrial appendage 10/30/2019 Social History Tobacco Use Types Packs/Day Years Used Date Smoking Tobacco: Former Cigarettes 30 Smokeless Tobacco: Never Tobacco Cessation:Counseling Given: Not Answered Alcohol Use Standard Drinks/Week Comments Yes 7 (1 standard drink = 0.6 oz pur e alcohol) Sex and Gender Information Value Date Recorded Sex Assigned at Female 05/08/2024 4:51 PM EDT Gender Identity Not on file Sexual Orientation Not on file Job Start Date Occupation Industry Not on file Not on file Not on file Last Filed Vital Signs Vital Sign Reading Time Taken Comments Blood Pressure 124/63 05/11/2024 1:15 PM EDT Pulse 60 05/11/2024 1:15 PM EDT Temperature 36.7 ??C (98 ??F) 05/11/2024 10:30 AM EDT Respiratory Rate 19 05/11/2024 1:15 PM EDT Oxygen Saturation 93% 05/11/2024 1:15 PM EDT Inhaled Oxygen Concentration - - Weight 81.2 kg (179 lb 1.6 oz) 05/11/2024 6:45 A M EDT Height 172.7 cm (5' 8 ) 05/11/2024 6:45 AM EDT Body Mass Index 27.23 05/11/2024 6:45 AM EDT Plan of Treatment Health Maintenance Due Date Last Done Comments Hepatitis C Screening 1950 Depression Screening 1960 Preventative Health Evaluation 1966 DTap / Tdap / Td (1 - Tdap) 1967 Shingrix-Zoster Vaccine (1 of 2) 1998 Fall Risk Assessment 2013 Osteoporosis Screening (DEXA Scan) 2013 Pneumococcal Vaccine (1 of 1 - PCV) 2013 RSV Adult > 60+ Yrs or (1 - 1-dose 75+ series) 2023 COVID-19 Vaccine ( - season) 2024 01/15/2022, 06/19/2021, 11/25/2020, Additional history exists Influenza Vaccine (#1) 2024 3, 05/25/2022, 05/20/2021, Additional history exists Hepatitis B Vaccines Aged Out No long er eligible based on patient's age to complete this topic RSV Ped < 20 months Aged Out No longe r eligible based on patient's age to complete this topic Medical Devices Implanted Type Area Outreach Associate Device Identifier Shelf Expiration Date Model / Serial / Lot Device Clsur Watchman Flx Pro Aurea 35mm Bsci-Prnt [id number] - [id number] Implanted:Qty: 1 on 05/11/2024 by Chito Cuellar MD at [facility] [place] and Med Left: Chest [employer] 01/19/2027 [id number] / / [id number] Advance Directives For more information, please contact: [phone] Documents on File Type Date Recorded 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 Care Teams Dean For Student Affairs Relationship Specialty Start Date End Date Dallin Eubanks MD [address] [address] PCP - General Internal Medicine 09/14/19
== END 2024-10-26 15:09 | disposition home or self-care (01) ==
PROVIDERS: Referring Provider Hospitalist; Visit Provider Internal Medicine Nephrology
DX: I10 Essential (primary) hypertension (principal); N18.31 Chronic kidney disease, stage 3a
CPT/HCPCS: 99204

== ENCOUNTER → 2024-10-26 14:21 | Outpatient (BNVA) | payer MEDICARE, SELFPAY | PROVIDERS: Referring Provider Hospitalist; Visit Provider Internal Medicine Nephrology | DX: I12.9 Hypertensive chronic kidney disease with stage 1 through stage 4 chronic kidney disease, or unspecified chronic kidney disease (principal); N18.31 Chronic kidney disease, stage 3a | CPT/HCPCS: 99202 ==

== ENCOUNTER 2024-12-28 08:14 | Outpatient (AMB) | payer MEDICARE, SELFPAY ==
--- NOTE | 2024-12-28 08:17 | A.OFFVIS_ITS ---
Vital Signs 12/28/24 08:18 Height 5 ft 8 in Weight 167 lb BMI 25.4 BP 139/64 Blood Pressure Location Lt brachial Position Sitting Pulse 66 Pulse Oximetry (%) 100 Oxygen Delivery Method Room Air Intake Visit Reasons: GERD, colo screening Intake Note: Patient new consult for GERD and pre colonoscopy/EGD screening. Patient cc: abdominal discomfort, gassy, between diarrhea and constipation on and off, denies any other GI issues. Postpartum Rn Required: No Accompanied by: Spouse Allergies hydrochlorothiazide Allergy (Verified 12/28/24 08:17) Unknown lisinopril Allergy (Verified 12/28/24 08:17) Unknown verapamil Allergy (Verified 12/28/24 08:17) Unknown adhesives Allergy (Uncoded 10/24/24 14:54) Unknown Medication List - Last Reconciled 12/28/24 by Angela Oshea CNP carvedilol mg PO BID cholecalciferol (vitamin D3) 100 mcg PO DAILY clopidogrel 75 mg PO DAILY dapagliflozin propanediol (Farxiga) 10 mg PO DAILY denosumab (Prolia) 60 mg subcut [id number] furosemide (Lasix) 20 mg PO 3XW 3 months pantoprazole 20 mg PO QAM rivaroxaban (Xarelto) 20 mg PO DAILY rosuvastatin mg PO DAILY spironolactone 25 mg PO DAILY sucralfate 1 g PO TID valsartan (Diovan) mg PO DAILY HPI HPI GERD, colo screening: Details: Patient is a 74-year-old female with PMH of hypertension, hyperlipidemia, osteoporosis, CAD, A-Fib and CKD. She was referred by her PCP for further evaluation of acid reflux. Pt is here today for evaluation of upset stomach and gas. Patient is accompanied by her Brendan. The patient reports the onset of gastrointestinal symptoms in early 2024, which she attributes to the initiation of alendronate therapy. She initially self-medicated with OTC famotidine (Pepc id) without symptom relief. Two weeks after symptom onset, she presented to her PCP and was started on pantoprazole and sucralfate. She reports minimal symptom relief with this regimen and notes difficulty swallowing sucralfate due to pill size. The patient is followed by rheumatology for osteoporosis management. She states that alendronate was discontinued and replaced with a Q6-month injectable bisphosphonate a couple of months ago. She reports some improvement in GI symptoms, though they are still present. She reports bowel movements on most days of the week, with straining required 2?3 times per week. She occasionally experiences loose stools preceded by abdominal cramping. Reports Cologuard testing was completed approximately 4 years ago with negative findings. Associated symptoms: infrequent regurgitation Aggravating factors: wine, Finnish dressing Alleviating attempts: avoiding triggers + as above Patient denies: fever/chills, n/v, appetite changes, pyrosis, dysphasia, uni ntentional wt loss, or melena/hematochezia. She was recently switched from amlodipine to carvedilol due to peripheral edema She was hospitalized at [facility] approximately 6 weeks ago for management of a DVT. During that admission, her anticoagulation regimen was changed from clopidogrel and aspirin to rivaroxaban (Xarelto). She is now established with Hematology for continued management She underwent Watchman procedure April 2024. Reports recent visit with Dr. Omalley, Stock Digger at [facility] and plans for CT scheduled for February 08. Common foods consume: beef, chicken, fish daily vegetables and fruit water, decaf coffee and tea Social hx: 1 glass wine/night denies recreational drug use former smoker, cessation 15 years ago family hx as below PFSH Medical History (Updated 12/28/24 @ 09:40 by Angela Oshea CNP) Dyspepsia Cerebral infarction Atrial fibrillation Pacemaker CAD (coronary artery disease) Hyperlipidemia Hypertension Surgical History (Updated 12/28/24 @ 08:37 by Barbi Torres) History of esophagogastroduodenoscopy (EGD) Hx of colonoscopy H/O heart artery stent H/O wrist surgery History of cataract surgery S/P ablation of atrial fibrillation Family History (Updated 12/28/24 @ 10:51 by Angela Oshea CNP) Brother Cancer Heart disease Hypertension Atrial fibrillation Father Heart disease Sister Stroke Hypertension Social History Alcohol intake: current Comment: Wine- Occasionally Patient Tobacco Use Status: Former Tobacco user Review of Systems Const Reports as per HPI ENT Reports as per HPI Card Reports as per HPI Resp Reports as per HPI GI Reports as per HPI Reports as per HPI Physical Exam Vital Signs: Last Vital Signs Pulse 66 12/28/24 08:18 BP 139/64 12/28/24 08:18 Pulse Ox 100 12/28/24 08:18 Oxygen Delivery Method Room Air 12/28/24 08:18 BMI result Body Mass Index 25.4 Const General: healthy appearing, no acute distress and well developed Nutritional Appearance: well nourished Orientation/consciousness: patient oriented x3 HEENT Head: Yes normal to inspection, Yes normocephalic and Yes atraumatic Face and sinus: Yes normal facial exam Eyes General: appearance normal, both eyes and all related structures Neck Neck: Yes normal visual inspection Resp Effort & Inspection: normal respiratory effort, able to speak in complete sentences, no tracheal deviation and symmetric chest movement Auscultation: clear to auscultation bilaterally Cardio Jugular venous distension: no JVD Rate: regular rate Rhythm: regular rhythm Heart sounds: S1 normal heart sound present, S2 normal heart sound present, no gallops and no murmurs GI Inspection: Yes normal to inspection and No distended Palpation (GI): Soft to palpation, not firm, nontender and No hepatosplenomegaly present Auscultation: normal bowel sounds Neuro General: patient oriented x3 Gait exam (Neuro): Normal gait present Psych Appearance: grossly normal Mental Status: mental status grossly normal Speech and movement: Normal speech and movement present Affect: normal affect Attitude: cooperative Thought process: Normal thought process present Thought content: Normal thought content present Insight: Good insight present (Psych) Judgement: Good judgement present (Psych) Assessment & Plan Assessment & Plan (1) Dyspepsia: Code(s): R10.13 - Epigastric pain Category: Medical Plan: Suspect medication-induced GI symptoms. Will rule out bacterial causes; H. pylori stool antigen testing has been ordered. Will also obtain basic labs to assess for anemia. A prescription for senna has been sent to the patient's preferred pharmacy to assist with bowel regularity. Patient instructed to take pantoprazole twice daily, and simethicone up to four times daily as needed. EGD will be scheduled for further evaluation. She understands that cardiology clearance will be needed prior to the procedure. Lab orders have been mailed to the patient?s home. Jessica was contacted after the visit and informed of these changes; she understands the updated management plan. Reinforced lifestyle modifications to promote regularity: -higher fiber foods as tolerated, handout provided -adequate hydration with water -150 minutes of moderate intensity exercise per week (2) Dyspepsia: Code(s): R10.13 - Epigastric pain Plan Follow-up in 4 weeks or sooner as needed. Time: I spent a total of 60 minutes on the date of encounter which includes: Preparing to see the patient (reviewed previous documentation, test results and medical history) Performing a medically appropriate exam and/or evaluation Ordering medications, tests, and procedures Documenting clinical information in the health record Orders: Orders H pylori Ag Stool Today R10.13 - Epigastric pain IRON PROFILE Today R10.13 - Epigastric pain Complete Blood Count no Diff Today R10.13 - Epigastric pain Comprehensive Met. Panel Today R10.13 - Epigastric pain Medications: New sennosides (senna) 8.6 mg PO DAILY 90 caps 0RF simethicone (Gas Relief (simethicone)) 125 mg PO BID-QID PRN 90 caps 1RF gas Changed From pantoprazole 20 mg PO QAM To pantoprazole 20 mg PO BID 90 tabs 1RF Coding Level of Care Code New Pt New Pt Level 5 (17293) Patient Type New Diagnoses Dyspepsia R10.13
[2024-12-28 08:18] VITALS: BP 139/64; PULSE 66; O2SAT 100; BMI 25.4
--- OUTSIDE RECORDS SUMMARY | 2024-12-28 08:23 | XMS_ITS | Clinical Summary ---
Author Organization [facility] Address [address] [facility] [address] [place] [address] Care Team Providers Care Fleet Assistant Name Role Phone Loyd Moore MD Primary Care Provider [phone] Encounters Date Type Department Care Team Description 11/13/2024 Telephone [facility] [address] [place] [address] Rajesh Dotson MA from Last 3 Months Social History Tobacco Use Types Packs/Day Years Used Date Smoking Tobacco: Never Assessed Comments Unknown Sex and Gender Information Value Date Recorded Sex Assigned at Not on file Legal Sex Female 11:24 AM EDT Gender Identity Not on file Sexual Orientation Not on file Plan of Treatment Health Maintenance Due Date Last Done Comments Pneumococcal Vaccine: 50+ Ye ars (1 of 2 - PCV) 1967 Influenza Vaccine (Season Ended) 2025 Hepatitis B Vaccine Aged Out No longe r eligible based on patient's age to complete this topic Insurance Medicare [facility] Care Teams Fleet Assistant Relationship Specialty Start Date End Date Loyd Moore MD [address] [place] [address], [address] [place] [address] PCP - General Internal Medicine 11/13/24
--- OUTSIDE RECORDS SUMMARY | 2024-12-28 08:23 | XMS_ITS ---
Author Organization [facility] Address [address] [facility] [address] [place] [address] Care Team Providers Care Certified Nurse Name Role Phone ANETTE KIRKLAND Primary Care Provider REASON FOR VISIT Nephrology Referral Encounters Encounter Location Date Provider Diagnosis [facility] [address] [facility] [address] [place] [address] 10/20/2024 ANETTE KIRKLAND Plan Of Treatment Next Appt Details Provider Name:Vi milian, 04/10/2025 09:30:00 AM, [address] [facility] [address], [place], [address], Progress Notes * INDIRA FLORESOB:[birth year] (74 yo F)Acc No.[id number]:10/20/2024 Patient:?MANOJ FLORES :1950???Age:74 Y???Sex:Female Address:[facility] [place] [address] * true * Date:? Generated for Ardeni marcos/Kong/eTransmitting on:?12/28/2024 08:22 AM EDT
--- OUTSIDE RECORDS SUMMARY | 2024-12-28 08:23 | XMS_ITS | Encounter Summary ---
Author Organization [facility] Address [address] [place] [address] Care Team Providers Care Welding Foreman Name Role Phone Loyd Moore MD Primary Care Provider [phone] Reason for Referral * Imaging (Routine) - Closed Specialty Diagnoses / Procedures Referred By Yuval liang Referred To Contact Cardiology Diagnoses Paroxysmal atrial fibrillation (CMS/HCC V24, CMS/HCC V28) Procedures Transesophageal echocardiogram (ANA) with possible cardioversion with PRN contrast MN ECHOCARDIOGRAPHY TRANSESOPHAGEAL REAL-TIME W IMG DOC INCL PROBE PLCMNT MN ECHOCARDIOGRAPHY DOPPLER COLOR FLOW MAPPING MN DOPPLER ECHO COMPLETE MN CARDIOVERSION ELECTIVE ELECTRICAL CONVERSION ARRHYTHMIA EXTERNAL Chito Cuellar MD [address] [address] Phone: tel: fax: [facility] Referral ID Status Reason Start Date Expiration Date Visits Re quested Visits Authorized [id number] Closed 07/03/2024 07/03/2025 1 1 Reason for Visit * Imaging (Routine) - Closed Specialty Diagnoses / Procedures Referred By Yuval liang Referred To Contact Cardiology Diagnoses Paroxysmal atrial fibrillation (CMS/HCC V24, CMS/HCC V28) Procedures Transesophageal echocardiogram (ANA) with possible cardioversion with PRN contrast MN ECHOCARDIOGRAPHY TRANSESOPHAGEAL REAL-TIME W IMG DOC INCL PROBE PLCMNT MN ECHOCARDIOGRAPHY DOPPLER COLOR FLOW MAPPING MN DOPPLER ECHO COMPLETE MN CARDIOVERSION ELECTIVE ELECTRICAL CONVERSION ARRHYTHMIA EXTERNAL Chito Cuellar MD [address] [address] Phone: tel: fax: [facility] Referral ID Status Reason Start Date Expiration Date Visits Re quested Visits Authorized [id number] Closed 07/03/2024 07/03/2025 1 1 Encounter Details Date Type Department Care Team (Latest Contact Info) Description 07/10/2024 12:30 PM EST Hospital Encounter [facility] Cardiac Career Development Specialist [address] [place] [id number] Alecia Pastor MD [address] [place] [address] Paroxysmal atrial fibrillation (CMS/HCC V24, CMS/HCC V28) [...] measurements will be made. Please see official AAN report for further details. See full echo [...] Jeronimo RN - 07/10/2024 11:48 AM EST Candida gonzalez is , Brendan. [phone] documented in this encounter Plan of Treatment Upcoming Encounters Date Type Department Care Team (Late st Contact Info) Description 12/10/2025 8:30 AM EDT Ancillary Procedure [facility] [address] [place] [address] documented as of this encounter Procedures Procedure [...] workstation. The probe was inserted by the methods analyst. There was no probe insertion difficulty. by anesthesia. The patient had no complications. Estimated blood loss: no blood loss. No specimens were collected. Clinical Background Post Watchman device evaluation. us Chito Cuellar MD CV ECHO PROCEDURES Final Resul t documented in this encounter Visit Diagnoses Diagnosis Presence of Watchman left atrial appendage closure device- Primary Paroxysmal atrial fibrillation (CMS/HCC V24, CMS/HCC V28) Atrial fibrillation Encounter for adjustment or management of cardiac device documented in this encounter Admitting Diagnoses Diagnosis Presence of Watchman left atrial appendage closure device documented in this encounter Orders Admission Count Last Ordered Date First Orde red Date INITIATE OBSERVATION STATUS 1 07/10/2024 documented in this encounter Care Teams Welding Foreman Relationship Specialty Start Date End Date Loyd Moore MD [address] [place] [address] PCP - General 12/07/23 documented as of this encounter
--- OUTSIDE RECORDS SUMMARY | 2024-12-28 08:23 | XMS_ITS | Clinical Summary ---
Author Organization [facility] Address [address] [place] [address] Care Team Providers Care Jitterbug Operator Name Role Phone Dallin Eubanks MD Primary Care Provider [phone] Allergies Active Allergy Reactions Criticality Noted Date [...] this topic Medical Devices Implanted Type Area Car Driver Device Identifier Shelf Expiration Date Model / Serial / Lot Device Clsur Watchman Flx Pro Aurea 35mm Bsci-Prnt [id number] - [id number] Implanted:Qty: 1 on 05/11/2024 by Chito Cuellar MD at [facility] and Med Left: Chest [employer] 01/19/2027 [id number] / / [id number] Advance Directives For more information, please contact: [phone] Documents on File Type Date 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 Care Teams Jitterbug Operator Relationship Specialty Start Date End Date Dallin Eubanks MD [address] [address] PCP - General Internal Medicine 09/14/19
--- OUTSIDE RECORDS SUMMARY | 2024-12-28 08:23 | XMS_ITS | Clinical Summary ---
Author Organization [address] [place] [address] [place] [phone] Phone Care Team Providers Care Nonfarm Animal Caretaker Name Role Phone Loyd Moore MD Primary Care Provider [phone] Allergies Active Allergy Reactions Criticality Noted Date [...] mouth 1 (one) time each day. Active furosemide (LASIX) 20 mg tablet Take 1 tablet (20 mg total) by mouth 1 (one) time each day. Active carvediloL (COREG) 6.25 mg tablet Take 1 tablet (6.25 mg total) by mouth 2 (two) times a day with meals. Active spironolactone (ALDACTONE) 25 mg tablet Take 1 tablet (25 mg total) by mouth 1 (one) time each day. Active denosumab (Prolia) 60 mg/mL syringe syringe Inject 1 mL (60 mg total) under the skin every 6 (six) months. Active pantoprazole (PROTONIX) 20 mg EC tablet Take 1 tablet (20 mg total) by mouth 1 (one) time each day before breakfast. Do not crush, chew, or split. Active dapagliflozin propanediol (Farxiga) 10 mg tablet Take 1 tablet (10 mg total) by mouth 1 (one) time each day. Active sucralfate (CARAFATE) 1 gram tablet Take by mouth 2 (two) times a day. Active rivaroxaban (Xarelto DVT-PE Treat 30d Start) starter pack Take by mouth. Take 1 tablet (15 mg) by mouth 2 (two) times a day with meals for 21 days. Then take 1 tablet (20 mg) by mouth 1 (one) time each day with dinner. Active Active Problems Problem Noted Date Diagnosed Date CHF (congestive heart failure) ([facility] V24, [facility] V28) 11/23/2024 DVT (deep venous thrombosis) ([facility] V24, [facility] V28) 11/23/2024 Permanent atrial fibrillation ([facility] V24, [facility] V28) 07/20/2024 PAH (pulmonary artery hypert ension) ([facility] V24, [facility] V28) 07/20/2024 Nonrheumatic tricuspid valve regurgitation 07/20 Nonrheumatic [...] lipid control. Nonrheumatic aortic valve regurgitation 06/13/20 Chronic venous insufficiency 06/13/2024 Occlusion of middle [...] Encounters Date Type Department Care Team Description 12/13/2024 Telephone [facility] [address] [place] [address] Rita Valdez NP Appointment (Coronary CTA) 12/07/2024 8:30 AM EDT Ancillary Procedure [facility] - [address] [place] [address] Encounter for adjustment or management of cardiac device 12/04/2024 Telephone [facility] - [address] [place] [address] Rita Valdez NP Appointment 12/01/2024 4:30 PM EDT Ancillary Procedure [facility] - [address] [place] [address] 11/29/2024 12:30 PM EDT Ancillary Procedure [facility] - [address] [place] [phone] HFrEF (heart failure with reduced ejection fraction) (CMS/HCC V24, CMS/HCC V28) 11/28/2024 2:40 PM EDT Office Visit [facility] - [address] [place] [phone] Rita Valdez NP Permanent atrial fibrillation (CMS/HCC V24, CMS/HCC V28) (Primary Dx); HFrEF (heart failure with reduced ejection fraction) (CMS/HCC V24, CMS/HCC V28) 11/27/2024 Telephone [facility] [address] [place] [address] Leti Becker RN 6 month s/p watchman procedure f/u call 10/31/2024 Telephone [facility] - [address] [place] [address] Chito Cuellar MD from Last 3 Months Immunizations Name Administration Dates Next Due Pfizer (ages 12 & older) VILLA S-CoV-2 COVID-19, mRNA, LNP-S, katie-sucrose, preservative free 01/15/2022 Pfizer SARS-CoV-2 COVID-19, mRNA, LNP-S, preservative free 06/19/2021,11/25/2020,11/03/2020 Surgical History Surgery Date Site/Laterality Comments CARDIAC CATH PROCEDURE Medical History Medical History Date Comments CKD (chronic kidney disease) Aphasia Family History Medical History Relation Name Comments Stroke Sister refractory to X arelto Relation Name Status Comments Sister Social History Tobacco Use Types Packs/Day Years [...] Sign Reading Time Taken Comments Blood Pressure 110/58 11/29/2024 1:14 PM EDT Pulse 71 11/28/2024 2:43 PM EDT Temperature 36.6 ??C (97.8 ??F) 07/10/2024 11:[address] Respiratory Rate 18 07/10/2024 11:55 AM EST Oxygen Saturation 98% 07/20/2024 3:16 PM EST Inhaled Oxygen Concentration - - Weight 77.1 kg (170 lb) 11/29/2024 1:14 PM EDT Height 172.7 cm (5' 8 ) 11/29/2024 1:14 PM EDT Body Mass Index 25.85 11/29/2024 1:14 PM EDT Plan of Treatment Upcoming Encounters Date Type Department Care Team (Late st Contact Info) Description 12/10/2025 8:30 AM EDT Ancillary Procedure [facility] - [address] [facility] [address] [place] [address] Health Maintenance Due Date Last Done Comments Pneumococcal Vaccine: 50+ Years (1 of 2 - PCV) 1969 Depression Screening 08/06/2022 Falls Risk Assessment 08/06/2022 Hepatitis C Screening 08/06/2022 Osteoporosis Screening (Bone Density Screening) 08/06/2022 Social Influencers of Health Screening 08/06/2022 RSV Immunization Adult Patients (1 - 1-dose 75+ series) 2023 Medicare Annual Wellness Visit 10/15/2023 10/15/2022 COVID-19 Vaccine ( season) 2024 01/15/2022, 06/19/2021, 11/25/2020, Additional history exists Influenza Vaccine (Season Ended) 2025 05/16/2024, 05/11/2023, 05/25/2022, Additional history exists Hypertension/CHF/CAD Annual BMP Blood Test 10/06/2025 10/06/2024, 05/02/2024, 05/02/2024 Cholesterol Screening (Lipid Panel) 10/06/2029 10/06/2024 DTaP,Tdap,and Td Vaccines (2 - Td or Tdap) 05/23/2032 05/23/2022 Zoster Vaccines Completed 04/10/2024, 06/0 01/2024, 07/09/2014 HIB Vaccines Aged Out No longer [...] age to complete this topic Meningococcal B Vaccine Aged Out No l onger eligible based on patient's age to complete this topic RSV Immunization Patients Under 20 months Aged Out No longer eligible based on patient's age to complete this topic Varicella Vaccines Aged Out No longer eligible based on patient's age to complete this topic Medical Devices Implanted Type Area Continuous Miner Device Identifier Shelf Expiration Date Model / Serial / Lot Medt-Card [id number] Implanted:03/2020 (Quantity not on file) Cardiac Pacemaker [employer] - CARDIAC RHYTH-CRDM [id number] / [id number] / Medt-Card Micra Vr Tcp [id number] Implanted:03/2020 (Quantity not on file) Cardiac Pacemaker [employer] - CARDIAC RHYTH-CRDM MICRA VR TCP / [id number] / Device Clsur Watchman Flx Pro Aurea 35mm Bsci-Prnt [id number] Implanted:Qty : 1 on 05/11/2024 by Chito Cuellar MD Left: Chest Audiotoniq BRANDEN 01/19/2027 [id number] / / [id number] Procedures Procedure Name Priority Date/Time Associated Diagnosis Comments CARDIAC DEVICE CHECK- IN CLINIC- [facility] Routine 12/07/2024 9:04 AM EDT Encounter for adjustment or management of cardiac device CARDIAC DEVICE CHECK- REMOTE- [facility]URJ Routine 12/01/2024 4:27 PM EDT TRANSTHORACIC ECHOCARDIOGRAM (TTE) COMPLETE Routine 11/29/2024 1:15 PM EDT HFrEF (heart failure with reduced ejection fraction) (CMS/HCC V24, CMS/HCC V28) ECG 12-LEAD Routine 11/28/2024 2:37 PM EDT Permanent atrial fibrillation (CMS/HCC V24, CMS/HCC V28) EXTERNAL CLINICAL LAB Routine 10/31/2024 1:09 PM EST MICROALBUMIN CREATININE URINE RATIO Routine 10/06/2024 12:40 PM EST Essential hypertension, malignant COMPREHENSIVE METABOLIC PANEL Routine 10/06/2024 9:27 AM EST Essential hypertension, malignant LIPID PANEL WITH REFLEX TO DIRECT LDL Routine 10/06/2024 9:27 AM EST Essential hypertension, malignant from Last 3 Months Results * CARDIAC DEVICE CHECK- IN CLINIC- [facility] (12/07/2024 9:04 AM EDT) Date Time Interrogation Session [id number] CV DEVICE CHECK Implantable Pulse Generator Continuous Miner MDT CV DEVICE CHECK Implantable Pulse Generator Type IPG CV DEVICE CHECK Implantable Pulse Generator Model Micra VR TCP CV DEVICE CHECK Implantable Pulse Generator Serial Number [id number] CV DEVICE CHECK Implantable Pulse Generator Implant Date 20200105 CV DEVICE CHECK Battery Voltage 2.980 CV D EVICE CHECK Battery Status Unknown CV DE VICE CHECK Lead Channel Setting Sensing Sensitivity 2.00 CV DEVICE CHECK Lead Channel Impedance Value 540 CV DEVICE CHECK Lead Channel Pacing Threshold Amplitude 0.500 CV DEVICE CHECK Lead Channel Pacing Threshold Pulse Width 0.2 CV DEVICE CHECK Lead Channel RV Pacing Threshold Date 2024-12-07 CV DEVICE CHECK Lead Channel Setting Pacing Amplitude 1.000 CV DEVICE CHECK Lead Channel Setting Pacing Pulse Width 0.2 CV DEVICE CHECK Nish Setting Mode (NBG Code) VVIR CV DEVICE CHECK Nish Setting Lower Rate Limit 60 CV DEVICE CHECK Nish Setting Maximum Sensor Rate 120 CV DEVICE CHECK Date of Service 2024-12-07 CV DEVICE CHECK Anatomical Region Laterality Modality Device Interroga tion 12/07/2024 Impressions 12/12/2024 10:44 AM EDT Normal In-Office: No Events * Normal Device Function * Alerts or events: None * Battery: SEE PDF, >8.0 years ?(>7.0 - >9.0 years) * Sensing, impedance and thresholds reviewed and tested * Presenting Rhythm: SENIOR ORACLE DATABASE DEVELOPER 70s * No R waves @ VVI 30 bpm today * Heart Rate Histograms reviewed * Pacing and Detection Parameters were evaluated Narrative Procedure Note Chito Cuellar MD - 12/12/2024 IMPRESSION: Normal In-Office: No Events * Normal Device Function * Alerts or events: None * Battery: SEE PDF, >8.0 years (>7.0 - >9.0 years) * Sensing, impedance and thresholds reviewed and tested * Presenting Rhythm: SENIOR ORACLE DATABASE DEVELOPER 70s * No R waves @ VVI 30 bpm today * Heart Rate Histograms reviewed * Pacing and Detection Parameters were evaluated us Order Referral Cardiovascular CV IMPLANTABLE CAR DIAC DEVICE PROCEDURES Final Result * Cardiac device check - Remote- [facility]UR[facility] (12/01/2024 4:27 PM EDT) Date Time Interrogation Session [id number] CV DEVICE CHECK Type Interrogation Session Remote CV DEVICE CHECK Implantable Pulse Generator Continuous Miner MDT CV DEVICE CHECK Implantable Pulse Generator Type IPG CV DEVICE CHECK Implantable Pulse Generator Model [id number] CV DEVICE CHECK Implantable Pulse Generator Serial Number [id number] CV DEVICE CHECK Implantable Pulse Generator Implant Date 20200105 CV DEVICE CHECK Battery Remaining Longevity 96.0 CV DEVICE CHECK Battery Voltage 2.990 CV D EVICE CHECK Battery SAP SOLUTION MANAGER CONSULTANT Trigger 2.558 CV DEVICE CHECK Battery Status Middle of Service CV DEVICE CHECK Nish Statistic RV Percent Paced 99.99 CV DEVICE CHECK Lead Channel Sensing Intrinsic Amplitude 11.025 CV DEVICE CHECK Lead Channel Setting Sensing Sensitivity 2.00 CV DEVICE CHECK Lead Channel Impedance Value 500 CV DEVICE CHECK Lead Channel Pacing Threshold Amplitude 0.500 CV DEVICE CHECK Lead Channel Pacing Threshold Pulse Width 0.2 CV DEVICE CHECK Lead Channel RV Pacing Threshold Date 2024-06-06 CV DEVICE CHECK Lead Channel Setting Pacing Amplitude 1.000 CV DEVICE CHECK Lead Channel Setting Pacing Pulse Width 0.2 CV DEVICE CHECK Nish Setting Mode (NBG Code) VVIR CV DEVICE CHECK Nish Setting Lower Rate Limit 60 CV DEVICE CHECK Nish Setting Maximum Sensor Rate 120 CV DEVICE CHECK Date of Service 2024-06-16 CV DEVICE CHECK Anatomical Region Laterality Modality Device Interroga tion 06/06/2024 9:24 AM EDT Impressions 06/16/2024 1:00 PM EDT Normal Remote: No Events ?? Narrative Procedure Note Chito Cuellar MD - 12/01/2024 IMPRESSION: Normal Remote: No Events us Chito Cuellar MD CV IMPLANTABLE CARDIAC DEVICE PROCEDURES Final Result * (ABNORMAL) TRANSTHORACIC ECHOCARDIOGRAM (TTE) COMPLETE (11/29/2024 1:15 PM EDT) LV EDV (A2C) 74 mL CV PACS LV EDV (A4C) 70 mL CV PACS LV Diastolic Volume (BP) 74 46 - 106 mL CV PACS LV ESV (A2C) 38 mL CV PACS LV ESV (A4C) 35 mL CV PACS LV Systolic Volume (BP) 38 14 - 42 mL CV PACS IVSD 1.0(A) 0.6 - 0.9 cm CV PACS LVIDD 5.3(A) 3.8 - 5.2 cm CV PACS LVIDS 3.6(A) 2.2 - 3.5 cm CV PACS LVOT Diameter 2.1 cm CV PACS LVOT Mean Darius 0.8 m/s CV PACS LVOT Mean Grad 3 mmHg CV PACS LVOT Peak VTI 23.2 cm CV PACS LVOT Peak Darius 1.1 m/s CV PACS LVOT Peak Gradient 5 mmHg CV PACS LVPWD 1.0(A) 0.6 - 0.9 cm CV PACS Ejection Fraction (A2C) 49 % CV PACS Ejection Fraction (A4C) 51 % CV PACS Ejection Fraction (BP) 49 % CV PACS LVOT Area 3.5 cm2 CV PACS LVOT Stroke Volume 80 mL CV PACS Left Atrium Minor Euclid 7.2 cm CV PACS Left Atrium Major Euclid 6.8 cm CV PACS LA Area Sys (A2C) 30 cm2 CV PACS LA Area Sys (A4C) 32 cm2 CV PACS LA Volume (BP) 117 mL CV PACS RA Area 28.5 cm2 CV PACS RA 2D Volume 101 mL CV PACS AV Regurgitation PHT 520 ms CV PACS AR Max Velocity 4.7 m/s CV PACS Aortic Sinus Valsalva 3.5 cm CV PACS Ascending Aorta 4.0 cm CV PACS PV Acceleration Time 116 ms CV PACS RV Diastolic Basal Dimension 3.4 2.5 - 4.1 cm CV PACS TAPSE 24 mm CV PACS TR Peak Velocity 2.57 m/s CV PACS TR Peak Gradient 26 mmHg CV PACS Relative Wall Thickness ratio 0.38 CV PACS FS 32 % CV PACS LV Mass 2D 200 g CV PACS LVOT flow 277 mL/s CV PACS BSA 1.92 m2 CV PACS LV Diastolic Volume Index (BP) 39 29 - 61 mL/m2 CV PACS LV Systolic Volume Index (BP) 20 8 - 24 mL/m2 CV PACS LV EDV Index (A4C) 37 mL/m2 CV PACS LV ESV Index (A4C) 18 mL/m2 CV PACS LV EDV Index (A2C) 39 mL/m2 CV PACS LV ESV Index (A2C) 20 mL/m2 CV PACS LA Volume Index (BP) 61 mL/m2 CV PACS LVIDD Index 2.77 cm/m2 CV PACS LVIDS Index 1.88 cm/m2 CV PACS LV Mass Index 2D 105(A) 44 - 88 g/m2 CV PACS LVOT Stroke Index 42 mL/m2 CV PACS RA 2D Volume Index 53(A) 15 - 27 mL/m2 CV PACS Ascending Aorta Index 2.09 cm/m2 CV PACS Anatomical Region Laterality Modality Ultrasound Narrative 12/01/2024 3:07 PM EDT ?Left ventricle cavity is mildly dilated. There is mild hypertrophy. Systolic function is mildly decreased with an ejection fraction of 45-50%. Global LV hypokinesis is present. ?Right ventricle cavity is normal. Right ventricular systolic function is normal. ?Left atrium cavity is severely dilated. ?Right atrium cavity is severely dilated. ?Aortic valve demonstrates moderate regurgitation. ?There is mild to moderate tricuspid regurgitation. Right ventricular systolic pressure 26 mmHg plus right atrial pressure. ?The ascending aorta is dilated (4.0 cm). ?There are no significant changes compared to previous study of 06/07/2024. Left Ventricle Left ventricle cavity is mildly dilated. There is mild hypertrophy. Systolic function is mildly decreased with an ejection fraction of 45-50%. Global LV hypokinesis is present. Unable to assess diastolic function. Right Ventricle Right ventricle cavity appears normal. Systolic function is normal. Normal TAPSE (> 17 mm). A Micra leadless pacemaker is implanted in the right ventricle. A pacer wire is present in the right ventricle. Left Atrium Left atrium cavity is severely dilated. Right Atrium Right atrium cavity is severely dilated. IVC/SVC Inferior vena cava was not well visualized. Mitral Valve The leaflets exhibit normal excursion. There is mild annular calcification. There is trace regurgitation. There is no evidence of mitral valve stenosis. Tricuspid Valve The leaflets exhibit normal excursion. There is mild to moderate regurgitation. There is no evidence of tricuspid valve stenosis. Right ventricular systolic pressure 26 mmHg plus right atrial pressure. Aortic Valve The aortic valve is trileaflet. There is moderate regurgitation. There is no evidence of aortic valve stenosis. Pulmonic Valve The pulmonic valve was not well visualized. No significant pulmonic valve regurgitation. No significant pulmonary valve stenosis noted. Ascending Aorta The ascending aorta is 4.0 cm. Study Details Overall the study quality was adequate. Rita Valdez NP CV ECHO PROCEDURES Final Res ult * ECG 12 lead (11/28/2024 2:37 PM EDT) Ventricular Rate ECG 71 BPM GEMUSE Atrial Rate 468 BPM GEMUSE QRS Duration 170 ms GEMUSE Q-T Interval 436 ms GEMUSE QTc 473 ms GEMUSE R Euclid -56 degrees GEMUSE T Euclid 114 degrees GEMUSE ECG Interpretation Ventricular- paced rhythm When compared with ECG of 03-JUL-2024 09:51, Vent. rate has increased BY ?? 8 BPM Confirmed by CHEYENNE SHARP ([id number]) on 12/17/2024 3:06:58 PM GEMUSE 11/28/2024 2:37 PM EDT 12/17/2024 3:06 PM EDT Rita Valdez MOSS PICKER ECG ORDERABLES Final Result GEMUSE * External clinical lab (10/31/2024 1:09 PM EST) Historical Provider MD LAB BLOOD ORDERABLES Reba l Result * (ABNORMAL) Microalbumin creatinine urine ratio (10/06/2024 12:40 PM EST) Creatinine, Urine 129.0 mg/dL LAB CHEMISTRY METHOD 10/06/2024 3:52 PM EST [facility] Microalb, Ur 474.0(H) 0.0 - 29.0 mg/L LAB CHEMISTRY METHOD 10/06/2024 3:52 PM EST [facility] Microalb/Crea t Ratio 367(H) <30 mg/g creat LAB CHEMISTRY METHOD 10/06/2024 3:52 PM EST [facility] Urine Urine specimen obtained by clean catch procedure / Unknown Non-blood Collection / Unknown 10/06/2024 12:40 PM EST 10/06/2024 12:40 PM EST Vi Ornelas PA LAB URINE ORDERABLES Final Result Performing Organization Address City/[facility]/ZIP Co de Phone Number [facility] [address] [place] [address], * Lipid panel with reflex to direct LDL (10/06/2024 9:27 AM EST) Cholesterol 134 0 - 200 mg/dL LAB CHEMISTRY METHOD 10/06/2024 12:57 PM EST [facility] Triglycerides 49 0 - 150 mg/dL LAB CHEMISTRY METHOD 10/06/2024 12:57 PM EST [facility] HDL 83 >=40 mg/dL LAB CHEMISTRY METHOD 10/06/2024 12:57 PM EST [facility] LDL Calculated 41 0 - 100 mg/dL LAB CHEMISTRY METHOD 10/06/2024 12:57 PM [facility] VLDL Cholesterol Huey 9.8 mg/dL LAB CHEMISTRY METHOD 10/06/2024 12:57 PM [facility] Non HDL Chol. (LDL+VLDL) 51 <145 mg/dL LAB CHEMISTRY METHOD 10/06/2024 12:57 PM [facility] Chol/HDL Ratio 1.6 0.0 - 4.4 LAB CHEMISTRY METHOD 10/06/2024 12:57 PM [facility] Blood Venous blood specimen / Unknown Venipuncture / Unknown 10/06/2024 9:27 AM EST 10/06/2024 9:27 AM EST Vi TAVAREZ LAB BLOOD ORDERABLES Final Result [facility] [address] [place] [address], * (ABNORMAL) Comprehensive metabolic panel (10/06/2024 9:27 AM EST) Sodium 140 133 - 145 mmol/L LAB CHEMISTRY METHOD 10/06/2024 12:54 PM [facility] Potassium 4.3 3.5 - 5.5 mmol/L LAB CHEMISTRY METHOD 10/06/2024 12:54 PM [facility] Chloride 109 96 - 110 mmol/L LAB CHEMISTRY METHOD 10/06/2024 12:54 PM [facility] CO2 24 21 - 32 mmol/L LAB CHEMISTRY METHOD 10/06/2024 12:54 PM [facility] Anion Gap 7 3 - 11 LAB CHEMISTRY METHOD 10/06/2024 12:54 PM [facility] Glucose 92 70 - 100 mg/dL LAB CHEMISTRY METHOD 10/06/2024 12:54 PM [facility] BUN 27(H) 5 - 25 mg/dL LAB CHEMISTRY METHOD 10/06/2024 12:54 PM [facility] Creatinine 1.11(H) 0.50 - 1.10 mg/dL LAB CHEMISTRY METHOD 10/06/2024 12:54 PM [facility] eGFR 52(L) >=60 mL/min/1. 73m2 LAB CHEMISTRY METHOD 10/06/2024 12:54 PM [facility] Comment:Calculation based on the??Chronic Kidney Disease Epidemiology Collaboration (CKD-EPI) equation refit??without adjustment for race. BUN/Creatinine Ratio 24.3 LAB CHEMISTRY METHOD 10/06/2024 12:54 PM [facility] Calcium 9.1 8.5 - 10.5 mg/dL LAB CHEMISTRY METHOD 10/06/2024 12:54 PM [facility] AST (SGOT) 21 10 - 42 unit/L LAB CHEMISTRY METHOD 10/06/2024 12:54 PM [facility] ALT (SGPT) 17 10 - 60 unit/L LAB CHEMISTRY METHOD 10/06/2024 12:54 PM [facility] Alkaline Phosphatase 76 42 - 121 unit/L LAB CHEMISTRY METHOD 10/06/2024 12:54 PM [facility] Total Protein 6.8 6.0 - 8.0 g/dL LAB CHEMISTRY METHOD 10/06/2024 12:54 PM [facility] Albumin 3.9 3.2 - 5.0 g/dL LAB CHEMISTRY METHOD 10/06/2024 12:54 PM [facility] Total Bilirubin 0.7 0.0 - 1.4 mg/dL LAB CHEMISTRY METHOD 10/06/2024 12:54 PM [facility] Blood Venous blood specimen / Unknown Venipuncture / Unknown 10/06/2024 9:27 AM EST 10/06/2024 9:27 AM EST Vi TAVAREZ LAB BLOOD ORDERABLES Final Result [facility] [address] [place] [address], from Last 3 Months Insurance MEDICARE [facility] Advance Directives Documents on File Type Date Recorded Patient Senior Business Manager Expl anation Health Care Decision (hx) 05/11/2024 ADVANCE DIRECTIVE AN D LIVING WILL Health Care Decision (hx) 02/14/2024 ADVANCE DIRECTIVE Health Care Decision (hx) 02/14/2024 ADVANCE DIRECTIVE Care Teams Nonfarm Animal Caretaker Relationship Specialty Start Date End Date Loyd Moore MD [address] [place] [id number] PCP - General 12/07/23
--- OUTSIDE RECORDS SUMMARY | 2024-12-28 08:24 | XMS_ITS | Patient Health Record ---
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 have a right lower extremity DVT and was seen by hematology started on Xarelto. She is currently taking 20 mg twice a day and then will switch to 20mg daily Chronic kidney disease stage IIIa. She has been following with Dr. Lucas for further evaluation and she [...] controlled. Hyperlipidemia. Continue Crestor 40 mg daily plan was discussed in detail with patient and her Plan Of Treatment Pending Test Test Name Order Date Bone Density 10/11/2023 Albumin/Creatinine Ratio,Urine-[id number] Lipid Panel-[id number] 10/05/2024 Comp. Metabolic Panel [id number] 2024 Future Test Test Name Order Date Bone Density 09/20/2023 Next Appt Details Provider Name:Vi Ramosester milian, 04/10/2025 09:30:00 AM, [address] [place] [address], [phone], Insurance Providers Payer Name Payer Address Payer Phone Subscriber Number Group Number Insured Name Patient Relationship to Insured Coverage Start Date Coverage End Date Medicare [address] [place] [phone] [id number] MANOJ FLORES Self - patient is the insured 3 [facility] [address] [place] [address] [phone] [id number] MANOJ FLORES Self - patient is the insured Medical (General) History Medical History History ICD Code hypertension hyperlipidemia CAD and s/p Cardiac arrest in 2009 s/p Pacemaker for SSS Atrial Fib AND S/P ABLATION 3 Times cerebral infarction middle cerebral rajiv ry Surgical History Surgery Date(Month/Year) bilateral cataract surgery s/p pacemaker right wrist fracture 2022
--- OUTSIDE RECORDS SUMMARY | 2024-12-28 08:24 | XMS_ITS ---
Author Organization [facility] Address [address] [place] [address] Care Team Providers Care Credit Collection Specialist Name Role Phone ISAEL ANETTE Primary Care Provider [phone] Allergies Allergen (clinical drug ingredient) Drug/Non Drug [...] se, stage 3 unspecified (N18.30) Referral Organization [facility] Referring Provider First Name ANETTE Referring Provider Last Name MIKHAILCem Referring Provider Speciality Internal M edicine Referred Provider Specialty Nephrology General Notes Referral faxed to [facility]. Please call patient to schedule.Malini Christy [...] Status Risk Notes Problem Peripheral venous insufficiency (96502950) Venous insufficiency (chronic) (peripheral) (I87.2) Active confirmed Vital Signs Temperature 95.6 degrees Fahrenheit 10/11/19 25 Oximetry 97 % 10/11/2024 Heart Rate 63 /min 10/11/2024 Blood pressure systolic 130 mm Hg 10/11/19 25 Blood pressure diastolic 80 mm Hg 025 Weight 179.4 lbs 10/11/2024 BMI 27.27 kg/m2 10/11/2024 Height 5'8 in 10/11/2024 Encounters Encounter Location Date Provider Diagnosis [facility] [address] [phone] 10/11/2024 ANETTE KIRKLAND Venous insufficiency (chronic) (peripheral) [...] 3; follows up with Dr Alvarado at [facility] Cardiology, hypertension and hyperlipidemia is here [...] 3; follows up with Dr Alvarado at [facility] Cardiology, hypertension and hyperlipidemia is here [...] 3; follows up with Dr Alvarado at [facility] Cardiology, hypertension and hyperlipidemia is here [...] 3; follows up with Dr Alvarado at [facility] Cardiology, hypertension and hyperlipidemia is here [...] 3; follows up with Dr Alvarado at [facility] Cardiology, hypertension and hyperlipidemia is here [...] Provider Name:Vi milian, 04/10/2025 09:30:00 AM, [address], [place], [phone], Progress Notes * INDIRA FLORESOB:[birth year] (74 yo F)Acc No.[id number]:10/11/2024 Progress Notes Patient:MANOJ CRUMP Provider:?ANETTE KIRKLAND MD :1950???Age:74 Y???Sex:Female D ate:10/11/2024 Address:[address] [place] [address] Subjective: * Chief Complaints: * ???1 week follow up * HPI: ???Internal Medicine:?Mrs Flores is a 74-year-old lady with CAD; s/p cardiac arrest in 2009, status post pacemaker for sick sinus rhythm, atrial fibrillation s/p ablation x 3; follows up with Dr Alvarado at [facility] Cardiology, hypertension and hyperlipidemia here for Acid [...] and lower extremities, sensory exam intact.?FEMALE GENITOURINARY:?__.?MALE GENITOURINARY:?__.?PODIATRIC:?Normal.?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 .? Assessment: * Assessment: 1.?Essential (primary) hyper tension - I10 (Primary)???2.?Venous insufficiency (chronic) (peripheral) - I87.2???3.?Mixed hyperlipidemia - E78.2???4.?Unspecified atrial fibrillation - I48.91???5.?Gastro-esophageal reflux disease without esophagitis - K21.9??? Mrs Flores is a 74-year-ol d lady with CAD; s/p cardiac arrest in 2009, status post pacemaker for sick sinus rhythm, atrial fibrillation s/p ablation x 3; follows up with Dr Alvarado at [facility] Cardiology, hypertension and hyperlipidemia is here [...] * Provider:?ANETTE KIRKLAND MD Date:?10/11 Generated for Ardenfemi rodríguez/Kong/eTransmitting on:?12/28/2024 08:23 AM EDT History and Physical Notes * HPI (History of Present Illness) Category Sub-Category Detail Notes Category Not es Internal Medicine Mrs Flores is a 74-year-old lady with CAD; s/p cardiac arrest in 2009, status post pacemaker for sick sinus rhythm, atrial fibrillation s/p ablation x 3; follows up with Dr Alvarado at [facility] Cardiology, hypertension and hyperlipidemia here for Acid [...] Normal Psychiatry Normal OROPHARYNX Normal SINUSES Normal 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
--- OUTSIDE RECORDS SUMMARY | 2024-12-28 08:24 | XMS_ITS ---
Author Organization [employer] Address [address] [place] [address] Care Team Providers Care Director Global Development Name Role Phone ANETTE KIRKLAND Primary Care Provider Eloise Zapata Unavailable [phone] Allergies Allergen (clinical drug ingredient) Drug/Non Drug Allergy documented on EMR Reaction Allergy Type Onset Date Status adhesives (uncoded) Unknown Allergy Active hydrochlorothiazide hydroCHLOROthiazide Unknown D rug Allergy Active Lisinopril Unknown Drug Allergy Active verapamil Verapamil HCl Unknown Drug Allergy Active amlodipine Amlodipine Dependent edema Drug Allergy 10/05/19 25 Active REASON FOR VISIT [facility]; Notes Scanned Medications Medication SIG (Take, Route, Frequency, Duration) Notes Start Date End Date Status Lasix 20 MG 1 tablet Orally Once a day for 30 days 11/07/2024 Active Carvedilol 6.25 MG 1 tablet with food Orally Twice a day for 90 days Active Rivaroxaban 20 MG 1 tablet with food Orally Once a day for 30 days 11/08/2024 Active Rosuvastatin Calcium 40 MG 1 tablet Orally Once a day Active Pantoprazole Sodium 20 MG TAKE 1 TABLET BY MOUTH DAILY 0.5 TO 1 HOUR BEFORE BREAKFAST for 90 Active Rivaroxaban 15 MG 1 tablet with food Orally Once a day for 30 days this was discontinued 11/07/2024 Active Clopidogrel Bisulfate 75 MG 1 tablet Orally Once a day Active Vitamin D 25 MCG (1000 UT) 1 tablet Orally Once a day Active Aspir-81 Active Diovan 320 MG 1 tablet Orally Once a day Active Sucralfate 1 GM 1 tablet on an empty stomach Orally Twice a day for 30 days 10/05/2024 Active Farxiga 10 MG 1 tablet Orally Once a day for 30 days 11/07/2024 Active Xarelto Starter Pack 15 & 20 MG as directed Orally Active Problems Problem Type SNOMED Code ICD Code Onset Dates Problem Status W/U Status Risk Notes Problem Heart failure (55077097) Heart failure, unspecified (I50.9) Active confirmed Vital Signs Temperature 96.5 degrees Fahrenheit 11/08/19 25 Oximetry 99 % 11/07/2024 Heart Rate 68 /min 11/07/2024 Blood pressure systolic 120 mm Hg 11/08/19 25 Blood pressure diastolic 78 mm Hg 025 Weight 170.5 lbs 11/07/2024 BMI 25.92 kg/m2 11/07/2024 Height 5'8 in 11/07/2024 Encounters Encounter Location Date Provider Diagnosis [facility] [address] [address] 11/07/2024 Eloise Zapata Essential (primary) hypertension I10 ; Hospital discharge follow-up Z09 ; Venous insufficiency (chronic) (peripheral) I87.2 ; Mixed hyperlipidemia E78.2 ; Gastro-esophageal reflux disease without esophagitis K21.9 and Heart failure, unspecified I50.9 Assessments Encounter Date Diagnosis (ICD Code) Assessment Notes Treatment Notes Treatment Clinical Notes Section Notes 11/07/2024 Essential (primary) hypertension (ICD-10 - I10) Mrs Flores is a 74-year-old lady with CAD; s/p cardiac arrest in 2009, status post pacemaker for sick sinus rhythm, atrial fibrillation s/p ablation x 3; follows up with Dr Alvarado at [facility] Cardiology, hypertension and hyperlipidemia is here [...] 3; follows up with Dr Alvarado at [facility] Cardiology, hypertension and hyperlipidemia is here [...] 3; follows up with Dr Alvarado at [facility] Cardiology, hypertension and hyperlipidemia is here [...] in detail with patient and her 11/07/2024 Mixed hyperlipidemia (ICD-10 - E78.2) Mrs Flores is a 74-year-old lady with CAD; s/p cardiac arrest in 2009, status post pacemaker for sick sinus rhythm, atrial fibrillation s/p ablation x 3; follows up with Dr Alvarado at [facility] Cardiology, hypertension and hyperlipidemia is here [...] 3; follows up with Dr Alvarado at [facility], hypertension and hyperlipidemia is here today for [...] in detail with patient and her 11/07/2024 Heart failure, unspecified (ICD-10 - I50.9) Mrs Flores is a 74-year-old lady with CAD; s/p cardiac arrest in 2009, status post pacemaker for sick sinus rhythm, atrial fibrillation s/p ablation x 3; follows up with Dr Alvarado at [facility] Cardiology, hypertension and hyperlipidemia is here [...] with patient and her Plan Of Treatment Medication Medication Name Sig Start Date Stop Date Notes Lasix 20 MG 1 tablet Orally Once a day for 30 days 11/07/2024 Carvedilol 6.25 MG 1 tablet with food Orally Twice a day for 90 days Rivaroxaban 20 MG 1 tablet with food Orally Once a day for 30 days 11/08/2024 Rivaroxaban 15 MG 1 tablet with food Orally Once a day for 30 days 11/07/2024 this was discontinue d Farxiga 10 MG 1 tablet Orally Once a day for 30 days 11/07/2024 Next Appt Details Follow Up: 6 Months, Reason: Provider Name:Vi milian, 04/10/2025 09:30:00 AM, [address] [place] [address], [phone], Progress Notes * INDIRA FLORESOB:[birth year] (74 yo F)Acc No.[id number]:11/07/2024 Patient:?MANOJ FLORES Provider:?Eloise Zapata :1950???Age:74 Y???Sex:Female D ate:11/07/2024 Address:[address] [place], [place] [id number] Pcp:ANETTE KIRKLAND Subjective: * Chief Complaints: * ???[facility]; Notes Scanned * HPI: ???Internal Medicine:?Mrs Flores is a 74-year-old lady with CAD; s/p cardiac arrest in 2009, status post pacemaker for sick sinus rhythm, atrial fibrillation s/p ablation x 3; follows up with Dr Cuellar at [facility] Cardiology, hypertension and hyperlipidemia here for Acid reflux who was recently admitted to [facility] for acute decompensated heart failure was also found to have a right lower extremity DVTstarted on Xarelto.? Patient was seen by cardiology and recommende? diuretic therapy. patient was admitted to [facility] on 09/23 and discharged on 10/31/24. An echocardiogram was also done which showed EF of 33%.? Patient was started on 4 [place], since she was started on Xarelto Plavix was discontinued.? She was previously taking Lasix 20 mg every other day per Dr. Farfan from nephrology however there was also increased to a daily dose. Since her discharge she has been doing well, she is weighing herself daily.? She is watching her diet.? She is compliant with all her medications. * ROS:?General/Constitutional:?Overall health?Good.?Change in appetite?denies.?Chills?denies.?Fever?denies.?Night sweats?denies.?Sleep disturbance?denies.?Weight gain?denies.?Weight loss?denies.?Neurologic:?Difficulty speaking?denies.?Dizziness?denies.?Gait abnormality?denies.?Headache?denies.?Loss of strength?denies.?Memory loss?denies.?Seizures?denies.?Tingling/Numbness?denies .?Ophthalmologic:?Blurred vision?denies.?Discharge?denies.?Dry eye?denies.?Red eye?denies.?ENT:?Change in Voice?Denies.?Cold Symptoms?Denies.?Dizziness?Denies.?Nasal Congestion?Denies.?Otalgia?Denies.?postnasal drip?Denies.?Blocked ear?denies.?Nosebleed?denies.?Snoring?denies.?Cardiovascular:?Diaphoresis?Denies.?Pedal Edema?Denies.?PND (Paroxsymal nocturnal dyspnea)?Denies.?Chest pain?denies.?Difficulty laying flat?denies.?Dyspnea on exertion?denies.?Heart murmur?denies.?Orthopnea?denies.?Respiratory:?Snoring?denies.?Asthma?denies.?Cough?denies.?Shortness of breath with exertion?denies.?Sputum production?denies.?Wheezing?denies.?Gastrointestinal:?Change in bowel habits?denies.?Constipation?denies.?Decreased appetite?denies.?Diarrhea?denies.?Heartburn?denies.?Nausea?denies.?Vomiting?yanira es.?Musculoskeletal:?tingling/numbness?Denies.?myalgias?Denies.?Joint Swelling?Denies.?extremeties?normal.?Arthritis?denies.?Back problems?denies.?Carpal tunnel?denies.?Joint stiffness?denies.?Muscle aches?denies.?Endocrine:?Bowel Changes?Denies.?Breast Discharge?Denies.?poor libido?Denies.?Cold intolerance?denies.?Excessive sweating?denies.?Excessive thirst?denies.?Frequent urination?denies.?Thyroid problems?denies.?Skin:?Bruising?Denies.?Eczema?denies.?Hair changes?denies.?Rash?denies.?Skin lesion(s)?denies.?Psychiatric:?Anxiety?denies.?Depressed mood?denies.?Difficulty sleeping?denies.?Nervous breakdown?denies.?Substance abuse?denies.?Urology:?abnormal menstrual bleeding?denies.?blood in urine?denies.?burning on urination?denies.?difficulty urinating?denies.?discharge?denies.?dysuria?denies.? * Medical History:? * Medications:?TakingXarelto S benjamin Pack 15 & 20 MG Tablet Therapy Pack as directed Orally Sucralfate 1 GM Tablet 1 tablet on an empty stomach Orally Twice a day Aspir-81 Clopidogrel Bisulfate 75 MG Tablet 1 tablet Orally Once a day Vitamin D 25 MCG (1000 UT) Tablet 1 tablet Orally Once a day Diovan 320 MG Tablet 1 tablet Orally Once a day Rosuvastatin Calcium 40 MG Tablet 1 tablet Orally Once a day Pantoprazole Sodium 20 MG Tablet Delayed Release TAKE 1 TABLET BY MOUTH DAILY 0.5 TO 1 HOUR BEFORE BREAKFAST Carvedilol 6.25 MG Tablet 1 tablet with food Orally Twice a day Medication List reviewed and reconciled with the patientTaking Xarelto Starter Pack 15 & 20 MG Tablet Therapy Pack as directed Orally Taking Sucralfate 1 GM Tablet 1 tablet [...] 1 tablet Orally Once a day Taking Pantoprazole Sodium 20 MG Tablet Delayed Release TAKE 1 TABLET BY MOUTH DAILY 0.5 TO 1 HOUR BEFORE BREAKFAST Taking Carvedilol 6.25 MG Tablet 1 tablet with food Orally Twice a day Medication List reviewed and reconciled with the patient * Allergies:?adhesives: Allerg yhydroCHLOROthiazide: AllergyVerapamil HCl: AllergyLisinopril: AllergyAmlodipine: Dependent edema - Side Effects - Onset Date 10/05/2024no[Allergies Verified] Objective: * Vitals:?Temp: 96.5 F, Oxygen sat %: 99 %, HR: 68 /min, BP: 120/78 mm Hg, Wt: 170.5 lbs, BMI: 25.92 Index, Ht: 5'8 . * Examination: ???General Examination: ?Psychiatry?Normal.?GENERAL APPEARANCE:?Well developed, well nourished, in no acute distress.?MUSCULOSKELETAL:?Normal.?HEAD:?Normocephalic, atraumatic.?EYES:?Pupils equal, round, reactive to light and accommodation, sclera non-icteric.?EARS:?Normal.?ORAL CAVITY:?Normal.?THROAT:?Clear.?OROPHARYNX?Normal.?SINUSES?Normal.?NECK/THYROID:?Neck supple, full range of motion, no cervical lymphadenopathy.?SKIN:?Warm and dry, no suspicious lesions.,varicose veins are noted BL, more pronounced on the right.?HEART:?S1, S2 normalregular rate and rhythmgrade 2/6 systolic murmur at right upper sternal border.?LUNGS:?Normal, clear to auscultation bilaterally, no wheezes, rales, rhonchi.?BREASTS:?__.?ABDOMEN:?Soft, nontender, nondistended, bowel sounds present, normal.?EXTREMITIES:?2+ pitting edema right lower extremity.?PERIPHERAL PULSES:?Normal.?NEUROLOGIC:?Nonfocal,? appropriate?motor strength normal upper and lower extremities, sensory exam intact.?FEMALE GENITOURINARY:?__.?MALE GENITOURINARY:?__.?PODIATRIC:?Normal.?Director Non Profit? .? Assessment: * Assessment: 1.?Hospital discharge follow -up - Z09 (Primary)???2.?Essential (primary) hypertension - I10???3.?Venous insufficiency (chronic) (peripheral) - I87.2???4.?Mixed hyperlipidemia - E78.2???5.?Gastro-esophageal reflux disease without esophagitis - K21.9???6.?Heart failure, unspecified - I50.9??? Mrs Flores is a 74-year-ol d lady with CAD; s/p cardiac arrest in 2009, status post pacemaker for sick sinus rhythm, atrial fibrillation s/p ablation x 3; follows up with Dr Alvarado at [facility] Cardiology, hypertension and hyperlipidemia is here today for a post hospital discharge follow-up. Post hospital discharge follow-up 7 days.? Patient was admitted for decompensation acute on chronic systolic heart failure EF of 33%. She is currently euvolemic, no lower extremity edema lung exam is clear. She is on Coreg, valsartan therapy, Lasix 20 mg daily, she was also started on farxiga 10 mg daily, once she gets stabilized we will discuss about starting entersto she? will continue with low sodium diet, and weighing herself daily. Bilateral venous insufficiency. compression stockings New DVT in the right lower extremity.? Unprovoked.? She has a hematology appointment tomorrow.? She has history of atrial fibrillation and stroke for which she was on Coumadin and Eliquis but that was discontinued once she had a watchman procedure done for history of chronic atrial fibrillation.? During this hospitalization she was found to have a right lower extremity DVT and was seen by hematology started on Xarelto.? She is currently taking 20 mg twice a day and then will switch to 20mg daily? Chronic kidney disease stage IIIa. She has [...] plan was discussed in detail with patient and? her Plan: * Treatment: 2.?Essential (primary) hyper tension? Refill Carvedilol Tablet, 6.25 MG, 1 tablet with food, Orally, Twice a day, 90 days, 180 Tablet, Refills 1;?Start Lasix Tablet, 20 MG, 1 tablet, Orally, Once a day, 30 days, 30, Refills 3, Notes: dose has been increased to 1 tablet daily.?? 3.?Heart failure, unspecifie d? Start Farxiga Tablet, 10 MG, 1 tablet, Orally, Once a day, 30 days, 30;?Start Rivaroxaban Tablet, 15 MG, 1 tablet with food, Orally, Once a day, 30 days, 30, Refills 3, Notes to Pharmacist: this was discontinued.?? 4.?Others? Start Rivaroxaban Tablet, 20 MG, 1 tablet with food, Orally, Once a day, 30 days, 30, Refills 3, Notes: please discontinue 15 mg dose patient needs 20 mg daily dose.?? * Procedure Codes:?42981 (COVI D_19) TRANS CARE MGMT 7 DAY DISCH * Follow Up:?6 Months * * Sign off status: Completed true * Provider:?Eloise Zapata, Date:?11/07/2024 Generated for Efren rodríguez/Kong/Fayitting on:?12/28/2024 08:23 AM EDT History and Physical Notes * HPI (History of Present Illness) Category Sub-Category Detail Notes Category Not es Internal Medicine Mrs Flores is a 74-year-old lady with CAD; s/p cardiac arrest in 2009, status post pacemaker for sick sinus rhythm, atrial fibrillation s/p ablation x 3; follows up with Dr Cuellar at [facility] Cardiology, hypertension and hyperlipidemia here for Acid reflux who was recently admitted to [facility] for acute decompensated heart failure was also found to have a right lower extremity DVTstarted on Xarelto. Patient was seen by cardiology and recommende diuretic therapy. patient was admitted to [facility] on 09/23 and discharged on 10/31/24. An echocardiogram was also done which showed EF of 33%. Patient was started on 4 [place], since she was started on Xarelto Plavix was discontinued. She was previously taking Lasix 20 mg every other day per Dr. Farfan from nephrology however there was also increased to a daily dose. Since her discharge she has been doing well, she is weighing herself daily. She is watching her diet. She is compliant with all her medications. Examination Category Sub-Category Detail Notes Category Not [...] murmur at right upper sternal border LUNGS: Normal, clear to aus cultation bilaterally, no wheezes, rales, rhonchi ABDOMEN: Soft, nontender, non distended, bowel sounds [...] Normal Psychiatry Normal OROPHARYNX Normal SINUSES Normal Director Non Profit
== END 2024-12-28 09:26 | disposition home or self-care (01) ==
LOC: HO.HGI 08:14
PROVIDERS: Visit Provider Nurse Practitioner Family
DX: K21.9 Gastro-esophageal reflux disease without esophagitis (principal); Z12.11 Encounter for screening for malignant neoplasm of colon
CPT/HCPCS: 99204

== ENCOUNTER → 2024-12-28 08:14 | Outpatient (BNVA) | payer MEDICARE, SELFPAY | PROVIDERS: Visit Provider Nurse Practitioner Family | DX: R10.13 Epigastric pain (principal) | CPT/HCPCS: 99202 ==

== ENCOUNTER 2025-01-25 07:50 | Outpatient (AMB) | payer MEDICARE, SELFPAY ==
--- NOTE | 2025-01-25 07:52 | MHC.OFFVIS ---
Vital Signs 01/25/25 07:55 Height 5 ft 8 in Weight 167 lb 8.821 oz BMI 25.5 BP 137/63 Blood Pressure Location Lt brachial Position Sitting Pulse 69 Intake Visit Reasons: 4 wks f/u Dyspepsia Intake Note: Jessica presents in the office as a 4 weeks follow up despepsia. CC: She states that she is feeling okay and no concerns at this time. She stopped taking a lot of her medications - senna was stopped because it was giving her diarrhea. Assistant Food Service Director Required: No Allergies hydrochlorothiazide Allergy (Verified 01/25/25 07:56) Unknown lisinopril Allergy (Verified 01/25/25 07:56) Unknown verapamil Allergy (Verified 01/25/25 07:56) Unknown adhesives Allergy (Uncoded 01/25/25 07:56) Unknown Medication List - Last Reconciled 01/25/25 by Angela Oshea CNP bisacodyl 5 mg PO ONCE 1 day carvedilol mg PO BID cholecalciferol (vitamin D3) 100 mcg PO DAILY dapagliflozin propanediol (Farxiga) 10 mg PO DAILY denosumab (Prolia) 60 mg subcut [id number] docusate sodium 100 mg PO BID PRN furosemide (Lasix) 20 mg PO 3XW 3 months pantoprazole 20 mg PO BID PRN polyethylene glycol 3350 (Miralax) 238 grams PO ONCE rivaroxaban (Xarelto) 20 mg PO DAILY rosuvastatin mg PO DAILY spironolactone 25 mg PO DAILY valsartan (Diovan) mg PO DAILY HPI HPI 4 wks f/u Dyspepsia: Details: Patient is a 74-year-old female with PMH of hypertension, hyperlipidemia, osteoporosis, CAD, A-Fib and CKD. She presents today for follow up on dyspepsia. Patient is accompanied by her Brendan. Jessica notes her acid reflux symptoms have been less frequent since starting the injectable osteoporosis medication. Shares she stopped taking pantoprazole over the weekend after initially forgetting it while away for home. Reports feeling fine without it. She did not experience any symptoms of acid reflux since ceasing the medication. Jessica voiced concerns about constipation management, stating that she stopped taking senna due to loose stools. Shares her stools, described over the last four days, matched type 3 on the [place] stool chart, though she occasionally strains, which she attributes to habit. She denies melena/hematochezia. COUNT INCLUDES THE [facility] Medical History (Updated 01/25/25 @ 08:44 by Angela Oshea CNP) Constipation Dyspepsia Cerebral infarction Atrial fibrillation Pacemaker CAD (coronary artery disease) Hyperlipidemia Hypertension Surgical History History of esophagogastroduodenoscopy (EGD) Hx of colonoscopy H/O heart artery stent H/O wrist surgery History of cataract surgery S/P ablation of atrial fibrillation Family History (Updated 01/25/25 @ 07:56 by CASSIDY Granger) Brother Cancer Heart disease Hypertension Atrial fibrillation Father Heart disease Sister Stroke Hypertension Paternal Grandmother Breast cancer Colon cancer Social History Alcohol intake: current Comment: Wine- Occasionally Patient Tobacco Use Status: Former Tobacco user Review of Systems Const Reports as per HPI ENT Reports as per HPI Card Reports as per HPI Resp Reports as per HPI GI Reports as per HPI Reports as per HPI Physical Exam Vital Signs: Last Vital Signs Pulse 69 01/25/25 07:55 BP 137/63 01/25/25 07:55 BMI result Body Mass Index 25.5 Const General: healthy appearing, no acute distress and well developed Nutritional Appearance: well nourished Orientation/consciousness: patient oriented x3 HEENT Head: Yes normal to inspection, Yes normocephalic and Yes atraumatic Face and sinus: Yes normal facial exam Eyes General: appearance normal, both eyes and all related structures Neck Neck: Yes normal visual inspection Resp Effort & Inspection: normal respiratory effort, able to speak in complete sentences, no tracheal deviation and symmetric chest movement Auscultation: clear to auscultation bilaterally Cardio Jugular venous distension: no JVD Rate: regular rate Rhythm: regular rhythm Heart sounds: S1 normal heart sound present, S2 normal heart sound present, no gallops and no murmurs GI Inspection: Yes normal to inspection and No distended Palpation (GI): Soft to palpation, not firm, nontender and No hepatosplenomegaly present Auscultation: normal bowel sounds Neuro General: patient oriented x3 Gait exam (Neuro): Normal gait present Psych Appearance: grossly normal Mental Status: mental status grossly normal Speech and movement: Normal speech and movement present Affect: normal affect Attitude: cooperative Thought process: Normal thought process present Thought content: Normal thought content present Insight: Good insight present (Psych) Judgement: Good judgement present (Psych) Assessment & Plan Assessment & Plan (1) Dyspepsia: Code(s): R10.13 - Epigastric pain Category: Medical Plan: Suspect change in osteoporosis management has been beneficial for symptom relief. H. Pylori negative. We are awaiting remaining lab results from lab familia. Continue withholding pantoprazole as the patient reports no current symptoms. Education on GERD prevention : -Advised against heavy meals; encouraged small, frequent meals instead of large ones. - Instructed to remain upright for 2?3 hours after eating. - Advised to avoid late-night meals, spicy foods, caffeine, alcohol, known dietary triggers, and tight-fitting clothing. - Emphasis placed on gradual implementation of lifestyle changes to improve adherence and symptom control. Reassess symptom management after procedures are completed. (2) Constipation: Code(s): K59.00 - Constipation, unspecified Category: Medical Qualifiers: Constipation type: unspecified constipation type Qualified Code(s): K59.00 - Constipation, unspecified Plan: Recommend initiating Colace for stool softening PRN. Reinforced lifestyle modifications to promote regularity: -higher fiber diet, examples provided -adequate hydration with water -150 minutes of moderate intensity exercise per week Follow-Up: Monitor bowel movement consistency and frequency. Adjust treatment as needed upon next visit. Plan We will proceed with endoscopy as previously discussed. Follow up after procedure. Time: I spent a total of 25 minutes on the date of encounter which includes: Preparing to see the patient (reviewed previous documentation, test results and medical history) Performing a medically appropriate exam and/or evaluation Ordering medications, tests, and procedures Documenting clinical information in the health record Medications: New docusate sodium 100 mg PO BID PRN 180 caps 1RF constipation bisacodyl Take four tablets once for 1 day per colonoscopy instructions 5 mg PO ONCE 1 day 4 tabs 0RF polyethylene glycol 3350 (Miralax) per colonoscopy prep instructions 238 grams PO ONCE 238 grams 0RF Changed From pantoprazole 20 mg PO BID 90 tabs 1RF To pantoprazole 20 mg PO BID PRN Coding Level of Care Code Established Pt Est Pt Level 3 (58594) Patient Type Established Diagnoses Dyspepsia R10.13 Constipation, unspecified constipation type K59.00 Constipation type: unspecified constipation type
[2025-01-25 07:55] VITALS: BP 137/63; PULSE 69; BMI 25.5
== END 2025-01-25 08:25 | disposition home or self-care (01) ==
LOC: HO.HGI 07:51
PROVIDERS: Visit Provider Nurse Practitioner Family
DX: R10.13 Epigastric pain (principal); K59.00 Constipation, unspecified
CPT/HCPCS: 99213

== ENCOUNTER → 2025-01-25 07:50 | Outpatient (BNVA) | payer MEDICARE, SELFPAY | PROVIDERS: Visit Provider Nurse Practitioner Family | DX: R10.13 Epigastric pain (principal); K59.00 Constipation, unspecified | CPT/HCPCS: 99212 ==

== ENCOUNTER 2025-04-24 09:19 | Outpatient (AMB) | payer MEDICARE, SELFPAY ==
--- OUTSIDE RECORDS SUMMARY | 2024-07-10 13:30 | XMS_ITS | Encounter Summary ---
Author Organization [facility] Address [address] [place] [address] Care Team Providers Care Deliver Driver Name Role Phone Loyd Moore MD Primary Care Provider [phone] Reason for Referral * Imaging (Routine) - Closed Specialty Diagnoses / Procedures Referred By Yuval liang Referred To Contact Cardiology Diagnoses Paroxysmal atrial fibrillation (CMS/HCC V24, CMS/HCC V28) Procedures Transesophageal echocardiogram (ANA) with possible cardioversion with PRN contrast LA ECHOCARDIOGRAPHY TRANSESOPHAGEAL REAL-TIME W IMG DOC INCL PROBE PLCMNT LA ECHOCARDIOGRAPHY DOPPLER COLOR FLOW MAPPING LA DOPPLER ECHO COMPLETE LA CARDIOVERSION ELECTIVE ELECTRICAL CONVERSION ARRHYTHMIA EXTERNAL Chito Cuellar MD [address] [address] Phone: tel: fax: [facility] Referral ID Status Reason Start Date Expiration Date Visits Re quested Visits Authorized [id number] Closed 07/03/2024 07/03/2025 1 1 Reason for Visit * Imaging (Routine) - Closed Specialty Diagnoses / Procedures Referred By Yuval liang Referred To Contact Cardiology Diagnoses Paroxysmal atrial fibrillation (CMS/HCC V24, CMS/HCC V28) Procedures Transesophageal echocardiogram (ANA) with possible cardioversion with PRN contrast LA ECHOCARDIOGRAPHY TRANSESOPHAGEAL REAL-TIME W IMG DOC INCL PROBE PLCMNT LA ECHOCARDIOGRAPHY DOPPLER COLOR FLOW MAPPING LA DOPPLER ECHO COMPLETE LA CARDIOVERSION ELECTIVE ELECTRICAL CONVERSION ARRHYTHMIA EXTERNAL Chito Cuellar MD [address] [address] Phone: tel: fax: [facility] Referral ID Status Reason Start Date Expiration Date Visits Re quested Visits Authorized [id number] Closed 07/03/2024 07/03/2025 1 1 Encounter Details Date Type Department Care Team (Latest Contact Info) Description 07/10/2024 12:30 PM EST Hospital Encounter [facility] Cardiac Speech Lang Path [address] [place] [phone] Alecia Pastor MD [address] [place] [address] Paroxysmal atrial fibrillation (CMS/HCC V24, CMS/HCC V28) Social History Tobacco Use Types Packs/Day Years Used Date Smoking Tobacco: Never Smokeless Tobacco: Never Alcohol Use Standard Drinks/Week Comments Not Currently 0 (1 standard drink = 0.6 oz pur e alcohol) Comments Unknown Sex and Gender Information Value Date Recorded Sex Assigned at Female 07/10/2024 11:29 AM EST Legal Sex Female 8:36 AM EST Gender Identity Female 07/10/2024 11:29 AM EST Sexual Orientation Straight 07/10/2024 11 :29 AM EST documented as of this encounter Last Filed Vital Signs Vital Sign Reading Time Taken Comments Blood Pressure 135/59 07/10/2024 11:55 AM EST Pulse 62 07/10/2024 11:55 AM EST Temperature 36.6 C (97.8 F) 07/10/2024 11:55 AM EST Respiratory Rate 18 07/10/2024 11:55 AM EST Oxygen Saturation 100% 07/10/2024 11:55 AM EST Inhaled Oxygen Concentration - - Weight 78 kg (171 lb 15.3 oz) 07/10/2024 3:38 PM EST Height 172.7 cm (5' 7.99 ) 07/10/2024 3:38 PM ES T Body Mass Index 26.15 07/10/2024 3:38 PM EST documented in this encounter Progress Notes * Alecia Pastor MD - 07/10/2024 1:26 PM EST Pt gargled with a 2% viscous lidocaine solution. Bite block was placed in the oropharynx and pt wasplaced in the left lateral decubitus position. Pt was sedated per anesthesia. I had a difficult time inserting the ANA probe. Several attempts had to be made due to patient laryngospasm. Once the patient recovered from laryngospasm, I attempted to pass the probe again and were successful. Briefly, pt was found to have a left atrial appendage occlusion device seen well-positioned at the ostium of the left atrial appendage. There was a small leak noted around the inferior aspect of the device. 3Dimaging with color Doppler was obtained demonstrating this leak. It is likely insignificant but vena contract and measurements will be made. Please see official ANA report for further details. See full echo report for remainder of findings. ANA probe was removed from the esophagus without issue. Pt tolerated the procedure well. There wereno major complications. documented in this encounter Procedure Notes * Eron Dukes RN - 07/10/2024 2:33 PM EST Meets d/c criteria written and verbal inst. given * Eron Dukes RN - 07/10/2024 1:59 PM EST Swallowing without difficulty, vs at baseline, airway patent * Claudy Jeronimo RN - 07/10/2024 11:48 AM EST Ridgisel gonzalez is , Brendan. [phone] documented in this encounter Plan of Treatment Upcoming Encounters Date Type Department Care Team (Late st Contact Info) Description 12/10/2025 8:30 AM EDT Ancillary Procedure [facility] [address] [place] [address] documented as of this encounter Procedures Procedure Name Priority Date/Time Associated Diagnosis Comments ANA COMPLETE W/COLOR FLOW AND SPECTRAL DOPPLER Routine 07/10/2024 12:52 PM EST Paroxysmal atrial fibrillation (CMS/HCC V24, CMS/HCC V28) documented in this encounter Results * ANA COMPLETE W/COLOR FLOW AND SPECTRAL DOPPLER (07/10/2024 12:52 PM EST) BSA 1.93 m2 CV PACS AV Vena Contracta 0.42 cm CV PACS Aortic Root 3.6 cm CV PACS Aortic Root Index 1.88 cm/m2 CV PACS Ascending Aorta 4.0 cm CV PACS Ascending Aorta Index 2.08 cm/m2 CV PACS TR Peak Velocity 2.40 m/s CV PACS TR Peak Gradient 22 mmHg CV PACS Anatomical Region Laterality Modality X-Ray Angiograph y Narrative 07/12/2024 4:37 PM EST There is a well-positioned left atrial appendage occlusion device seen at the ostium of the left atrial appendage. There is a small insignificant leak around the device at its inferior aspect. Vena contracta measurement was only 0.22 cm. Trileaflet aortic valve which demonstrates moderate regurgitation with a centrally directed jet. Leaflets are mildly thickened. There is no aortic stenosis. The ascending aorta is mildly dilated (4.0 cm). The aortic root is upper normal in size. Normal biventricular systolic function. Transesophageal echocardiogram performed post Watchman left atrial appendage occlusion procedure. Device is well-positioned. There is an insignificant leak around the device at its inferior aspect. Left Ventricle Left ventricle cavity size is normal. Systolic function is normal with an ejection fraction of 55-60%. There are no regional LV wall motion abnormalities. Right Ventricle Right ventricle cavity is mildly dilated. Systolic function is normal. Left Atrium Left atrium cavity is severely dilated. The pulmonary veins demonstrate normal venous flow. There is a Watchman left atrial appendage occlusion device seen well- positioned at the ostium of the left atrial appendage. It is visualized in multiple angles per watchman protocol. There is a small leak around the device at its inferior aspect adjacent to the circumflex artery. 3D rendering of the device confirmed presence of this leak. The vena contracta of this leak measured 0.22 cm. Right Atrium Right atrium cavity is moderately dilated. Mitral Valve The leaflets are mildly thickened and exhibit normal excursion. There is moderate posterior annular calcification. Mildly decreased posterior leaflet mobility. There is trace regurgitation. There is no evidence of mitral valve stenosis. Tricuspid Valve Tricuspid valve structure is normal. There is mild regurgitation. There is no evidence of tricuspid valve stenosis. The right ventricular systolic pressure is likely normal at 22 mmHg plus right atrial pressure. Aortic Valve The aortic valve is trileaflet. The leaflets are mildly thickened and exhibit normal excursion. There is moderate regurgitation with a centrally directed jet. Pulmonic Valve Pulmonic valve structure is normal. There is trace pulmonic valve regurgitation. There is no evidence of pulmonic valve stenosis. Ascending Aorta The ascending aorta is mildly dilated (4.0 cm). The aortic root is normal in size at 3.6 cm. There is moderate, calcified atherosclerotic plaque noted in the descending thoracic aorta. Pericardium The pericardium appears grossly normal. There is a small epicardial fat pad noted. There is no pericardial effusion. Study Details Overall the study quality was good. A transesophogeal echo was performed using 3D imaging and postprocessing performed without an independent workstation. The probe was inserted by the multifocal button inspector. There was no probe insertion difficulty. by anesthesia. The patient had no complications. Estimated blood loss: no blood loss. No specimens were collected. Clinical Background Post Watchman device evaluation. Chito Cuellar MD CV ECHO PROCEDURES Final Resul t documented in this encounter Visit Diagnoses Diagnosis Presence of Watchman left atrial appendage closure device- Primary Paroxysmal atrial fibrillation (CMS/[facility] V24, CMS/HCC V28) Atrial fibrillation Encounter for adjustment or management of cardiac device documented in this encounter Admitting Diagnoses Diagnosis Presence of Watchman left atrial appendage closure device documented in this encounter Orders Admission Count Last Ordered Date First Orde red Date INITIATE OBSERVATION STATUS 1 07/10/2024 documented in this encounter Care Teams Deliver Driver Relationship Specialty Start Date End Date Loyd Moore MD [address] [place] [id number] PCP - General 12/07/23 03/05/25 documented as of this encounter
--- OUTSIDE RECORDS SUMMARY | 2024-12-06 04:55 | XMS_ITS | Continuity of Care Document ---
Author Organization [facility] Address [address] [place] [address] [address] [place] [address] Phone Care Team Providers Care Border Inspector Name Role Phone Kvng WARD, VIANCA, Fredy HUNTLEY Unavailable U navailable Procedures Procedure Date Offic/outpt E&m Estab 5 Min Trial - Tele medicine Office/Oupt E&M New Pt 30 Mins 24 Duplex Scan-extrem Veins; Uni/ 24 Advance Directives Directive Yes / No Effective Date File Name No Information Encounters Encounter Description Practice Location Reason(s) For Visit Diagnoses Date Provider Providers Copied on Encounter [facility], [address] [place] [address] [address], [id number], [place] tel:[phone] [facility] No Information 5 Kvng WARD, YUKO COLEY. [address] [place] [address], [id number], [place]. tel:[phone] Offic/outpt E&m Estab 5 Min Trial - Telemedicine [facility], [address] [place] [address] [address]Darci [place], [id number], [place] tel:[phone] [facility] Atherosclerot ic heart disease of [place] coronary artery without angina pectorisEssen tial (primary) hypertensionV enous insufficiency (chronic) (peripheral) 4 Joanna Norton. [address] [place] [address], [facility] [place], [id number], [place]. tel:[phone] Referring Provider: Loyd Moore MD, [address] [place], [address]. tel:[phone] Office/Oupt E&M New Pt 30 Mins [facility], [address] [place] [address] [address], [place], [id number], [place] tel:[phone] [facility] [place] Varicose veins of right lower extremity with other complications Pain in right lower legAtheroscle rotic heart disease of [place] coronary artery without angina pectorisEssen tial (primary) hypertension 4 Kvng WARD RVT, YUKO Daniel. [address] [place] [address], [facility] [place], [id number], [place]. tel:[phone] Referring Provider: Loyd Moore MD, [address] [place], [address]. tel:[phone] [facility], [address] [place] [address] [address], [place], [id number], [place] tel:[phone] CV[place] Varicose veins of right lower extremity with pain 4 Kvng WARD RVT, YUKO Daniel. [address] [place] [address], [facility] [place], [id number], [place]. tel:[phone] Referring Provider: Loyd Moore MD, [address] [facility] [place], [address]. tel:[phone] Family History Family Member Type Diagnosis Age At Onset No Information Payers Payer name Insurance type Covered alliance party ID Authoriza tion(s) Medicare HAILEY GARSIA [id number] [facility] HAILEY WILLOUGHBY [id number] Social History Type Description Quantity Date Captured Comments Alcohol Use Details Unknown Caffeine Use Details Unknown Tobacco Use Status No Information Smoking Status No Information Sex Female Chief Complaint And Reason For Visit No Information Reason For Referral Reason For Referral No Information Plan Of Treatment Date Type Action Status Goal Tobacco cessation counseling completed Goal Diet education completed Goal Tobacco cessation counseling completed Referral Ordered: Weight management: Referral to physician timeframe: 3 Months (related to Body mass index (BMI) 28.0-28.9, adult) ordered History Of Present Illness Encounter Date Complaint History Of Prese nt Illness No Information Functional Status Date Functional Assessmen t No Information Instructions Date Instruction Additional Infor alisia Patient education booklet given Related to Venous insufficiency (chronic) (peripheral) Diet education Related to Body mass index (BMI) 28.0-28.9, adult Giving Encouragement to exercise Related to Body mass index (BMI) 28.0-28.9, adult Lifestyle education Related to B devi mass index (BMI) 28.0-28.9, adult Patient education booklet given Related to Varicose veins of right lower extremity with other complications Pre and post instruc tions reviewed and provided Related to Varicose veins of right lower extremity with other complications Assessments Type Assessment Date No Information Patient Care Teams Name Effective Dates (start - stop) Status Members No Information
--- OUTSIDE RECORDS SUMMARY | 2025-03-06 07:37 | XMS_ITS ---
Author Organization [facility] Address [address], [place] [id number] Care Team Providers Care Distribution Operations Manager Name Role Phone JESSICA HOLMAN Primary Care Provider REASON FOR VISIT Xarelto refill MEDICATIONS Medication SIG (Take, Route, Frequency, Duration) Notes Start Date End Date Status Xarelto 20 MG 1 tablet with food O rally Once a day for 90 days Active Encounters Encounter Location Date Provider Diagnosis [facility] [address] [place] [phone] 03/06/2025 JESSICA HOLMAN PLAN OF TREATMENT Medication Medication Name Sig Start Date Stop Date Notes Xarelto 20 MG 1 tablet with food O rally Once a day for 90 days Next Appt Details Provider Name:JESSICA HOLMAN, 05/08/2025 10:20:00 AM, [address] [place], [phone],
--- OUTSIDE RECORDS SUMMARY | 2025-03-19 06:20 | XMS_ITS ---
Author Organization [facility] Address [facility] [place], [place] [id number] Care Team Providers Care Gallery Or Museum Curator Name Role Phone JESSICA HOLMAN Primary Care Provider ALLERGIES Allergen (clinical drug ingredient) Drug/Non Drug Allergy documented on EMR Reaction Allergy Type Onset Date Status hydrochlorothiazide hydroCHLOROthiazide Unknown Drug Aller gy Active lisinopril Lisinopril Unknown Drug Allergy Activ e pantoprazole Protonix Unknown Drug Allergy Acti ve verapamil Verapamil Unknown Drug Allergy Active REASON FOR VISIT f/u February, discuss meds ( took her self off of two meds) MEDICATIONS Medication SIG (Take, Route, Frequency, Duration) Notes Start Date End Date Status Spironolactone 25 MG 1 tablet Orally Onc e a day for 30 day(s) Active Rosuvastatin Calcium 40 MG 1 tablet Oral ly Once a day for 30 day(s) Active Voltaren 1 % as directed External ly as needed Active Xarelto 20 MG 1 tablet with food O rally Once a day for 90 days Active Diovan 320 MG 1 tab(s) orally once a day for 30 day(s) Active Carvedilol 25 MG 1 tablet with food O rally Twice a day for 30 day(s) Active Vitamin D 50 MCG (1999 UT) 1 tablet Oral ly Once a day for 30 day(s) Active SOCIAL HISTORY Tobacco Use: Social History Observation Description Date Details (start date - stop date) Former Smoker NA - NA Sex Assigned At : Social History Observation Description Sex Assigned At Unknown Smoking Question Answer Notes Are you a: former smoker How long has it been since you last smoked? > 10 years PROBLEMS Problem Type ICD Code Onset Dates Problem Status W/U Status Risk SNOMED Code Notes Problem Dyslipidemia (E78.5) Active confirmed 382247060 Problem Paroxysmal atrial fibrillation (I48.0) Active confirmed 530441864 VITAL SIGNS Height 66 in 03/19/2025 Weight 173.6 lbs 03/19/2025 Blood pressure systolic 146 mm Hg 03/19/20 25 Blood pressure diastolic 82 mm Hg 025 BMI 28.02 kg/m2 03/19/2025 Encounters Encounter Location Date Provider Diagnosis [facility] [address] [place] [phone] 03/19/2025 JESSICA HOLMAN Dyslipidemia E78.5 ; Elevated serum creatinine R79.89 and Paroxysmal atrial fibrillation I48.0 ASSESSMENTS Encounter Date Diagnosis Assessment Notes Treatment Notes Treatment Clinical Notes Section Notes 03/19/2025 Dyslipidemia (ICD-10 - E78.5) 03/19/2025 Elevated serum creatinine (ICD-10 - R79.89) 03/19/2025 Paroxysmal atrial fibrillation (ICD-10 - I48.0) stable on cv regimen PLAN OF TREATMENT Treatment Notes Assessment Notes Paroxysmal atrial fibrillation stable on cv regimen Next Appt Details Follow Up: 6 Weeks, Reason: Provider Name:JESSICA HOLMAN, 05/08/2025 10:20:00 AM, [address] [place] [address], [phone], History and Physical Notes * HPI (History of Present Illness) Category Sub-Category Detail Notes Category Not es General f/ hx ablasion in past a nd last appt November PVC PA advised coronary calcium score. States cardiology and stopped furosemide and told kidney improved . Manoj decided to stop farsiga. Stomach discomfort started Fe and sattes couple months stomach feels better. Physical Examination Category Sub-Category Detail Notes Section Note s EXTREMITIES Edema: none creat 1.January CHEST Breath sounds: clear to auscultation cre at 1.January HEART Rhythm: regular creat .January Heart sounds: Normal S1 & S2, no S 3/S4 NEUROLOGICAL Gait: normal creat 1.January Mental status: Alert and oriented t o person, place, time Speech normal GENERAL General Appearance: well nourish ed, no apparent distress, WF her with her creat .January PSYCHOLOGY Grooming: appropriate creat 1.9 january Eye contact: normal Mood: pleasant Affect appropriate
--- OUTSIDE RECORDS SUMMARY | 2025-03-19 07:46 | XMS_ITS ---
Author Organization [facility] Address [address] [place] [id number] Care Team Providers Care Heating Equipment Repairer Name Role Phone JESSICA HOLMAN Primary Care Provider REASON FOR VISIT nephrology Encounters Encounter Location Date Provider Diagnosis [facility] [address] [place] [phone] 03/19/2025 JESSICA HOLMAN PLAN OF TREATMENT Next Appt Details Provider Name:JESSICA HOLMAN, 05/08/2025 10:20:00 AM, [address] [place], [phone],
--- NOTE | 2025-04-24 09:33 | HO.NEPHOV ---
Vital Signs 04/24/25 09:38 Height 5 ft 8 in Weight 167 lb BMI 25.4 BP 130/66 Blood Pressure Location Lt brachial Position Sitting Pulse 61 Pulse Source Pulse Oximeter Pulse Oximetry (%) 96 Oxygen Delivery Method Room Air Intake Visit Reasons: 6mon follow-up w/labs-LVM Environmental Remediation Consultant Required: No Accompanied by: Spouse Allergies hydrochlorothiazide Allergy (Verified 04/24/25 09:38) Unknown lisinopril Allergy (Verified 04/24/25 09:38) Unknown verapamil Allergy (Verified 04/24/25 09:38) Unknown adhesives Allergy (Uncoded 01/25/25 07:56) Unknown HPI Comments Details: Jessica was seen for F/U CKD and hypertension. She is a delightful 74 year old with H/O hypertension, dyslipidemia, CAD as well as cardiac arrest in 2009. She also has H/O CVA. She has H/O proteinuria. She has no H/O DM. She has some edema. She denies chest pain, SOB, PND or orthopnea. She is not aware of any renal artery stenosis. She denies nausea, vomiting, diarrhea, abdominal pain or orthostatic symptoms. She has no recurrent sore throat, epistaxis, hematuria, photosensitivity, skin rashes, sensori neural deafness. Her serum bicarb has been low. She had HF and was admitted in [facility]. She was started on daily lasix and Farxiga which she d/Todd. She also had hyperkalemia and has been on low K diet. She did not have other complaints at the time of this office visit [facility] Medical History (Updated 04/24/25 @ 10:07 by Phani Lucas MD) Constipation Dyspepsia Cerebral infarction Atrial fibrillation Pacemaker CAD (coronary artery disease) Hyperlipidemia Hypertension Surgical History History of esophagogastroduodenoscopy (EGD) Hx of colonoscopy H/O heart artery stent H/O wrist surgery History of cataract surgery S/P ablation of atrial fibrillation Family History Brother Cancer Heart disease Hypertension Atrial fibrillation Father Heart disease Sister Stroke Hypertension Paternal Grandmother Breast cancer Colon cancer Social History Alcohol intake: current Comment: Wine- Occasionally Patient Tobacco Use Status: Former Tobacco user Review of Systems Const All systems reviewed & are unremarkable except as noted in HPI and below Physical Exam Vital Signs: Last Vital Signs Pulse 61 04/24/25 09:38 BP 130/66 04/24/25 09:38 Pulse Ox 96 04/24/25 09:38 Oxygen Delivery Method Room Air 04/24/25 09:38 BMI result Body Mass Index 25.4 Const General: comfortable and no acute distress Orientation/consciousness: patient oriented x3 HEENT Head: Yes normocephalic Mouth: Normal oral and palatal mucosa present Eyes EOM: EOMs intact bilaterally Neck Neck: Yes supple Resp Auscultation: clear to auscultation bilaterally Cardio Jugular venous distension: no JVD Rate: regular rate GI Palpation (GI): Soft to palpation Auscultation: normal bowel sounds General: Yes no CVA tenderness Back/Spine/Pelvis Back: no CVA tenderness Skin General skin exam: no rashes or lesions noted Neuro General: patient oriented x3 and moves all extremities Extrem General: Yes no pedal edema Assessment & Plan Assessment & Plan (1) CKD stage 3a, GFR 45-59 ml/min: Code(s): N18.31 - Chronic kidney disease, stage 3a Category: Medical (2) Hypertension: Code(s): I10 - Essential (primary) hypertension Category: Medical Qualifiers: Hypertension type: primary hypertension Qualified Code(s): I10 - Essential (primary) hypertension (3) Acidosis: Code(s): E87.20 - Acidosis, unspecified Category: Medical Plan 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 Her renal function is stable. She has H/O hyperkalemia but her K is normal now. She has been on ARB and Spironolactone along with low K diet. She has metabolic acidosis and I started her on PO NaHCO3 650 mg daily along with lasix every other day. She will need to restart Farxiga soon. She has H/O CAD as well as CVA. She has H/O mild proteinuria. She may need Doppler of renal arteries. She should not take excess Na and avoid NSAID's. I did not make any other medication changes but further management is pending evolving data. Answered all questions. Orders: Orders Electrolytes 3 Months E87.20 - Acidosis, unspecified, I10 - Essential (primary) hypertension, N18.31 - Chronic kidney disease, stage 3a Blood Urea Nitrogen 3 Months E87.20 - Acidosis, unspecified, I10 - Essential (primary) hypertension, N18.31 - Chronic kidney disease, stage 3a Protein Creatinine Ratio, Ur 3 Months E87.20 - Acidosis, unspecified, I10 - Essential (primary) hypertension, N18.31 - Chronic kidney disease, stage 3a Creatinine 3 Months E87.20 - Acidosis, unspecified, I10 - Essential (primary) hypertension, N18.31 - Chronic kidney disease, stage 3a Immunofixation Pnl, Serum 3 Months E87.20 - Acidosis, unspecified, I10 - Essential (primary) hypertension, N18.31 - Chronic kidney disease, stage 3a Medications: New furosemide (Lasix) 20 mg PO DAILY 90 tabs 3RF sodium bicarbonate 650 mg PO DAILY 90 tabs 1RF 90 days Coding Level of Care Code Est Pt Level 4 (57347) Diagnoses CKD stage 3a, GFR 45-59 ml/min N18.31 Primary hypertension I10 Hypertension type: primary hypertension Acidosis E87.20
[2025-04-24 09:38] VITALS: BP 130/66; PULSE 61; O2SAT 96; BMI 25.4
--- OUTSIDE RECORDS SUMMARY | 2025-04-24 09:44 | XMS_ITS | Clinical Summary ---
Author Organization [address] [place] [address] [place] [phone] Phone Care Team Providers Care Claims Investigator Name Role Phone Yamil Hoyos DO Primary Care Provider [phone] Allergies Active Allergy Reactions Criticality Noted Date Comments Hydrochlorothiazide Rash Low 10/30/2019 Lisinopril Cough 10/30/2019 cough Verapamil Nausea Only 07/30/2020 Upset stomach Medications rosuvastatin (CRESTOR) 40 mg tablet Take 1 tablet (40 mg total) by mouth 1 (one) time each day. Active DICLOFENAC SODIUM TOP Place on the skin if needed. Diclofenac Sodium 1 % Gel-Apply 1 Int'l Units topically as needed. - Topical Active aspirin 81 mg EC tablet Take [...] Do not crush, chew, or split. Active Diovan 320 mg tablet Take 1 tablet (320 mg total) by mouth 1 (one) time each day. 90 tablet 1 02/23/20 25 Active rivaroxaban (XARELTO) 15 mg tablet Take 1 tablet (15 mg total) by mouth 1 (one) time each day with dinner. Take with food. Active nitroglycerin (NITROSTAT) 0.[address] 1 Tab under the tongue as needed for Chest pain. - Sublingual 025 Discontinued cholecalcifero l (VITAMIN D-3) 25 mcg (1,000 unit) tablet Take 4 tablets (4,000 Units total) by mouth 1 (one) time each day. 025 Discontinued alendronate (FOSAMAX) 70 mg tablet Take 1 tablet (70 mg total) by mouth every 7 (seven) days. 05/10/20 24 025 Discontinued furosemide (LASIX) 20 mg tablet Take 1 tablet (20 mg total) by mouth 1 (one) time each day. 025 Discontinued dapagliflozin propanediol (Farxiga) 10 mg tablet Take 1 tablet (10 mg total) by mouth 1 (one) time each day. 025 Discontinued(Di scontinued by another clinician) sucralfate (CARAFATE) 1 gram tablet Take by mouth 2 (two) times a day. 025 Discontinued rivaroxaban (Xarelto DVT-PE Treat 30d Start) starter pack Take by mouth. Take 1 tablet (15 mg) by mouth 2 (two) times a day with meals for 21 days. Then take 1 tablet (20 mg) by mouth 1 (one) time each day with dinner. 025 Discontinued(Do se adjustment) Active Problems Problem Noted Date Diagnosed Date CHF (congestive heart failure) ([facility] V24, [facility] V28) 11/23/2024 DVT (deep venous thrombosis) ([facility] V24, [facility] V28) 11/23/2024 Permanent atrial fibrillation ([facility] V24, [facility] V28) 07/20/2024 PAH (pulmonary artery hypert ension) ([facility] V24, [facility] V28) 07/20/2024 Nonrheumatic tricuspid valve regurgitation 07/20 [...] Encounters Date Type Department Care Team Description 04/05/2025 Telephone [facility] [address] [place] [phone] Leti Becker RN 04/04/2025 Telephone [facility] [address] [place] [address] [place] [phone] Rita Valdez NP 04/02/[address] [phone] Leti Becker RN 03/10/2025 2:15 AM EDT Ancillary Procedure [facility] [address] [place] [address] 03/06/2025 Telephone [facility] [address] [place] [address] Rita Valdez NP 02/12/2025 Telephone [facility] - [address] [place] [address] Loyd Moore MD from Last 3 Months Immunizations Name [...] 71 11/28/2024 2:43 PM EDT Temperature 36.6 C (97.8 F) 07/10/2024 11:55 [...] 12/10/2025 8:30 AM EDT Ancillary Procedure [facility] - [address] [facility] [address] [place] [address] Health Maintenance Due Date Last Done Comments Pneumococcal Vaccine: 50+ Years (1 of 2 - PCV) 1969 Falls Risk Assessment 08/06/2022 Hepatitis C Screening 08/06/2022 Osteoporosis Screening (Bone Density Screening) 08/06/2022 Social Influencers of Health Screening 08/06/2022 RSV Immunization Adult Patients (1 - 1-dose 75+ series) 2023 Medicare Annual Wellness Visit 10/15/2023 10/15/2022 COVID-19 Vaccine ( season) 2024 01/15/2022, 06/19/2021, 11/25/2020, Additional history exists Depression Screening 08/30/2024 Influenza Vaccine (#1) 2025 , 05/11/2023, 05/25/2022, Additional history exists Hypertension/CHF/CAD Annual BMP Blood Test 04/03/2026 04/03/2025, 02/05/2025, 10/06/2024, Additional history exists Cholesterol Screening (Lipid Panel) 10/06/2029 10/06/2024 DTaP,Tdap,and [...] this topic Medical Devices Implanted Type Area Record Searcher Device Identifier Shelf Expiration Date Model / Serial / Lot Medt-Card [id number] Implanted:03/2020 (Quantity not on file) Cardiac Pacemaker [employer] - CARDIAC RHYTH-CRDM [id number] / [id number] / Medt-Card Micra Vr Tcp [id number] Implanted:03/2020 (Quantity not on file) Cardiac Pacemaker [employer] - CARDIAC RHYTH-CRDM MICRA VR TCP / [id number] / Device Clsur Watchman Flx Pro Aurea 35mm Bsci-Prnt [id number] Implanted:Qty : 1 on 05/11/2024 by Chito Cuellar MD Left: Chest DueProps BRANDEN 01/19/2027 [id number] / / [id number] Procedures Procedure Name Priority Date/Time Associated Diagnosis Comments BASIC METABOLIC PANEL Routine 04/03/2025 7:19 AM EDT CARDIAC DEVICE CHECK- REMOTE- MURJ Routine 03/10/2025 2:10 AM EDT BASIC METABOLIC PANEL Routine 02/05/2025 11:08 AM EDT LIPID PANEL WITH REFLEX TO DIRECT LDL Routine 10/06/2024 9:27 AM EST Essential hypertension, malignant from Last 3 Months or Most Recently Relevant to Health Maintenance Results * (ABNORMAL) Basic metabolic panel (04/03/2025 7:19 AM EDT) Only the most recent of2 resultswithin the time period is included. Glucose 92 70 - 99 mg/dL [facility] Blood Urea Nitrogen (BUN) 41(H) 8 - 27 mg/dL [facility] Creatinine 1.82(H) 0.57 - 1.00 mg/dL [facility] 1 eGFR 28(L) >59 mL/min/1.7 3 [facility] BUN/Creatinine Ratio 23 12 - 28 [facility] Sodium 140 134 - 144 mmol/L [facility] Potassium 5.7(H) 3.5 - 5.2 mmol/L [facility] 1 Chloride 107(H) 96 - 106 mmol/L [facility] 1 Carbon Dioxide 16(L) 20 - 29 mmol/L [facility] Calcium 9.3 8.7 - 10.3 mg/dL [facility] 1 04/03/2025 7:19 AM EDT 04/03/2025 Narrative [facility] - 04/04/2025 4:06 AM EDT Performed at: [address] [place] [id number] Foundry Hand: Brooke Almaguer MD, Phone: [phone] us Rita Valdez NP LAB BLOOD ORDERABLES Final R esult [facility] * Cardiac device check - Remote- MURJ (03/10/2025 2:10 AM EDT) Date Time Interrogation Session [id number] CV DEVICE CHECK Type Interrogation Session Remote CV DEVICE CHECK Implantable Pulse Generator Record Searcher MDT CV DEVICE CHECK Implantable Pulse Generator Type IPG CV DEVICE CHECK Implantable Pulse Generator Model [id number] CV DEVICE CHECK Implantable Pulse Generator Serial Number [id number] CV DEVICE CHECK Implantable Pulse Generator Implant Date 20200105 CV DEVICE CHECK Battery Remaining Longevity 96.0 CV DEVICE CHECK Battery Voltage 2.970 CV D EVICE CHECK Battery SPORTS MANAGEMENT INTERN Trigger 2.558 CV DEVICE CHECK Battery Status Middle of Service CV DEVICE CHECK Lead Channel Sensing Intrinsic Amplitude 11.700 CV DEVICE CHECK Lead Channel Setting Sensing Sensitivity 2.00 CV DEVICE CHECK Lead Channel Impedance Value 520 CV DEVICE CHECK Lead Channel Pacing Threshold Amplitude 0.500 CV DEVICE CHECK Lead Channel Pacing Threshold Pulse Width 0.2 CV DEVICE CHECK Lead Channel RV Pacing Threshold Date 2025-03-06 CV DEVICE CHECK Lead Channel Setting Pacing Amplitude 1.000 CV DEVICE CHECK Lead Channel Setting Pacing Pulse Width 0.2 CV DEVICE CHECK Nish Setting Mode (NBG Code) VVIR CV DEVICE CHECK Nish Setting Lower Rate Limit 60 CV DEVICE CHECK Nish Setting Maximum Sensor Rate 120 CV DEVICE CHECK Date of Service 2025-03-16 CV DEVICE CHECK Anatomical Region Laterality Modality Device Interroga tion 03/06/2025 7:21 AM EDT Impressions 03/09/2025 3:53 PM EDT Normal Remote: No Events * Normal Device Function * Alerts or events: None * Battery: OK, 8.00 yrs * Sensing, impedance and thresholds reviewed * Programmed parameters reviewed * Presenting rhythm reviewed * Heart Rate Histograms reviewed * No significant changes noted Narrative Procedure Note Chito Cuellar MD - 03/10/2025 IMPRESSION: Normal Remote: No Events * Normal Device Function * Alerts or events: None * Battery: OK, 8.00 yrs * Sensing, impedance and thresholds reviewed * Programmed parameters reviewed * Presenting rhythm reviewed * Heart Rate Histograms reviewed * No significant changes noted Chito Cuellar MD CV IMPLANTABLE CARDIAC DEVICE PROCEDURES Final Result * Lipid panel with reflex to direct LDL (10/06/2024 9:27 AM EST) Cholesterol 134 0 - 200 mg/dL LAB CHEMISTRY METHOD 10/06/2024 12:57 PM [facility] Triglycerides 49 0 - 150 mg/dL LAB CHEMISTRY METHOD 10/06/2024 12:57 PM EST [facility] HDL 83 >=40 mg/dL LAB CHEMISTRY METHOD 10/06/2024 12:57 PM [facility] LDL Calculated 41 0 - 100 mg/dL LAB CHEMISTRY METHOD 10/06/2024 12:57 PM [facility] VLDL Cholesterol Huey 9.8 mg/dL LAB CHEMISTRY METHOD 10/06/2024 12:57 PM [facility] Non HDL Chol. (LDL+VLDL) 51 <145 mg/dL LAB CHEMISTRY METHOD 10/06/2024 12:57 PM EST [facility] Chol/HDL Ratio 1.6 0.0 - 4.4 LAB CHEMISTRY METHOD 10/06/2024 12:57 PM EST [facility] Blood Venous blood specimen / Unknown Venipuncture / Unknown 10/06/2024 9:27 AM EST 10/06/2024 9:27 AM EST us Vi TAVAREZ LAB BLOOD ORDERABLES Final Result [facility] [address] [place] [address], from Last 3 Months or Most Recently Relevant to Health Maintenance Insurance MEDICARE [facility] Advance Directives Documents on File Type Date Recorded Patient Family Service Counselor Expl anation Health Care Decision (hx) 05/11/2024 ADVANCE DIRECTIVE AN D LIVING WILL Health Care Decision (hx) 02/14/2024 ADVANCE DIRECTIVE Health Care Decision (hx) 02/14/2024 ADVANCE DIRECTIVE Care Teams Claims Investigator Relationship Specialty Start Date End Date Yamil Hoyos DO [address] [place] [id number] PCP - General Internal Medicine 03/06/25
--- OUTSIDE RECORDS SUMMARY | 2025-04-24 09:44 | XMS_ITS | Clinical Summary ---
Author Organization [facility] Facility Address [address] [facility] [address] [place] [address] [place] [id number] Care Team Providers Care Inspector Multifocal Lens Name Role Phone Loyd Moore MD Primary Care Provider [phone] Social History Tobacco Use Types Packs/Day Years [...] of 2 - PCV) 1969 Influenza Vaccine (#1) 2025 Hepatitis B Vaccine Aged Out No longe r eligible based on patient's age to complete this topic Insurance Medicare [facility] Care Teams Inspector Multifocal Lens Relationship Specialty Start Date End Date Loyd Moore MD [address] [facility], [address] [place] [address] PCP - General Internal Medicine 11/13/24
--- OUTSIDE RECORDS SUMMARY | 2025-04-24 09:44 | XMS_ITS | Clinical Summary ---
Author Organization [facility] Address [address] [place] [address] Care Team Providers Care Industrial Automation Specialist Name Role Phone Dallin Eubanks MD Primary Care Provider [phone] Allergies Active Allergy Reactions Criticality Noted Date [...] 60 05/11/2024 1:15 PM EDT Temperature 36.7 C (98 F) 05/11/2024 10:30 AM EDT Respiratory Rate 19 [...] - 1-dose 75+ series) 2023 COVID-19 Vaccine (5 - season) 2024 01/15/2022, 06/19/2021, 11/25/2020, Additional history exists Influenza Vaccine (#1) 2025 , 05/25/2022, 05/20/2021, Additional history exists Hepatitis B Vaccines Aged Out No long er eligible based on patient's age to complete this topic RSV Ped < 20 months Aged Out No longe r eligible based on patient's age to complete this topic Medical Devices Implanted Type Area Mail Machine Operator Device Identifier Shelf Expiration Date Model / Serial / Lot Device Clsur DBi Services Flx Pro Aurea 35mm Bsci-Prnt [id number] - [id number] Implanted:Qty: 1 on 05/11/2024 by Chito Cuellar MD at [facility] Left: Chest [employer]ANDEN 01/19/2027 [id number] / / [id number] Advance Directives For more information, please contact: [phone] Documents on File Type Date Recorded 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 Care Teams Industrial Automation Specialist Relationship Specialty Start Date End Date Dallin Eubanks MD [address] [address] PCP - General Internal Medicine 09/14/19
--- OUTSIDE RECORDS SUMMARY | 2025-04-24 09:44 | XMS_ITS | Patient Health Record ---
Author Organization [facility] Address [address] [place], [place] [id number] Care Team Providers Care Category Manager Name Role Phone JESSICA HOLMAN Primary Care Provider LULY MURILLO Unavailable [phone] ALLERGIES Allergen (clinical drug ingredient) Drug/Non Drug Allergy documented on EMR Reaction Allergy Type Onset Date Status hydrochlorothiazide hydroCHLOROthiazide Unknown Drug Aller gy Active lisinopril Lisinopril Unknown Drug Allergy Activ e pantoprazole Protonix Unknown Drug Allergy Acti ve verapamil Verapamil Unknown Drug Allergy Active RESULTS Component Value Reference Range Notes Lipid Panel With LDL/HDL Rat [id number] Reviewed date:03/21/2025 02:47:07 PM Interpretation: Performing Lab:[employer] [facility], [employer] [facility], Phone - [phone], Director - Boaz Notes/Report: Cholesterol, Total 125 100-199 mg/dL Triglycerides 51 0-149 mg/dL HDL Cholesterol 64 >39 mg/dL VLDL Cholesterol Huey 12 5-40 mg/dL LDL Chol Calc ([facility]) 49 0-99 mg/dL LDL Calc Comment: LDL/HDL Ratio 0.8 0.0-3.2 ratio LDL/HDL Ratio Men Women 1/2 Avg.Risk 1.0 1.5 Avg.Risk 3.6 3.2 2X Avg.Risk 6.2 5.0 3X Avg.Risk 8.0 6.1 BMP8+[id number] Reviewed date:03/21/2025 02:46:55 PM Interpretation: Performing Lab:[employer] [facility], [address] [facility], Phone - [phone], Director - [facility] Notes/Report: Glucose 90 70-99 mg/dL BUN 41 8-27 mg/dL Creatinine 1.65 0.57-1.00 mg/dL eGFR 32 >59 mL/min/1.73 BUN/Creatinine Ratio 25 12-28 Sodium 139 134-144 mmol/L Potassium 5.2 3.5-5.2 mmol/L Chloride 108 96-106 mmol/L Carbon Dioxide, Total 16 20-29 mmol/L Anion Gap 15.0 10.0-18.0 mmol/L Calcium 9.1 8.7-10.3 mg/dL Basic Metabolic Panel ([id number] Reviewed date:04/20/2025 05:24:25 PM Interpretation: Performing Lab:Gianna Aguilera, [address] [facility], Phone - [phone], [facility] Notes/Report: Glucose 102 70-99 mg/dL BUN 43 8-27 mg/dL Creatinine 1.64 0.57-1.00 mg/dL eGFR 32 >59 mL/min/1.73 BUN/Creatinine Ratio 26 12-28 Sodium 141 134-144 mmol/L Potassium 5.4 3.5-5.2 mmol/L Chloride 109 96-106 mmol/L Carbon Dioxide, Total 17 20-29 mmol/L Veri fied by repeat analysis Calcium 9.2 8.7-10.3 mg/dL Cologuard Reviewed date:02/21/2025 05:08:39 PM Interpretation: Performing Lab: Notes/Report: Result Comp. Metabolic Panel ([id number] Reviewed date:02/17/2025 09:21:53 AM Interpretation: Performing Lab:Gianna Aguilera, [address] [facility], Phone - [phone], Director - [facility] Notes/Report: Glucose 93 70-99 mg/dL BUN 48 8-27 mg/dL Creatinine 1.93 0.57-1.00 mg/dL eGFR 27 >59 mL/min/1.73 BUN/Creatinine Ratio 25 12-28 Sodium 137 134-144 mmol/L Potassium 5.4 3.5-5.2 mmol/L Chloride 105 96-106 mmol/L Anion Gap 15.0 10.0-18.0 mmol/L Carbon Dioxide, Total 17 20-29 mmol/L Calcium 9.8 8.7-10.3 mg/dL Protein, Total 6.9 6.0-8.5 g/dL Albumin 4.5 3.8-4.8 g/dL Globulin, Total 2.4 1.5-4.5 g/dL Bilirubin, Total 0.5 0.0-1.2 mg/dL Alkaline Phosphatase 62 44-121 IU/L AST (SGOT) 24 0-40 IU/L ALT (SGPT) 19 0-32 IU/L CBC, Platelet, w/o Different [id number] Reviewed date:02/12/2025 06:51:08 AM Interpretation: Performing Lab:[facility] [place], [address], [place], Phone - [phone], Director - [place] Notes/Report: WBC 7.0 3.4-10.8 x10E3/uL RBC 3.58 3.77-5.28 x10E6/uL Hemoglobin 11.0 11.1-15.9 g/dL Hematocrit 34.4 34.0-46.6 % MCV 96 79-97 fL MCH 30.7 26.6-33.0 pg MCHC 32.0 31.5-35.7 g/dL RDW 13.3 11.7-15.4 % Platelets 184 150-450 x10E3/uL NR REASON FOR REFERRAL No Information MEDICATIONS Medication SIG (Take, Route, Frequency, Duration) Notes Start Date End Date Status Carvedilol 25 MG 1 tablet with food O rally Twice a day for 30 day(s) Active Vitamin D 50 MCG (1999 UT) 1 tablet Oral ly Once a day for 30 day(s) Active Spironolactone 25 MG 1 tablet Orally Onc [...] once a day for 30 day(s) Active SOCIAL [...] W/U Status Risk SNOMED Code Notes Problem Paroxysmal atrial fibrillation (I48.0) Active confirmed 314532615 Problem LVH (left ventricular hypertrophy) (I51.7) Active confirmed 98835772 Problem History of DVT (deep vein thrombosis) (Z86.718) Active confirmed 782232028 Problem Nonrheumatic aortic valve insufficiency (I35.1) Active confirmed 583279052 Problem Atrial fibrillation, unspecified type (I48.91) Active confirmed 66402023 Problem Postmenopausal osteoporosis (M81.0) Active confirmed 485380144 Problem LBBB (left bundle branch block) (I44.7) Active confirmed 09167429 Problem Cardiac pacemaker (Z95.0) Active confirmed 820007740 Problem Atherosclerosis of [place] coronary artery of [place] heart without angina pectoris (I25.10) Active confirmed 825008075 Problem Dyslipidemia (E78.5) Active confirmed 3 53719373 Problem Cerebral infarction, unspecified mechanism (I63.9) Active confirmed 518844336 Problem Chronic congestive heart failure, unspecified heart failure type (I50.9) Active confirmed 11306361 Problem Persistent atrial fibrillation (I48.19) Active confirmed 582540374 Problem Well-controlled hypertension (I10) Active confirmed 731631007 Problem Gastroesophageal reflux disease, unspecified whether esophagitis present (K21.9) Active confirmed 167472460 Problem Heart failure with reduced left ventricular function (I50.20) Active confirmed 86280112 VITAL SIGNS Blood pressure diastolic 82 mm Hg 03/19/2025 Height 66 in 03/19/2025 Blood pressure systolic 146 mm Hg 03/19/2025 Weight 173.6 lbs 03/19/2025 BMI 28.02 kg/m2 03/19/2025 Encounters Encounter Location Date Provider Diagnosis [facility] [address] [place] [address] 05/22/2024 LULY MURILLO [facility] [address] [place] [address] 06/26/2024 LULY MURILLO [facility] [address] [place] [address] 11/28/2024 LULY MURILLO [facility] [address] [place] [address] 11/28/2024 JESSICA HOLMAN [facility] [address] [place] [address] 11/28/2024 JESSICA HOLMAN [facility] [address] [place] [phone] 01/30/2025 JESSICA HOLMAN [facility] [address] [place] [phone] 02/01/2025 JESSICA HOLMAN [facility] [address] [place], [place] [phone] 02/09/2025 JESSICA HOLMAN Paroxysmal atrial fibrillation I48.0 ; Atherosclerosis of [place] coronary artery of [place] heart without angina pectoris I25.10 ; Screening for deficiency anemia Z13.0 and Colon cancer screening Z12.11 [facility] [address] [place] [address], [phone] 02/09/2025 JESSICA HOLMAN [facility] [place] [phone] 02/09/2025 JESSICA HOLMAN [facility] [address] [place], [place] [phone] 03/06/2025 JESSICA HOLMAN [facility] [place] [phone] 03/19/2025 JESSICA HOLMAN Dyslipidemia E78.5 ; Elevated serum creatinine R79.89 and Paroxysmal atrial fibrillation I48.[address] [address] 03/19/2025 JESSICA HOLMAN ASSESSMENTS Encounter Date Diagnosis Assessment Notes Treatment Notes Treatment Clinical Notes Section Notes 02/09/2025 Paroxysmal atrial fibrillation (ICD-10 - I48.0) stable on cv regimen periodic CV f/y She will call cardiology as ANG Ambriz was llotammy for cardiac clearance for upper / lower endoscopy 02/09/2025 Atherosclerosis of [place] coronary artery of [place] heart without angina pectoris (ICD-10 - I25.10) stable on cv regimen 03/19/2025 Elevated serum creatinine (ICD-10 - R79.89) 03/19/2025 Dyslipidemia (ICD-10 - E78.5) 02/09/2025 Screening for deficiency anemia (ICD-10 - Z13.0) 03/19/2025 Paroxysmal atrial fibrillation (ICD-10 - I48.0) stable on cv regimen 02/09/2025 Colon cancer screening (ICD-10 - Z12.11) cologuard form completed for fax ti Exact sciencxes and copy to pt to call in 3 wks if not heard from them PLAN OF TREATMENT Next Appt Details Provider Name:JESSICA HOLMAN, 05/08/2025 10:20:00 AM, [address] [place], [address], Insurance Providers Payer Name Payer Address Payer Phone Subscriber Number Group Number Insured Name Patient Relationship to Insured Coverage Start Date Coverage End Date MEDICARE [employer] [address] [place] [address] [id number] MANOJ FLORES Self - patient is the insured [employer] [address] [place] [address] [phone] [id number] MANOJ FLORES Self - patient is the insured MEDICAL (GENERAL) HISTORY Medical History History ICD Code Colonoscopy--02/11/05--nl--Dr. Duenas migraine headache heart disease hypertension heart attack--10/16/09 A-fib anemia - labs 6.7.10 - H/H 1 1.7/36.3, mcv 93; 9.8.10 - H/H 10.9/32.2, mcv 90; 9.10.10 - H/H 10.9/32.2, mcv 90, plt 164, retic ct 1.1, alk phos 130, ast/alt 49/57, folic acid 11.5, pending vit b12, NL iron/ferritin/tsh Anemia Blood Clots High Cholestoerol GERD Headaches High Blood Pressure Migranes Ostepporosis Surgical History Surgery Date(Month/Year) Watchman 05/23 Pacemaker 12/2019 angioplasty Hospitalization History Reason Date(Month/Year) Heart attack--[facility] 10/09 Small stroke 2023. [facility] DVT 2023
--- OUTSIDE RECORDS SUMMARY | 2025-04-24 09:44 | XMS_ITS ---
Author Name [facility] Organization Unknown Results Test Name/Text Value Interpretation Date Range Source ABO+RH GP BLD B POSITIVE Normal 05/11/2024 [facility] BLOOD BANK CMNT PATIENT-IMP Testing performed at [facility], [address] [place] [address] [id number], Kyara Ballard MD Automotive Service Writer, [facility] [id number] Normal 05/11/2024 [facility] GLUCOSE BLDC GLUCOMTR MCNC 85.0 mg/dL Normal 05/11/2024 70 - 199 [facility] BLOOD BANK CMNT PATIENT-IMP Testing performed at [facility], [address] [place] [address] [id number], Kyara Ballard MD Automotive Service Writer, [facility] [id number] Normal 05/11/2024 [facility] ABO+RH GP BLD B POSITIVE Normal 05/11/2024 [facility] BLD GP AB SCN SERPL QL NEGATIVE Normal 05/11/2024 [facility] INR PPP 3.4 Above high normal 05/11/2024 0.8 - 1.1 C [facility] PT TIME PPP 40.1 sec Above high normal 05/11/2024 10.5 - 13 .3 [facility] INR PPP 1.1 Normal 02/15/2024 0.8 - 1.1 [facility] PT TIME PPP 13.7 sec Above high normal 02/15/2024 10.5 - 13 .3 [facility] History of Medication Use Medication Directions Dispensed Refills Start Date End Date Stat us Diovan 320 mg tablet Take 1 tablet (320 mg total) by mouth 1 (one) time each day. 02/22/2025 active acetaminophen (TYLENOL) tablet 650 mg 650 mg, Oral, Every 6 hours PRN, mild pain (1-3), Starting on Whitney 05/11/24 at 0913, PACU/Phase 1 05/11/2024 active dexamethasone (DECADRON) injection 4 mg 4 mg, Intravenous, Once as needed, other, nausea, vomiting, Starting on Whitney 05/11/24 at 0913, For 1 dose, PACU/Phase 1Administer 2nd unless given in the OR if zofran is ineffective and patient continues to be symptomatic. 05/11/2024 active dimenhyDRINATE (DRAMAMINE) injection 25 mg 25 mg, Intravenous, Once as needed, nausea, Nausea, vomiting, Starting on Whitney 05/11/24 at 0913, For 1 dose, PACU/Phase 1Administer 3rd unless given in the OR if zofran and decadron are ineffective and patient continues to be symptomatic. INTRAMUSCULAR: No dilution required INTRAVENOUS: Must dilute 05/11/2024 active HYDROmorphone (DILAUDID) injection 0.2 mg 0.2 mg, Intravenous, Every 15 min PRN, moderate pain (4-6), Starting on Whitney 05/11/24 at 0913, PACU/Phase 1FOR PACU USE ONLY. If unable to take by mouth. Do not exceed 2 mg. 05/11/2024 active meperidine (DEMEROL) 25 MG/ML injection 12.5 mg 12.5 mg, Intravenous, Every 30 min PRN, shivering not due to postoperative hypothermia., Starting on Whitney 05/11/24 at 0913, For 2 doses, PACU/Phase 1May repeat x 1 in 30 minutes. 05/11/2024 active amLODIPine (NORVASC) tablet 5 mg Take 5 mg by mouth daily. active carvediloL (COREG) 6.25 mg tablet Take 1 tablet (6.25 mg total) by mouth 2 (two) times a day with meals. active cholecalciferol (VITAMIN D-3) 25 mcg (1,000 unit) tablet Take 4 tablets (4,000 Units total) by mouth 1 (one) time each day. active Cholecalciferol (VITAMIN D) 50 MCG (1999 UT) tablet Take 2,000 Units by mouth daily. active Cholecalciferol (VITAMIN D) 50 MCG (1999 UT) tablet Take 2,000 Units by mouth daily. active clopidogrel (PLAVIX) 75 MG tablet Take 75 mg by mouth daily. active dapagliflozin propanediol (Farxiga) 10 mg tablet Take 1 tablet (10 mg total) by mouth 1 (one) time each day. active denosumab (Prolia) 60 mg/mL syringe syringe Inject 1 mL (60 mg total) under the skin every 6 (six) months. active Diclofenac Sodium 1 % GEL topical Place onto the skin. Right hip active DICLOFENAC SODIUM TOP Place on the skin if needed. Diclofenac Sodium 1 % Gel-Apply 1 Int'l Units topically as needed. - Topical active furosemide (LASIX) 20 mg tablet Take 1 tablet (20 mg total) by mouth 1 (one) time each day. active metoprolol tartrate (LOPRESSOR) 25 MG tablet Take 25 mg by mouth 2 (two) times a day. active nitroglycerin (NITROSTAT) 0.[address] 1 Tab under the tongue as needed for Chest pain. - Sublingual active pantoprazole (PROTONIX) 20 mg EC tablet Take 1 tablet (20 mg total) by mouth 1 (one) time each day before breakfast. Do not crush, chew, or split. active rivaroxaban (Xarelto DVT-PE Treat 30d Start) starter pack Take by mouth. Take 1 tablet (15 mg) by mouth 2 (two) times a day with meals for 21 days. Then take 1 tablet (20 mg) by mouth 1 (one) time each day with dinner. active rivaroxaban (XARELTO) 15 mg tablet Take 1 tablet (15 mg total) by mouth 1 (one) time each day with dinner. Take with food. active rosuvastatin (CRESTOR) 40 mg tablet Take 1 tablet (40 mg total) by mouth 1 (one) time each day. active rosuvastatin (CRESTOR) tablet 40 mg Take 40 mg by mouth daily. active spironolactone (ALDACTONE) 25 mg tablet Take 1 tablet (25 mg total) by mouth 1 (one) time each day. active sucralfate (CARAFATE) 1 gram tablet Take by mouth 2 (two) times a day. active valsartan (DIOVAN) tablet 320 mg Take 1 tablet (320 mg total) by mouth daily. active Allergies Allergen Reaction Severity Comment Documented Date Source Status VERAPAMIL NAUSEA ONLYOTHER (SEE COMMENTS) Upset stomach 07/30/2020 [facility] active LISINOPRIL COUGH cough 10/30/2019 [facility] active HYDROCHLOROTHIAZIDE RASH [facility] Problems Problem Status Onset Date Problem Type Date of Resolution Source Nonrheumatic tricuspid valve regurgitation active 2024-07-20 ProblemAct [facility] Cough active 2024-06-13 ProblemAct [facility] Postural dizziness with presyncope active 2024-06-13 ProblemAct [facility] Nonrheumatic aortic valve regurgitation active 2024-06-13 ProblemAct [facility] Chronic venous insufficiency active 2024-06-13 ProblemAct [facility] HTN (hypertension) active 2024-06-13 ProblemAct [facility] Occlusion of middle cerebral artery active 2024-06-13 ProblemAct [facility] PAH (pulmonary artery hypertension) ([facility] V24, [facility] V28) active 2024-07-20 ProblemAct [facility] Mixed hyperlipidemia active 2024-06-13 ProblemAct [facility] Coronary arteriosclerosis active 2024-06-13 ProblemAct [facility] Encounter for adjustment or management of cardiac device active EncounterDiagnosisAct [facility] DVT (deep venous thrombosis) ([facility] V24, [facility] V28) active 2024-11-23 ProblemAct [facility] Nonrheumatic mitral valve regurgitation active 2024-07-20 ProblemAct [facility] Permanent atrial fibrillation ([facility] V24, [facility] V28) active 2024-07-20 ProblemAct [facility] Presence of Watchman left atrial appendage closure device active 2024-07-10 ProblemAct [facility] CHF (congestive heart failure) ([facility] V24, [facility] V28) active 2024-11-23 ProblemAct [facility] Edema active 2024-06-13 ProblemAct [facility] Abnormality of left atrial appendage active 2019-10-30 ProblemAct [facility] Persistent atrial fibrillation active 2019-10-30 ProblemAct [facility] Paroxysmal atrial fibrillation (HCC) active EncounterDiagnosisAct [facility] Atrial fibrillation active 2024-05-11 ProblemAct [facility] Family history of hypercoagulable state active 2019-10-30 ProblemAct [facility] Presence of Watchman left atrial appendage closure device active 2024-05-11 ProblemAct [facility] Longstanding persistent atrial fibrillation (HCC) active [facility]DiagnosisAct [facility] Immunizations Vaccine Date Source Lot Number Status Pfizer (ages 12 & older) VILLA S-CoV-2 COVID-19, mRNA, LNP-S, katie-sucrose, preservative free 01/15/2022 [facility] [id number] completed Pfizer SARS-CoV-2 COVID-19, mRNA, LNP-S, preservative free 06/19/2021 [facility] [id number] completed Pfizer SARS-CoV-2 COVID-19, mRNA, LNP-S, preservative free 11/25/2020 [facility] [id number] completed Pfizer SARS-CoV-2 COVID-19, mRNA, LNP-S, preservative free 11/03/2020 [id number] completed Encounters Encounter Type Encounter Reason Primary Diagnosis Location Date Inpatient Paroxysmal atrial fibrillation Paroxysmal atrial [place] [facility] [place] Longstanding persistent atrial fibrillation Longstanding persistent atrial fibrillation [facility] 02/15/2024 Care Team Organization Name Specialty Phone Email Start Date End Da te [facility] [place] [facility] [facility] 02/15/2024 03/13/2025 [facility] 01/28
--- OUTSIDE RECORDS SUMMARY | 2025-04-24 09:44 | XMS_ITS | Encounter Summary ---
Author Organization [facility] Address [address] [place] [address] Care Team Providers Care Profile Shaper Operator Name Role Phone Romain Yamil Jacobo DO Primary Care Provider [phone] Reason for Visit * Reason Onset Date Comments Results 04/04/2025 Labs Encounter Details Date Type Department Care Team (Late st Contact Info) Description 04/04/2025 Telephone [facility] [address] [place] [address] Rita Valdez NP [address] [place] [id number] Social History Tobacco Use Types Packs/Day Years [...] AM EST documented as of this encounter Progress Notes * Yue Palma MA - 04/04/2025 3:09 PM EDT I spoke with Jessica, she has not been taking either of the meds. I will send her the Low Potassium diet info via [employer]. I am including the instructions to LINK accounts. Would you like her to repeat labs? She said she stopped taking the Farxiga the last time she talked to you. Furosemide, you had her hold it for a week and she just never resumed. She is not having any swelling/abx weight gain, or SOB. * Yue Palma MA - 04/04/2025 3:04 PM EDT ----- Message from Marylin Valdez NP sent at 04/04/2025 11:03 AM EDT ----- BUN/Control Valve Mechanic K+ again elevated - would you please call pt - confirm med list. If she is taking both Farxiga and Lasix - have her stop the Lasix. If she is only taking Farxiga - have her hold this. If she is only taking Lasix have her hold. Have her minimized dietary items high in potassium - let me know if you have any questions - thank you! documented in this encounter Plan of Treatment Upcoming Encounters Date Type Department Care Team (Late st Contact Info) Description 12/10/2025 8:30 AM EDT Ancillary Procedure [facility] [address] [facility] [address] [place] [address] documented as of this encounter Visit Diagnoses Not on filedocumented in this encounter Discontinued Medications Medication Sig Discontinue Reason Start Date End Da te dapagliflozin propanediol (Farxiga) 10 mg tablet Take 1 tablet (10 mg total) by mouth 1 (one) time each day. Discontinued by another clinician 04/04/2025 rivaroxaban (Xarelto DVT-PE Treat 30d Start) starter pack Take by mouth. Take 1 tablet (15 mg) by mouth 2 (two) times a day with meals for 21 days. Then take 1 tablet (20 mg) by mouth 1 (one) time each day with dinner. Dose adjustment 04/04/2025 sucralfate (CARAFATE) 1 gram tablet Take by mouth 2 (two) times a day. 04/04/2025 rivaroxaban (Xarelto DVT-PE Treat 30d Start) starter pack Take by mouth. Take 1 tablet (15 mg) by mouth 2 (two) times a day with meals for 21 days. Then take 1 tablet (20 mg) by mouth 1 (one) time each day with dinner. Dose adjustment 04/04/2025 nitroglycerin (NITROSTAT) 0.[address] 1 Tab under the tongue as needed for Chest pain. - Sublingual 04/04/2025 cholecalciferol (VITAMIN D-3) 25 mcg (1,000 unit) tablet Take 4 tablets (4,000 Units total) by mouth 1 (one) time each day. 04/04/2025 alendronate (FOSAMAX) 70 mg tablet Take 1 tablet (70 mg total) by mouth every 7 (seven) days. 05/10/2024 04/04/2025 furosemide (LASIX) 20 mg tablet Take 1 tablet (20 mg total) by mouth 1 (one) time each day. 04/04/2025 documented as of this encounter Historical Medications * This list may reflect changes made after this encounter. rivaroxaban (XARELTO) 15 mg tablet Take 1 tablet (15 mg total) by mouth 1 (one) time each day with dinner. Take with food. added in this encounter Care Teams Profile Shaper Operator Relationship Specialty Start Date End Date Yamil Hoyos DO [address] [place] [address] PCP - General Internal Medicine 03/06/25 documented as of this encounter
== END 2025-04-24 10:11 | disposition home or self-care (01) ==
PROVIDERS: PCP Internal Medicine; Visit Provider Internal Medicine Nephrology
DX: N18.31 Chronic kidney disease, stage 3a (principal); I10 Essential (primary) hypertension; E87.20 Acidosis, unspecified
CPT/HCPCS: 99214

== ENCOUNTER → 2025-04-24 09:19 | Outpatient (BNVA) | payer MEDICARE, SELFPAY | PROVIDERS: Visit Provider Internal Medicine Nephrology | DX: I12.9 Hypertensive chronic kidney disease with stage 1 through stage 4 chronic kidney disease, or unspecified chronic kidney disease (principal); N18.31 Chronic kidney disease, stage 3a; E87.20 Acidosis, unspecified | CPT/HCPCS: 99212 ==

== ENCOUNTER 2025-08-02 09:19 | Outpatient (AMB) | payer MEDICARE, SELFPAY ==
--- OUTSIDE RECORDS SUMMARY | 2025-03-19 06:46 | XMS_ITS ---
Author Organization [facility] Address [address] [place] [address] Care Team Providers Care Senior Linux Unix Administrator Name Role Phone JESSICA HOLMAN Primary Care Provider REASON FOR VISIT nephrology Encounters Encounter Location Date Provider Diagnosis [facility] [address] [place] [address] 03/19/2025 JESSICA HOLMAN PLAN OF TREATMENT Next Appt Details Provider Name:JESSICA HOLMAN, 09/11/2025 10:40:00 AM, [address] [place], [phone],
--- OUTSIDE RECORDS SUMMARY | 2025-05-08 05:20 | XMS_ITS ---
Author Organization [facility] Address [address] [place] [address] Care Team Providers Care Management Aide Name Role Phone JESSICA HOLMAN Primary Care Provider ALLERGIES Allergen (clinical drug ingredient) Drug/Non Drug Allergy documented on EMR Reaction Allergy Type Onset Date Status hydrochlorothiazide hydroCHLOROthiazide Unknown Drug Aller gy Active lisinopril Lisinopril Unknown Drug Allergy Activ e pantoprazole Protonix Unknown Drug Allergy Acti ve verapamil Verapamil Unknown Drug Allergy Active REASON FOR VISIT 6wk f./u, Pt wants flu shot today MEDICATIONS Medication SIG (Take, Route, Frequency, Duration) Notes Start Date End Date Status Diovan 320 MG 1 tab(s) orally once a day for 30 day(s) Active Xarelto 20 MG 1 tablet with food O rally Once a day for 90 days Active Voltaren 1 % as directed External ly as needed Active Rosuvastatin Calcium 40 MG 1 tablet Oral ly Once a day for 30 day(s) Active Spironolactone 25 MG 1 tablet Orally Onc e a day for 30 day(s) Active Vitamin D 50 MCG (1999) 1 tablet Oral ly Once a day for 30 day(s) Active Furosemide 20 MG 1 tablet Orally thre e days a week Active Carvedilol 6.25 MG 1 tablet with food O rally Twice a day Active PROBLEMS Problem Type ICD Code Onset Dates Problem Status W/U Status Risk SNOMED Code Notes Problem Stage 3a chronic kidney disease (N18.31) Active confirmed 168873806 Problem Coronary artery disease involving kaibab coronary artery of kaibab heart without angina pectoris (I25.10) Active confirmed [id number] VITAL SIGNS Height 66 in 05/08/2025 Weight 164.8 lbs 05/08/2025 Blood pressure systolic 122 mm Hg 05/08/20 25 Blood pressure diastolic 82 mm Hg 025 BMI 26.60 kg/m2 05/08/2025 Encounters Encounter Location Date Provider Diagnosis [facility] [address] [place] [phone] 05/08/2025 JESSICA HOLMAN Elevated serum creatinine R79.89 ; Coronary artery disease involving kaibab coronary artery of kaibab heart without angina pectoris I25.10 and Stage 3a chronic kidney disease N18.31 ASSESSMENTS Encounter Date Diagnosis Assessment Notes Treatment Notes Treatment Clinical Notes Section Notes 05/08/2025 Elevated serum creatinine (ICD-10 - R79.89) 05/08/2025 Coronary artery disease involving kaibab coronary artery of kaibab heart without angina pectoris (ICD-10 - I25.10) she will call cardiology nurse to get report on recent cardiac test 05/08/2025 Stage 3a chronic kidney disease (ICD-10 - N18.31) PLAN OF TREATMENT Treatment Notes Assessment Notes Coronary artery disease invo lving kaibab coronary artery of kaibab heart without angina pectoris she will call cardiology nurse to get report on recent cardiac test Next Appt Details Follow Up: flu shot with hu se, f/uJanuary f/u, Reason: Provider Name:JESSICA HOLMAN, 09/11/2025 10:40:00 AM, [address] [place], [address], History and Physical Notes * HPI (History of Present Illness) Category Sub-Category Detail Notes Category Not es General f/u states coronary calcium score and appt 06/25. She reports seeing renale late March on furosemide 3 x/wkand bicarb. States did dye test cardiology and not called yet . Physical Examination Category Sub-Category Detail Notes Section Note s EXTREMITIES Edema: none CHEST Breath sounds: clear to auscultation HEART Rhythm: regular Heart sounds: Normal S1 & S2, no S 3/S4 NEUROLOGICAL Gait: normal Mental status: Alert and oriented t o person, place, time Speech normal GENERAL General Appearance: well nourish ed, no apparent distress, well developed PSYCHOLOGY Grooming: appropriate Eye contact: normal Mood: pleasant Affect appropriate
--- OUTSIDE RECORDS SUMMARY | 2025-05-08 06:15 | XMS_ITS ---
Author Organization [facility] Address [address] [place] [address] Care Team Providers Care Elevator Supervisor Name Role Phone RIVER JESSICA Primary Care Provider [place], NURSING [facility] [phone] REASON FOR VISIT 36/flu shot IMMUNIZATIONS Vaccine Route Administration Date Status Comme nts Influenza, Fluzone HD 65+ IM Intramuscular 05/08/2025 Admi nistered Encounters Encounter Location Date Provider Diagnosis [facility] [address] [place] [address] 05/08/2025 NURSING [place] Encounter for immunization Z23 ASSESSMENTS Encounter Date Diagnosis Assessment Notes Treatment Notes Treatment Clinical Notes Section Notes 05/08/2025 Encounter for immunization (ICD-10 - Z23) HD Influenza vaccine administered. Patient counseled and VIS sheet given. PLAN OF TREATMENT Treatment Notes Assessment Notes Encounter for immunization HD Influenza vaccine administered. Patient counseled and VIS sheet given. Next Appt Details Follow Up: prn, Reason: Provider Name:JESSICA HOLMAN, 09/11/2025 10:40:00 AM, [address] [place], [address],
--- OUTSIDE RECORDS SUMMARY | 2025-05-08 08:58 | XMS_ITS ---
Author Organization [facility] Address [address] [place] [address] Care Team Providers Care Grade Tamper Name Role Phone RIVER JESSICA Primary Care Provider [phone] REASON FOR VISIT Medication Correction MEDICATIONS Medication SIG (Take, Route, Frequency, Duration) Notes Start Date End Date Status Xarelto 20 MG 1 tablet with food O rally Once a day for 90 days Active Diovan 320 MG 1 tab(s) orally once a day for 30 day(s) Active Voltaren 1 % as directed External ly as needed Active Rosuvastatin Calcium 40 MG 1 tablet Oral ly Once a day for 30 day(s) Active Spironolactone 25 MG 1 tablet Orally Onc e a day for 30 day(s) Active Sodium Bicarbonate 650 MG as directed Orally Active Vitamin D 50 MCG (1999 UT) 1 tablet Oral ly Once a day for 30 day(s) Active Furosemide 20 MG 1 tablet Orally thre e days a week Active Carvedilol 6.25 MG 1 tablet with food O rally Twice a day Active Encounters Encounter Location Date Provider Diagnosis [facility] [address] [place] [address] 05/08/2025 JESSICA HOLMAN PLAN OF TREATMENT Next Appt Details Provider Name:JESSICA HOLMAN, 09/11/2025 10:40:00 AM, [address] [place], [address],
--- OUTSIDE RECORDS SUMMARY | 2025-05-31 10:07 | XMS_ITS ---
Author Organization [facility] Address [address] [place] [address] Care Team Providers Care Medication Nurse Name Role Phone JESSICA HOLMAN Primary Care Provider REASON FOR VISIT Xrelto rx MEDICATIONS Medication SIG (Take, Route, Frequency, Duration) Notes Start Date End Date Status Xarelto 20 MG 1 tablet with food O rally Once a day for 90 days Active Encounters Encounter Location Date Provider Diagnosis [facility] [address] [place] [phone] 05/31/2025 JESSICA HOLMAN PLAN OF TREATMENT Medication Medication Name Sig Start Date Stop Date Notes Xarelto 20 MG 1 tablet with food O rally Once a day for 90 days Next Appt Details Provider Name:JESSICA HOLMAN, 09/11/2025 10:40:00 AM, [address] [place], [address],
--- OUTSIDE RECORDS SUMMARY | 2025-06-08 03:26 | XMS_ITS ---
Author Organization [facility] Address [address] [place] [address] Care Team Providers Care Education Director Name Role Phone JESSICA HOLMAN Primary Care Provider [phone] REASON FOR VISIT bleeding scratch Encounters Encounter Location Date Provider Diagnosis [facility] [address] [place] [address] 06/08/2025 JESSICA HOLMAN PLAN OF TREATMENT Next Appt Details Provider Name:JESSICA HOLMAN, 09/11/2025 10:40:00 AM, [address] [place], [address],
--- OUTSIDE RECORDS SUMMARY | 2025-06-08 07:40 | XMS_ITS ---
Author Organization [facility] Address [address] [place] [address] Care Team Providers Care Singer Songwriter Name Role Phone RIVER, JESSICA Primary Care Provider ERAZO, JOHN Perez [phone] ALLERGIES Allergen (clinical drug ingredient) Drug/Non Drug Allergy documented on EMR Reaction Allergy Type Onset Date Status hydrochlorothiazide hydroCHLOROthiazide Unknown Drug Aller gy Active lisinopril Lisinopril Unknown Drug Allergy Activ e pantoprazole Protonix Unknown Drug Allergy Acti ve verapamil Verapamil Unknown Drug Allergy Active REASON FOR VISIT Bleeding Scratch From Dog MEDICATIONS Medication SIG (Take, Route, Frequency, Duration) Notes Start Date End Date Status Xarelto 20 MG 1 tablet with food O rally Once a day for 90 days Active Diovan 320 MG 1 tab(s) orally once a day for 30 day(s) Active Rosuvastatin Calcium 40 MG 1 tablet Oral ly Once a day for 30 day(s) Active Voltaren 1 % as directed External ly as needed Active Spironolactone 25 MG 1 tablet Orally Onc e a day for 30 day(s) Active Sodium Bicarbonate 650 MG as directed Orally Active Vitamin D 50 MCG (1999 [place]) 1 tablet Oral ly Once a day for 30 day(s) Active Carvedilol 6.25 MG 1 tablet with food O rally Twice a day Active Furosemide 20 MG 1 tablet Orally thre e days a week Active SOCIAL HISTORY Tobacco Use: Social History Observation Description Date Details (start date - stop date) Former Smoker NA - NA Sex Assigned At : Social History Observation Description Sex Assigned At Unknown Smoking Question Answer Notes Are you a: former smoker How long has it been since you last smoked? > 10 years VITAL SIGNS Height 66 in 06/08/2025 Weight 167.8 lbs 06/08/2025 Blood pressure systolic 124 mm Hg 06/08/20 25 Blood pressure diastolic 80 mm Hg 025 BMI 27.08 kg/m2 06/08/2025 Encounters Encounter Location Date Provider Diagnosis [facility] [address] [place] [address] 06/08/2025 JOHN ERAZO Scratch of wrist, right, initial encounter S60.811A ASSESSMENTS Encounter Date Diagnosis Assessment Notes Treatment Notes Treatment Clinical Notes Section Notes 06/08/2025 Scratch of wrist, right, initial encounter (ICD-10 - S60.811A) Wound care as discussed. Reviewed appropriate treatment for bleeding while on blood thinners. Watch for signs of infection (fever, redness, swelling, increased warmth, red streaks, drainage) and follow-up or go to ER if develop. Follow-up if no improvement in 2 weeks, sooner if needed or worsening. PLAN OF TREATMENT Treatment Notes Assessment Notes Scratch of wrist, right, initial encount er Wound care as discussed. Reviewed appropriate treatment for bleeding while on blood thinners. Watch for signs of infection (fever, redness, swelling, increased warmth, red streaks, drainage) and follow-up or go to ER if develop. Follow-up if no improvement in 2 weeks, sooner if needed or worsening. Next Appt Details Follow Up: Wound care as dis cussed. Follow-up if no improvement in 2 weeks, sooner if worsening. Watch for signs of infection., Reason: Provider Name:JESSICA HOLMAN, 09/11/2025 10:40:00 AM, [address] [place], [phone], Progress Notes * Examination Category Sub-Category Detail Notes Category Not es General Examination Neck: supple, no lymphadeno nguyen Extremities: Right upper extremit y dorsal aspect of the wrist with a 5 mm V shaped abrasion full-thickness with no active bleeding and some scab formation. No tenderness. No increased warmth. No erythema. No drainage or discharge. No lymphangitic streaking. Full range of motion of the wrist. Clothing Supervisor strength is 5/5. Sensations intact to light touch. General Appearance no apparent distress , pleasant Neuro alert and oriented x 3, CN 2-12 intact, motor 5/5 bilaterally proximally and distally in all 4 extremities, sensation light touch intact, no focal abnormality History and Physical Notes * HPI (History of Present Illness) Category Sub-Category Detail Notes Category Not es General Patient called earlier with following complaint: Patient states her sons dog scratched her on Wednesday, June 02, 2025, on a purple spot she has on her right arm and the scratch bled for three days. Patient states she had finally gotten the scratch to stop bleeding. Patient states she used Tegaderm patch that she had left over. Patient states the scratch had started to bleed again at night. Patient Denies COVID symptoms: no pending COVID Test, no known exposure. In office patient notes above complaints. Patient is on Xarelto due to A-fib and has frequent issues with ecchymoses from bumping her extremities. States her son's dog scratched her over one of the ecchymotic areas. States she did not hold compression for very long and would just kind of keep the area covered but not holding pressure. Finally did stop the bleeding but then notes when she covers it at nighttime and takes the dressing off in the morning and starts to bleed again. She has been using Xeroform and gauze over the area. She has been keeping the area clean. Denies any swelling, increasing redness, increasing warmth, purulent discharge, red streaks or fevers. Not bleeding currently. Last tetanus was in 2021.
--- OUTSIDE RECORDS SUMMARY | 2025-06-22 11:50 | XMS_ITS ---
Author Organization [facility] Address [address] [place] [address] Care Team Providers Care Consumer Science Teacher Name Role Phone JESSICA HOLMAN Primary Care Provider REASON FOR VISIT new Rx from MEDICATIONS Medication SIG (Take, Route, Frequency, Duration) Notes Start Date End Date Status Xarelto 20 MG 1 tablet with food O rally Once a day for 90 days Active Encounters Encounter Location Date Provider Diagnosis [facility] [address] [place] [id number] 06/22/2025 JESSICA HOLMAN PLAN OF TREATMENT Medication Medication Name Sig Start Date Stop Date Notes Xarelto 20 MG 1 tablet with food O rally Once a day for 90 days Next Appt Details Provider Name:JESSICA HOLMAN, 09/11/2025 10:40:00 AM, [address] [place] [address], [phone],
--- NOTE | 2025-08-02 09:40 | HO.NEPHOV_ITS ---
Vital Signs 08/02/25 09:42 Height 5 ft 8 in Weight 168 lb 4 oz BMI 25.6 BP 124/70 Blood Pressure Location Lt brachial Position Sitting Intake Visit Reasons: 3mon f/u w/labs-Conf Factory Engineer Required: No Accompanied by: Spouse Allergies hydrochlorothiazide Allergy (Verified 08/02/25 09:42) Unknown lisinopril Allergy (Verified 08/02/25 09:42) Unknown verapamil Allergy (Verified 08/02/25 09:42) Unknown adhesives Allergy (Uncoded 01/25/25 07:56) Unknown HPI Comments Details: Jessica was seen for F/U CKD and hypertension. She is a delightful 75 year old with H/O hypertension, dyslipidemia, CAD as well as cardiac arrest in 2009. She also has H/O CVA. She has H/O proteinuria. She has no H/O DM. She has some edema. She denies chest pain, SOB, PND or orthopnea. She is not aware of any renal artery stenosis. She denies nausea, vomiting, diarrhea, abdominal pain or orthostatic symptoms. She has no recurrent sore throat, epistaxis, hematuria, photosensitivity, skin rashes, sensori neural deafness. She did not have other complaints at the time of this office visit [facility] Medical History (Updated 08/02/25 @ 09:44 by Phani Lucas MD) Constipation Dyspepsia Cerebral infarction Atrial fibrillation Pacemaker CAD (coronary artery disease) Hyperlipidemia Hypertension Surgical History History of esophagogastroduodenoscopy (EGD) Hx of colonoscopy H/O heart artery stent H/O wrist surgery History of cataract surgery S/P ablation of atrial fibrillation Family History Brother Cancer Heart disease Hypertension Atrial fibrillation Father Heart disease Sister Stroke Hypertension Paternal Grandmother Breast cancer Colon cancer Social History Alcohol intake: current Comment: Wine- Occasionally Patient Tobacco Use Status: Former Tobacco user Review of Systems Const All systems reviewed & are unremarkable except as noted in HPI and below Physical Exam Const General: comfortable and no acute distress Orientation/consciousness: patient oriented x3 HEENT Head: Yes normocephalic Mouth: Normal oral and palatal mucosa present Eyes EOM: EOMs intact bilaterally Neck Neck: Yes supple Resp Auscultation: clear to auscultation bilaterally Cardio Jugular venous distension: no JVD Rate: regular rate GI Palpation (GI): Soft to palpation Auscultation: normal bowel sounds General: Yes no CVA tenderness Back/Spine/Pelvis Back: no CVA tenderness Skin General skin exam: no rashes or lesions noted Neuro General: patient oriented x3 and moves all extremities Extrem General: Yes no pedal edema Assessment & Plan Assessment & Plan (1) CKD stage 3a, GFR 45-59 ml/min: Code(s): N18.31 - Chronic kidney disease, stage 3a Category: Medical (2) Hypertension: Code(s): I10 - Essential (primary) hypertension Category: Medical Qualifiers: Hypertension type: primary hypertension Qualified Code(s): I10 - Essential (primary) hypertension (3) Proteinuria: Code(s): R80.9 - Proteinuria, unspecified Category: Medical Qualifiers: Proteinuria type: other Qualified Code(s): R80.8 - Other proteinuria Plan 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 Her renal function has been stable. She has H/O hyperkalemia but her K is normal now. She has been on ARB along with low K diet. She has H/O metabolic acidosis and has been on PO NaHCO3 650 mg daily along with lasix every other day. She will need to restart Farxiga at next visit. She has H/O CAD as well as CVA. She has H/O proteinuria. She may need Doppler of renal arteries. She should not take excess Na and avoid NSAID's. I did not make any other medication changes but further management is pending evolving data. Answered all questions. Orders: Orders Protein Creatinine Ratio, Ur Today I10 - Essential (primary) hypertension, N18.31 - Chronic kidney disease, stage 3a, R80.8 - Other proteinuria Phospholipase A2 Receptor Pnl Today I10 - Essential (primary) hypertension, N18.31 - Chronic kidney disease, stage 3a, R80.8 - Other proteinuria Coding Level of Care Code Est Pt Level 4 (03061) Diagnoses CKD stage 3a, GFR 45-59 ml/min N18.31 Primary hypertension I10 Hypertension type: primary hypertension Other proteinuria R80.8 Proteinuria type: other
[2025-08-02 09:42] VITALS: BP 124/70; BMI 25.6
--- OUTSIDE RECORDS SUMMARY | 2025-08-02 10:20 | XMS_ITS | Clinical Summary ---
Author Organization [facility] Prior to 01/27/25 Address [address] [place] [address] Care Team Providers Care Padded Box Sewer Name Role Phone Dallin Eubanks MD Primary Care Provider [phone] Allergies Active Allergy Reactions Criticality Noted Date [...] mouth every night at bedtime. 0 Active Active Problems Problem Noted Date Diagnosed [...] 1-dose 75+ series) 2023 COVID-19 Vaccine ( season) 2025 01/15/2022, 06/19/2021, 11/25/2020, Additional history exists Influenza Vaccine (#1) 2025 3, 05/25/2022, 05/20/2021, Additional history exists Hepatitis B Vaccines Aged Out No long er eligible based on patient's age to complete this topic RSV Ped < 20 months Aged Out No longe r eligible based on patient's age to complete this topic Medical Devices Implanted Type Area [employer] Inspector Device Identifier Shelf Expiration Date Model / Serial / Lot Device Clsur Watchman Flx Pro Aurea 35mm Bsci-Prnt [id number] - [id number] Implanted:Qty: 1 on 05/11/2024 by Chito Cuellar MD at [facility] [place] [facility] Left: Chest [employer] 01/19/2027 [id number] / / [id number] Advance Directives For more information, please contact: [phone] Documents on File Type Date Recorded Patient Resident Care Manager Expl anation Advance Directive and Living Will 05/11/2024 Latest Code Status on File Code Status Date Activated Date Inactivated Comments Full Code 05/11/2024 9:23 AM 05/11/2024 8:18 PM This code status was ascertained in the following way: discussion with patient . Care Teams Padded Box Sewer Relationship Specialty Start Date End Date Dallin Eubanks MD [address] [id number] PCP - General Internal Medicine 09/14/19
--- OUTSIDE RECORDS SUMMARY | 2025-08-02 10:20 | XMS_ITS | Clinical Summary ---
Author Organization [facility] Address [address] [facility] [address] [place] [id number] Care Team Providers Care Distance Learning Unit Leader Name Role Phone Loyd Moore MD Primary Care Provider [phone] Social History Tobacco Use Types Packs/Day Years [...] age to complete this topic Insurance Medicare [facility] Care Teams Distance Learning Unit Leader Relationship Specialty Start Date End Date Loyd Moore MD [address] [facility], [address] [place] [address] PCP - General Internal Medicine 11/13/24
--- OUTSIDE RECORDS SUMMARY | 2025-08-02 10:22 | XMS_ITS | Clinical Summary ---
Author Organization [address] [place] [address] [place] [address] Phone Care Team Providers Care Vehicle Window Tinter Name Role Phone Yamil Hoyos DO Primary Care Provider [phone] Allergies Active Allergy Reactions Criticality Noted Date Comments Hydrochlorothiazide Rash Low 10/30/2019 Latex 03/06/2015 Lisinopril Cough 10/30/2019 cough Pantoprazole 06/25/2025 Other Reaction(s): Unknown Verapamil Nausea Only 07/30/2020 Upset stomach Medications DICLOFENAC SODIUM TOP Place on the skin if needed. Diclofenac Sodium 1 % Gel-Apply 1 Int'l Units topically as needed. - Topical Active carvediloL (COREG) 6.25 mg tablet Take 1 tablet (6.25 mg total) by mouth 2 (two) times a day with meals. Active Diovan 320 mg tablet Take 1 tablet (320 mg total) by mouth 1 (one) time each day. 90 tablet 1 5 Active rivaroxaban (XARELTO) 15 mg tablet Take 1 tablet (15 mg total) by mouth 1 (one) time each day with dinner. Take with food. Active rosuvastatin (CRESTOR) 40 mg tablet TAKE 1 TABLET BY MOUTH DAILY 90 tablet 2 5 Active furosemide (LASIX) 20 mg tablet Take 1 tablet (20 mg total) by mouth 3 (three) times a week. Active sodium bicarbonate 650 mg tablet Take 1 tablet (650 mg total) by mouth 1 (one) time each day. Active amLODIPine (NORVASC) 5 mg tablet Take 1 tablet (5 mg total) by mouth 1 (one) time each day. 30 each 5 5 07/31/20 26 Active amLODIPine (NORVASC) 2.5 mg tablet Take 1 tablet (2.5 mg total) by mouth 1 (one) time each day. 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 Likely multifactorial with atrial fibrillation and coronary disease. Assessment & Plan (06/25/2025 9:37 AM EDT): Mild cardiomyopathy likely partly due to atrial fibrillation with a rapid ventricular response and partly due to underlying coronary disease. Her LVEF did improve after being placed on medications and having an AV node ablation. Continue to monitor heart function with echocardiogram along with aortic size. DVT (deep venous thrombosis) ([facility] V24, [facility] V28) 11/23/2024 Permanent atrial fibrillation ([facility] V24, [facility] V28) 07/20/2024 Assessment & Plan (06/25/2025 9:36 AM EDT): Permanent atrial fibrillation status post AV node ablation and leadless pacemaker. Pacemaker working well. Paced at 60 bpm. PAH (pulmonary artery hypert ension) ([facility] V24, [facility] V28) 07/20/2024 Nonrheumatic tricuspid valve regurgitation 07/20 Nonrheumatic mitral valve regurgitation 07/20/20 24 Presence of Watchman left atrial appendage closu re device 07/10/2024 Assessment & Plan (06/25/2025 9:36 AM EDT): Successful watchman placement in 2024. Follow-up ANA showed a 2 mm leak with a well-seated device. Unfortunately, she developed a DVT and is continuing on low- dose Xarelto. Mixed hyperlipidemia 06/13/2024 Edema 06/13/2024 Postural dizziness with presyncope 06/13/2024 Cough 06/13/2024 Coronary arteriosclerosis 06/13/2024 Assessment & Plan (06/25/2025 9:34 AM EDT): Stable coronary disease with no active angina. Continue with anticoagulation and will not use antiplatelet therapy while on the anticoagulant. Continue with rosuvastatin and a healthy Mediterranean style diet. Assessment & Plan (07/03/2024 10:33 AM EST): No active angina. Tolerating aspirin, blood pressure lowering medicines and antiplatelet therapy with Plavix. Significant bruising noted. Continues on rosuvastatin with excellent lipid control. Nonrheumatic aortic valve regurgitation 06/13/20 24 Chronic venous insufficiency 06/13/2024 Occlusion of middle cerebral artery 06/13/2024 HTN (hypertension) 06/13/2024 Overview (06/25/2025): Primary hypertension. Lisinopril led to a cough. Verapamil was not tolerated due to abdominal discomfort and constipation. She has an allergy to hydrochlorothiazide. She developed hyperkalemia on spironolactone and Diovan at 320 mg daily. Assessment & Plan (06/25/2025 9:35 AM EDT): I will stop the spironolactone due to the hyperkalemia and recheck a basic metabolic profile. If needed I may add amlodipine or hydralazine for hypertension. I asked the niece to take a log for 1 to 2 weeks in the morning for her blood pressure and to send in through the portal so that we can make any changes based on additional data. Assessment & Plan (07/03/2024 10:34 AM EST): [...] Encounters Date Type Department Care Team Description 07/05/2025 Results Follow-Up [facility] [address] [place] [address] Janis Velázquez PA 07/04/2025 Telephone [facility] - [address] [place] [address] Chito Cuellar MD 06/25/2025 9:00 AM EDT Office Visit [facility] - [address] [place] [address] Chito Cuellar MD Permanent atrial fibrillation (CMS/HCC V24, CMS/HCC V28) (Primary Dx); Coronary arteriosclerosis; Primary hypertension; Presence of Watchman left atrial appendage closure device; Chronic systolic congestive heart failure (CMS/HCC V24, CMS/HCC V28) 06/08/2025 2:25 PM EDT Ancillary Procedure [facility] - [address] [place] [address] 05/31/2025 Telephone [facility] - [address] [place] [address] Chiot Cuellar MD 05/08/2025 Telephone [facility] - [address] [place] [address] Rita Valdez NP from Last 3 Months Immunizations Immunization Administration Dates Next Due Pfizer (ages 12 [...] Sign Reading Time Taken Comments Blood Pressure 150/80 06/25/2025 8:51 AM EDT Pulse 60 06/25/2025 8:51 AM EDT Temperature 36.6 C (97.8 F) 07/10/2024 11:55 AM EST Respiratory Rate 18 07/10/2024 11:55 AM EST Oxygen Saturation 99% 06/25/2025 8:51 AM EDT Inhaled Oxygen Concentration - - Weight 76.2 kg (168 lb) 06/25/2025 8:51 AM EDT Height 172.7 cm (5' 8 ) 06/25/2025 8:51 AM EDT Body Mass Index 25.54 06/25/2025 8:51 AM EDT Plan of Treatment Upcoming Encounters Date Type Department Care Team (Late st Contact Info) Description 12/10/2025 8:30 AM EDT Ancillary Procedure [facility] - [address] [place] [address] Health Maintenance Due Date Last Done Comments Pneumococcal Vaccine: 50+ Years (1 of 2 - PCV) 1969 Falls Risk Assessment 08/06/2022 Hepatitis C Screening 08/06/2022 Osteoporosis Screening (Bone Density Screening) 08/06/2022 Social Influencers of Health Screening 08/06/2022 RSV Immunization Adult Patients (1 - 1-dose 75+ series) 2023 Medicare Annual Wellness Visit 10/15/2023 10/15/2022 Depression Screening 08/30/2024 COVID-19 Vaccine ( season) 2025 01/15/2022, 06/19/2021, 11/25/2020, Additional history exists Hypertension/CHF/CAD Annual BMP Blood Test 07/04/2026 07/04/2025, 04/03/2025, 02/05/2025, Additional history exists Cholesterol Screening (Lipid Panel) 10/06/2029 10/06/2024 DTaP,Tdap,and Td Vaccines (2 - Td or Tdap) 05/23/2032 05/23/2022 Zoster Vaccines Completed 04/10/2024, 01/2024, 07/09/2014 Influenza Vaccine Completed 05/08/2025, , 05/11/2023, Additional history exists HIB Vaccines Aged Out No longer eligi [...] this topic Medical Devices Implanted Type Area Log Snaker Device Identifier Shelf Expiration Date Model / Serial / Lot Medt-Card [id number] Implanted:03/2020 (Quantity not on file) Cardiac Pacemaker [employer] - CARDIAC RHYTH-CRDM [id number] / [id number] / Medt-Card Micra Vr Tcp [id number] Implanted:03/2020 (Quantity not on file) Cardiac Pacemaker [employer] - CARDIAC RHYTH-CRDM MICRA VR TCP / [id number] / Device Clsur Watchman Flx Pro Aurea 35mm Bsci-Prnt [id number] Implanted:Qty : 1 on 05/11/2024 by Chito Cuellar MD Left: Chest [employer] 01/19/2027 [id number] / / [id number] Procedures Procedure Name Priority Date/Time Associated Diagnosis Comments BASIC METABOLIC PANEL Routine 07/04/2025 11:53 AM EST Permanent atrial fibrillation (CMS/HCC V24, CMS/HCC V28) ECG 12-LEAD Routine 06/25/2025 9:38 AM EDT Permanent atrial fibrillation (CMS/HCC V24, CMS/HCC V28) CARDIAC DEVICE CHECK- REMOTE- MURJ Routine 06/08/2025 2:21 PM EDT LIPID PANEL WITH REFLEX TO DIRECT LDL Routine 10/06/2024 9:27 AM EST Essential hypertension, malignant from Last 3 Months or Most Recently Relevant to Health Maintenance Results * (ABNORMAL) Basic metabolic panel (07/04/2025 11:53 AM EST) Glucose 75 70 - 99 mg/dL [facility] Blood Urea Nitrogen (BUN) 31(H) 8 - 27 mg/dL [facility] Creatinine 1.58(H) 0.57 - 1.00 mg/dL [facility] 1 eGFR 34(L) >59 mL/min/1.7 3 [facility] 1 BUN/Creatinine Ratio 20 12 - 28 [facility] 1 Sodium 137 134 - 144 mmol/L [facility] Potassium 4.5 3.5 - 5.2 mmol/L [facility] 1 Chloride 103 96 - 106 mmol/L [facility] 1 Carbon Dioxide 19(L) 20 - 29 mmol/L [facility] 1 Calcium 9.1 8.7 - 10.3 mg/dL [facility] 1 Blood Venous blood specimen / Unknown 07/04/2025 11:53 AM EST 07/04/2025 Narrative [facility] 1 - 07/05/2025 3:06 AM EST Performed at: [facility] [address] [id number] Roll Over Press Operator: Brooke Almaguer MD, Phone: [phone] us Chito Cuellar MD LAB BLOOD ORDERABLES Final Res ult Performing Organization Address [facility] Co de Phone Number [facility] * ECG 12 lead (06/25/2025 9:38 AM EDT) Ventricular Rate ECG 60 BPM GEMUSE Atrial Rate 58 BPM GEMUSE QRS Duration 166 ms GEMUSE Q-T Interval 464 ms GEMUSE QTc 464 ms GEMUSE R [place] -79 degrees GEMUSE T [place] 107 degrees GEMUSE ECG Interpretation Atrial fibrillation Ventricular-pac ed rhythm Abnormal ECG When compared with ECG of 28-NOV-2024 14:37, No significant changes are noted Confirmed by Christophe CUELLAR JOHN ([id number]) on 06/25/2025 10:59:47 AM GEMUSE 06/25/2025 9:06 AM EDT 06/25/2025 10:59 AM EDT us Chito Cuellar MD ECG ORDERABLES Edited Result - Final Performing Organization Address [facility] de Phone Number GEMUSE * Cardiac device check - Remote- MURJ (06/08/2025 2:21 PM EDT) Date Time Interrogation Session [id number] CV DEVICE CHECK Type Interrogation Session Remote CV DEVICE CHECK Implantable Pulse Generator Log Snaker MDT CV DEVICE CHECK Implantable Pulse Generator Type IPG CV DEVICE CHECK Implantable Pulse Generator Model [id number] CV DEVICE CHECK Implantable Pulse Generator Serial Number [id number] CV DEVICE CHECK Implantable Pulse Generator Implant Date 20200105 CV DEVICE CHECK Battery Remaining Longevity 96.0 CV DEVICE CHECK Battery Voltage 2.970 CV D EVICE CHECK Battery SENIOR OPERATIONS MANAGER Trigger 2.558 CV DEVICE CHECK Battery Status Middle of Service CV DEVICE CHECK Lead Channel Sensing Intrinsic Amplitude 11.250 CV DEVICE CHECK Lead Channel Setting Sensing Sensitivity 2.00 CV DEVICE CHECK Lead Channel Impedance Value 530 CV DEVICE CHECK Lead Channel Pacing Threshold Amplitude 0.500 CV DEVICE CHECK Lead Channel Pacing Threshold Pulse Width 0.2 CV DEVICE CHECK Lead Channel RV Pacing Threshold Date 2025-06-05 CV DEVICE CHECK Lead Channel Setting Pacing Amplitude 1.000 CV DEVICE CHECK Lead Channel Setting Pacing Pulse Width 0.2 CV DEVICE CHECK Nish Setting Mode (NBG Code) VVIR CV DEVICE CHECK Nish Setting Lower Rate Limit 60 CV DEVICE CHECK Insh Setting Maximum Sensor Rate 120 CV DEVICE CHECK Date of Service 2025-06-15 CV DEVICE CHECK Anatomical Region Laterality Modality Device Interroga tion 06/05/2025 7:39 AM EDT Impressions 06/08/2025 7:51 AM EDT Normal Remote: No Events * Normal Device Function * Alerts or events: None * Battery: OK, 8.00 yrs * Sensing, impedance and thresholds reviewed * Programmed parameters reviewed * Presenting rhythm reviewed * Heart Rate Histograms reviewed * No significant changes noted Narrative Procedure Note Chito Cuellar MD - 06/08/2025 IMPRESSION: Normal Remote: No Events * Normal [...] mg/dL LAB CHEMISTRY METHOD 10/06/2024 12:57 PM [facility] Triglycerides 49 0 - 150 mg/dL LAB CHEMISTRY METHOD 10/06/2024 12:57 PM [facility] HDL 83 >=40 mg/dL LAB CHEMISTRY METHOD 10/06/2024 12:57 PM [facility] LDL Calculated 41 0 - 100 mg/dL LAB CHEMISTRY METHOD 10/06/2024 12:57 PM [facility] VLDL Cholesterol Huey 9.8 mg/dL LAB CHEMISTRY METHOD 10/06/2024 12:57 PM [facility] Non HDL Chol. (LDL+VLDL) 51 <145 mg/dL LAB CHEMISTRY METHOD 10/06/2024 12:57 PM EST [facility] Chol/HDL Ratio 1.6 0.0 - 4.4 LAB CHEMISTRY METHOD 10/06/2024 12:57 PM EST [facility] Blood Venous blood specimen / Unknown Venipuncture / Unknown 10/06/2024 9:27 AM EST 10/06/2024 9:27 AM EST us Vi TAVAREZ LAB BLOOD ORDERABLES Final Result [facility] ([facility] [address] [place] [address], [place] [phone] from Last 3 Months or Most Recently Relevant to Health Maintenance Insurance MEDICARE [facility] Advance Directives Documents on File Type Date Recorded Patient Admissions Officer Expl anation Health Care Decision (hx) 05/11/2024 ADVANCE DIRECTIVE AN D LIVING WILL Health Care Decision (hx) 02/14/2024 ADVANCE DIRECTIVE Health Care Decision (hx) 02/14/2024 ADVANCE DIRECTIVE Care Teams Vehicle Window Tinter Relationship Specialty Start Date End Date Yamil Hoyos DO [address] [place] [address] PCP - General Internal Medicine 03/06/25
--- OUTSIDE RECORDS SUMMARY | 2025-08-02 10:22 | XMS_ITS | Encounter Summary ---
Author Organization [facility] Address [address] [place] [address] Care Team Providers Care Mineral Economist Name Role Phone Yamil Hoyos DO Primary Care Provider [phone] Encounter Details Date Type Department Care Team (Late st Contact Info) Description 07/05/2025 Results Follow-Up [facility] [address] [facility] [address] [place] [phone] Janis Velázquez PA [address] [place] [address] [place] [phone] Social History Tobacco Use Types Packs/Day Years [...] AM EST documented as of this encounter Plan of Treatment Upcoming Encounters Date Type Department Care Team (Late st Contact Info) Description 12/10/2025 8:30 AM EDT Ancillary Procedure [facility] [address] [facility] [address] [place] [address] documented as of this encounter Visit Diagnoses Not on filedocumented in this encounter Care Teams Mineral Economist Relationship Specialty Start Date End Date Yamil Hoyos DO [address] [place] [address] PCP - General Internal Medicine 03/06/25 documented as of this encounter
--- OUTSIDE RECORDS SUMMARY | 2025-08-02 10:23 | XMS_ITS | Patient Health Record ---
Author Organization [facility] Address [address] [place] [address] Care Team Providers Care Manager Regional Name Role Phone JESSICA HOLMAN Primary Care Provider [facility], [facility]UR[facility] Unavailable [phone] LULY MURILLO Unavailable [phone] JOHN ERAZO Unavailable [phone] ALLERGIES Allergen (clinical drug ingredient) Drug/Non Drug Allergy documented on EMR Reaction Allergy Type Onset Date Status hydrochlorothiazide hydroCHLOROthiazide Unknown Drug Aller gy Active lisinopril Lisinopril Unknown Drug Allergy Activ e pantoprazole Protonix Unknown Drug Allergy Acti ve verapamil Verapamil Unknown Drug Allergy Active REASON FOR REFERRAL No Information MEDICATIONS Medication SIG (Take, Route, Frequency, Duration) Notes Start Date End Date Status Sodium Bicarbonate 650 MG as directed Orally Active Xarelto 20 MG 1 tablet with [...] Orally thre e days a week Active IMMUNIZATIONS Vaccine Route Administration Date Status Comme nts Influenza, Fluzone HD 65+ IM Intramuscular 05/08/2025 Admi nistered Tdap IM Intramuscular 05/23/2022 Administered SOCIAL HISTORY Tobacco Use: Social History Observation [...] Problem Paroxysmal atrial fibrillation (I48.0) Active confirmed 702934216 Problem LVH (left ventricular hypertrophy) (I51.7) Active confirmed 35993547 Problem Coronary artery disease involving agdaagux coronary artery of agdaagux heart without angina pectoris (I25.10) Active confirmed 89939362 Problem History of DVT (deep vein thrombosis) (Z86.718) Active confirmed 640976852 Problem Nonrheumatic aortic valve insufficiency (I35.1) Active confirmed 772944931 Problem Atrial fibrillation, unspecified type (I48.91) Active confirmed 93461134 Problem Postmenopausal osteoporosis (M81.0) Active confirmed 672633619 Problem LBBB (left bundle branch block) (I44.7) Active confirmed 90536860 Problem Cardiac pacemaker (Z95.0) Active confirmed 751554707 Problem Dyslipidemia (E78.5) Active confirmed 3 31723054 Problem Cerebral infarction, unspecified mechanism (I63.9) Active confirmed 018913446 Problem Chronic congestive heart failure, unspecified heart failure type (I50.9) Active confirmed 36541708 Problem Persistent atrial fibrillation (I48.19) Active confirmed 465096844 Problem Well-controlled hypertension (I10) Active confirmed 424302178 Problem Gastroesophageal reflux disease, unspecified whether esophagitis present (K21.9) Active confirmed 478355028 Problem Stage 3a chronic kidney disease (N18.31) Active confirmed 392958658 Problem Heart failure with reduced left ventricular function (I50.20) Active confirmed 75951089 VITAL SIGNS Blood pressure diastolic 80 mm Hg 06/08/2025 Height 66 in 06/08/2025 Blood pressure systolic 124 mm Hg 06/08/2025 Weight 167.8 lbs 06/08/2025 BMI 27.08 kg/m2 06/08/2025 Encounters Encounter Location Date Provider Diagnosis [facility] [address] [place] [address] 11/28/2024 LULY MURILLO [facility] [address] [place] [address] 11/28/2024 JESSICA HOLMAN [facility] [address] [place] [address] 11/28/2024 JESSICA HOLMAN [facility] [address] [place] [address] 01/30/2025 JESSICA HOLMAN [facility] [address] [place] [address] 02/01/2025 JESSICA HOLMAN [facility] [address] [place] [address] 02/09/2025 JESSICA HOLMAN Paroxysmal atrial fibrillation I48.0 ; Atherosclerosis of agdaagux coronary artery of agdaagux heart without angina pectoris I25.10 ; Screening for deficiency anemia Z13.0 and Colon cancer screening Z12.11 [facility] [address] [place] [address] 02/09/2025 JESSICA HOLMAN [facility] [address] [place] [address] 02/09/2025 JESSICA HOLMAN [facility] [address] [place] [address] 03/06/2025 JESSICA HOLMAN [facility] [address] [place] [address] 03/19/2025 JESSICA HOLMAN Dyslipidemia E78.5 ; Elevated serum creatinine R79.89 and Paroxysmal atrial fibrillation I48.0 [facility] [address] [place] [address] 03/19/2025 JESSICA HOLMAN [facility] [address] [place] [address] 05/08/2025 JESSICA HOLMAN Elevated serum creatinine R79.89 ; Coronary artery disease involving agdaagux coronary artery of agdaagux heart without angina pectoris I25.10 and Stage 3a chronic kidney disease N18.31 [facility] [address] [place] [address] 05/08/2025 NURSING [facility] Encounter for immunization Z23 [facility] [address] [place] [address] 05/08/2025 JESSICA HOLMAN [facility] [address] [place] [address] 05/09/2025 JESSICA HOLMAN [facility] [address] [place] [address] 05/31/2025 JESSICA HOLMAN [facility] [address] [place] [address] 06/08/2025 JESSICA HOLMAN [facility] [address] [place] [address] 06/08/2025 JOHN ERAZO Scratch of wrist, right, initial encounter S60.811A [facility] [address] [place] [address] 06/22/2025 JESSICA HOLMAN [facility] [address] [place] [address] 06/22/2025 JESSICA HOLMAN ASSESSMENTS Encounter Date Diagnosis Assessment Notes Treatment Notes Treatment Clinical Notes Section Notes 02/09/2025 Paroxysmal atrial fibrillation (ICD-10 - I48.0) stable on cv regimen periodic CV f/y She will call cardiology as ANG Ambriz was llooking for cardiac clearance for upper / lower endoscopy 02/09/2025 Atherosclerosis of agdaagux coronary artery of agdaagux heart without angina pectoris (ICD-10 - I25.10) stable on cv regimen 03/19/2025 Elevated serum creatinine (ICD-10 - R79.89) 03/19/2025 Dyslipidemia (ICD-10 - E78.5) 05/08/2025 Coronary artery disease involving agdaagux coronary artery of agdaagux heart without angina pectoris (ICD-10 - I25.10) she will call cardiology nurse to get report on recent cardiac test 05/08/2025 Elevated serum creatinine (ICD-10 - R79.89) 05/08/2025 Encounter for immunization (ICD-10 - Z23) HD Influenza vaccine administered. Patient counseled and VIS sheet given. 06/08/2025 Scratch of wrist, right, initial encounter (ICD-10 - S60.811A) Wound care as discussed. Reviewed appropriate treatment for bleeding while on blood thinners. Watch for signs of infection (fever, redness, swelling, increased warmth, red streaks, drainage) and follow-up or go to ER if develop. Follow-up if no improvement in 2 weeks, sooner if needed or worsening. 02/09/2025 Screening for deficiency anemia (ICD-10 - Z13.0) 03/19/2025 Paroxysmal atrial fibrillation (ICD-10 - I48.0) stable on cv regimen 05/08/2025 Stage 3a chronic kidney disease (ICD-10 - N18.31) 02/09/2025 Colon cancer screening (ICD-10 - Z12.11) cologuard form completed for fax ti Exact sciencxes and copy to pt to call in 3 wks if not heard from them PLAN OF TREATMENT Next Appt Details Provider Name:JESSICA HOLMAN, 09/11/2025 10:40:00 AM, [address] [place], [address], Insurance Providers Payer Name Payer Address Payer Phone Subscriber Number Group Number Insured Name Patient Relationship to Insured Coverage Start Date Coverage End Date MEDICARE [employer] [address] [place] [address] [id number] TRINCERI , MANOJ Self - patient is the insured [employer] [facility] [address] [place] [address] [phone] [id number] TRINCERI , MANOJ Self - patient is the insured MEDICAL [...]
== END 2025-08-02 10:11 | disposition home or self-care (01) ==
LOC: HO.HKAS 09:20
PROVIDERS: PCP Internal Medicine; Visit Provider Internal Medicine Nephrology
DX: N18.31 Chronic kidney disease, stage 3a (principal); I10 Essential (primary) hypertension; R80.8 Other proteinuria
CPT/HCPCS: 99214

== ENCOUNTER → 2025-08-02 09:19 | Outpatient (BNVA) | payer MEDICARE, SELFPAY | PROVIDERS: PCP Internal Medicine; Visit Provider Internal Medicine Nephrology | DX: I10 Essential (primary) hypertension (principal); N18.31 Chronic kidney disease, stage 3a; R80.8 Other proteinuria | CPT/HCPCS: 99212 ==